=== PATIENT | female | born 1945 | race Two or more races ===

== ENCOUNTER 2017-01-11 14:44 | Inpatient (IN) | payer MEDICARE, OTHER ==
[~2017-01-11] VITALS: Ht 153 cm; Wt 87.5 kg
[~2017-01-11 14:44] MED LIST: ALBUTEROL SULF8.5 GM INH; ASPIRIN81 MG ORAL; ATROVENT HFA12.9 GM IH; CELEBREX200 MG ORAL; CHERATUSSIN AC118 ML PO; ENALAPRIL MALEA20 MG ORAL; ENBREL25 MG SUBQ; FOLIC ACID1 MG ORAL; METFORMIN HCL500 M1 ORAL; METHOTREXATE2.5 MG PO; NEXIUM40 M2 ORAL; NEXIUM40 MG ORAL; NORVASC5 MG ORAL; PRAVACHOL20 MG ORAL; SYNTHROID125 MCG ORAL; TRAMADOL HCL50 MG ORAL
[2017-01-11] MEDS ORDERED: Albuterol ud Inhalation HHN ONE (15:15)
[2017-01-11] MEDS ORDERED: Ipratropium 0.02% Inh Soln 2.5ml UD HHN ONE (15:15)
--- NOTE | 2017-01-11 15:39 | Emergency Room Report ---
History of Present Illness General Chief Complaint: Generalized Weakness Source: Patient Present Illness HPI The patient presents with 3 days of dyspnea and weakness. She's been coughing without any phlegm. She does not have an inhaler at home and denies that she uses a breathing machine. She has felt herself wheezing. She denies any fevers or chills. Her appetite has been poor. There's no vomiting or diarrhea. The patient suffers from rheumatoid arthritis in previously was on a weekly injection to cause her to lose her hair. Her power transformer repairer changed that medication recently. She has chronic joint pain which she rates at 3/10 (but denies pain to RN). No chest pain, NVD, dysuria, Allergies: Coded Allergies: NO KNOWN DRUG ALLERGIES (Unverified Allergy, Unknown, 03/15/14) Patient History Past Medical History: see triage record Past Surgical History: nakul Social History: Denies: smoking Social History Narrative at home Reviewed Nursing Documentation: PMH: Agreed, PSxH: Agreed Nursing Documentation-PMH Past Medical History: No History, Except For Hx Cardiac Problems: Yes - HYPERLIPIDEMIA, Hx Hypertension: Yes Hx Pacemaker: No - Hypothyroidism Hx Asthma: No Hx COPD: No Hx Diabetes: Yes Hx Cancer: No Hx Gastrointestinal Problems: No Hx Dialysis: No History Of Psychiatric Problem: No Hx Neurological Problems: No Hx Cerebrovascular Accident: No Hx Seizures: No Review of Systems All Other Systems: negative except mentioned in HPI Physical Exam Vital Signs Date Time Temp Pulse Resp B/P (MAP) Pulse Ox O2 Delivery O2 Flow Rate FiO2 01/11/17 14:59 97.9 74 16 141/78 90 Room Air 01/11/17 15:26 21 Sp02 EP Interpretation: reviewed, normal General Appearance: no apparent distress, GCS 15, Chronically Ill - frail Head: normocephalic Eyes: bilateral eye normal inspection, bilateral eye PERRL ENT: moist mucus membranes Neck: supple Respiratory: wheezing, expiration - minimal - more on R Cardiovascular #1: regular rate, rhythm Cardiovascular #2: 2+ radial (R) Gastrointestinal: normal inspection, normal bowel sounds, non tender, no mass, non-distended, overweight Musculoskeletal: back normal, gait/station normal, normal range of motion, no calf tenderness, swelling - MCPs with RA deformity Neurologic: alert, oriented x3, grossly normal Psychiatric: mood/affect normal Skin: normal inspection, warm/dry Medical Decision Making Diagnostic Impression: Primary Impression: Dyspnea Qualified Codes: R06.09 - Other forms of dyspnea Additional Impressions: Anemia Qualified Codes: D64.9 - Anemia, unspecified Elevated lactic acid level Bronchospasm Rheumatoid arthritis Qualified Codes: M06.9 - Rheumatoid arthritis, unspecified ER Course The patient presents with dyspnea. Differential includes pneumonia, bronchitis , bronchospasm, acute myocardial infarction, pulmonary embolus amongst others. She's been treated for rheumatoid arthritis. The medicines she is being treated with makes her at risk for possible infection. There is evidence of wheezing which will be treated with breathing treatments. In addition she'll undergo evaluation with blood cultures, EKG, chest x-ray, lactate, CBC, CMP, troponin. Vital signs and history are against pulmonary embolus. EKG is sinus rhythm with a right bundle branch block without acute injury pattern. CXR with interstitial machado, cannot exclude CHF, but no infiltrates. (Suggests no pneumonia.) Labs significant for normal, WBC, anemia, elevated lactic acid. Due to elevated lactic acid and dyspnea with wheezing, levaquin initiated. Improved but still with some hypoxia and dyspnea. Concern over lactic acidosis. Also concern over poor alimentation. Admit tele Dr. Blackburn. Laboratory Tests Test 01/11/17 16:06 01/11/17 16:11 01/11/17 16:40 01/11/17 17:11 White Blood Count 6.9 K/UL (4.8-10.8) Red Blood Count 3.13 M/UL (4.20-5.40) L Hemoglobin 9.3 G/DL (12.0-16.0) L Hematocrit 29.0 % (37.0-47.0) L Mean Corpuscular Volume 93 FL (80-99) Mean Corpuscular Hemoglobin 29.8 PG (27.0-31.0) Mean Corpuscular Hemoglobin Concent 32.2 G/DL (32.0-36.0) Red Cell Distribution Width 13.6 % (11.6-14.8) Platelet Count 120 K/UL (150-450) L Mean Platelet Volume 7.9 FL (6.5-10.1) Neutrophils (%) (Auto) 43.2 % (45.0-75.0) L Lymphocytes (%) (Auto) 44.5 % (20.0-45.0) Monocytes (%) (Auto) 9.1 % (1.0-10.0) Eosinophils (%) (Auto) 2.0 % (0.0-3.0) Basophils (%) (Auto) 1.2 % (0.0-2.0) Sodium Level 134 MMOL/L (136-145) L 136 MMOL/L (136-145) Potassium Level 5.7 MMOL/L (3.5-5.1) H 4.7 MMOL/L (3.5-5.1) Chloride Level 101 MMOL/L (98-107) 103 MMOL/L (98-107) Carbon Dioxide Level 27 MMOL/L (21-32) 28 MMOL/L (21-32) Anion Gap 6 mmol/L (5-15) 6 mmol/L (5-15) Blood Urea Nitrogen 21 mg/dL (7-18) H 22 mg/dL (7-18) H Creatinine 0.8 MG/DL (0.55-1.30) 0.8 MG/DL (0.55-1.30) Estimate Glomerular Filtration Rate mL/min (>60) mL/min (>60) Glucose Level 96 MG/DL (74-106) 93 MG/DL (74-106) Calcium Level 9.3 MG/DL (8.5-10.1) 9.6 MG/DL (8.5-10.1) Total Bilirubin 0.3 MG/DL (0.2-1.0) Aspartate Amino Transferase (AST) 35 U/L (15-37) Alanine Aminotransferase (ALT) 17 U/L (12-78) Alkaline Phosphatase 102 U/L (46-116) Total Creatine Kinase 63 U/L (26-308) Pro-B-Type Natriuretic Peptide 172 pg/mL (0-125) H Total Protein 8.3 G/DL (6.4-8.2) H Albumin 3.0 G/DL (3.4-5.0) L Globulin 5.3 g/dL Albumin/Globulin Ratio 0.6 (1.0-2.7) L Lactic Acid Level 2.80 mmol/L (0.66-2.22) H Prothrombin Time 9.9 SEC (9.30-11.50) Prothrombin Time INR 0.9 (0.9-1.1) PTT 26 SEC (23-33) Test 01/11/17 18:00 Urine Color Yellow Urine Appearance Clear Urine pH 5 (4.5-8.0) Urine Specific [place] 1.015 (1.005-1.035) Urine Protein Negative (NEGATIVE) Urine Glucose (UA) Negative (NEGATIVE) Urine Ketones Negative (NEGATIVE) Urine Occult Blood Negative (NEGATIVE) Urine Nitrite Negative (NEGATIVE) Urine Bilirubin Negative (NEGATIVE) Urine Urobilinogen 1 MG/DL (0.0-1.0) H Urine Leukocyte Esterase 2+ (NEGATIVE) H Urine RBC 0-2 /HPF (0 - 2) Urine WBC 2-4 /HPF (0 - 2) Urine Squamous Epithelial Cells Few /LPF (NONE/OCC) Urine Bacteria Few /HPF (NONE) Lactic Acid Level 2.80 mmol/L (0.66-2.22) H Microbiology Date/Time Source Procedure Growth Status 01/11/17 16:06 Nasal Nares Influenza Types A,B Antigen (ANUJA) - Final Complete EKG Diagnostic Results Rate: normal Rhythm: NSR ST Segments: no acute changes - Right bundle branch block Rhythm Strip Diag. Results EP Interpretation: yes Rhythm: NSR, no PVC's, no ectopy Chest X-Ray Diagnostic Results Chest X-Ray Diagnostic Results : Chest X-Ray Ordered: Yes # of Views/Limited/Complete: 1 View Indication: Shortness of Breath EP Interpretation: Yes Interpretation: no pneumothorax, other - interstitial edema vs scarring - cannot exclude effusions Impression: Other Electronically Signed by: Electronically signed by Amador Pineda MD Last Vital Signs Date Time Temp Pulse Resp B/P (MAP) Pulse Ox O2 Delivery O2 Flow Rate FiO2 01/12/17 01:07 74 20 99 Room Air 21 01/11/17 23:58 97.7 154/73 4.0 Status: improved Disposition: ADMITTED INPATIENT Condition: Serious Amador Pineda M.D. Jan 11, 2017 15:39
[2017-01-11 16:23] LABS: BASOPHILS % (AUTO) 1.2 % (0.0-2.0); HEMOGLOBIN 9.3 G/DL (12.0-16.0); LYMPHOCYTES % (AUTO) 44.5 % (20.0-45.0); MEAN CORPUSCULAR VOLUME 93 FL (80-99); MONOCYTES % (AUTO) 9.1 % (1.0-10.0); NEUTROPHILS % (AUTO) 43.2 % (45.0-75.0); PLATELET COUNT 120 K/UL (150-450); RED BLOOD COUNT 3.13 M/UL (4.20-5.40); RED CELL DISTRIBUTION WIDTH 13.6 % (11.6-14.8); WHITE BLOOD COUNT 6.9 K/UL (4.8-10.8)
[2017-01-11 16:41] LABS: ALANINE AMINOTRANSFERASE 17 U/L (12-78); ALBUMIN/GLOBULIN RATIO 0.6 (1.0-2.7); ALKALINE PHOSPHATASE 102 U/L (46-116); ANION GAP 6 mmol/L (5-15); ASPARTATE AMINO TRANSFERASE 35 U/L (15-37); BILIRUBIN,TOTAL 0.3 MG/DL (0.2-1.0); BLOOD UREA NITROGEN 21 mg/dL (7-18); CALCIUM 9.3 MG/DL (8.5-10.1); CARBON DIOXIDE 27 MMOL/L (21-32); CHLORIDE 101 MMOL/L (98-107); CREATININE 0.8 MG/DL (0.55-1.30); POTASSIUM 5.7 MMOL/L (3.5-5.1); SODIUM 134 MMOL/L (136-145)
[2017-01-11 16:48] LABS: CREATINE KINASE 63 U/L (26-308)
[2017-01-11 17:18] LABS: ANION GAP 6 mmol/L (5-15); BLOOD UREA NITROGEN 22 mg/dL (7-18); CALCIUM 9.6 MG/DL (8.5-10.1); CARBON DIOXIDE 28 MMOL/L (21-32); CHLORIDE 103 MMOL/L (98-107); CREATININE 0.8 MG/DL (0.55-1.30); POTASSIUM 4.7 MMOL/L (3.5-5.1); SODIUM 136 MMOL/L (136-145)
[2017-01-11 17:23] VITALS: BP 122/39
[2017-01-11 17:46] LABS: INR 0.9 (0.9-1.1)
[2017-01-11 18:22] LABS: APPEARANCE,URINE CLEAR; BILIRUBIN, URINE NEGATIVE (NEGATIVE); GLUCOSE, URINE (UA) NEGATIVE (NEGATIVE); KETONES,URINE NEGATIVE (NEGATIVE); LEUKOCYTE ESTERASE ,URINE 2+ (NEGATIVE); NITRITE,URINE NEGATIVE (NEGATIVE); PH,URINE 5 (4.5-8.0); PROTEIN,URINE NEGATIVE (NEGATIVE); UROBILINOGEN,URINE 1 MG/DL (0.0-1.0)
[2017-01-11 18:23] LABS: COLOR,URINE YELLOW
[2017-01-11 19:10] VITALS: BP 118/68
[2017-01-11 20:05] VITALS: BP 118/78
[2017-01-11 21:01] VITALS: BP 120/56
[2017-01-11 22:00] VITALS: BP 126/58
--- NOTE | 2017-01-11 22:36 | Infectious Diseases Prog Note ---
Assessment/Plan Problems: (1) CAP (community acquired pneumonia) Assessment & Plan: with negative influenza test, will start levaquin empiric coverage and treat for 7 days since she is immunocompromised due to RA (2) UTI (urinary tract infection) Assessment & Plan: will start levaquin empiric coverage and send urine culture (3) Rheumatoid arthritis Assessment & Plan: continue Meds , follow up with veterans service representative (4) Dyspnea Assessment & Plan: due to the above, continue inhalers, and oxygen, monitor CXR Subjective Allergies: Coded Allergies: NO KNOWN DRUG ALLERGIES (Unverified Allergy, Unknown, 03/15/14) Objective Vital Signs Last 24 Hour Vital Signs Date Time Temp Pulse Resp B/P (MAP) Pulse Ox O2 Delivery O2 Flow Rate FiO2 01/11/17 22:10 70 14 126/58 96 Nasal Cannula 4.0 01/11/17 22:00 98.7 70 14 126/58 96 Nasal Cannula 4.0 01/11/17 21:01 98.2 68 14 120/56 96 Nasal Cannula 4.0 01/11/17 20:05 98.6 72 14 118/78 97 Nasal Cannula 4.0 01/11/17 19:10 98.4 76 13 118/68 96 Nasal Cannula 4.0 01/11/17 17:23 98.0 69 14 122/39 96 Nasal Cannula 3.0 01/11/17 15:39 68 20 97 Room Air 21 01/11/17 15:28 73 20 97 Room Air 21 01/11/17 15:26 73 18 Room Air 21 01/11/17 14:59 97.9 74 16 141/78 90 Room Air Height (Feet): 5 Height (Inches): 4.00 Weight (Pounds): 190 Microbiology Date/Time Source Procedure Growth Status 01/11/17 16:06 Nasal Nares Influenza Types A,B Antigen (ANUJA) - Final Complete Laboratory Tests Test 01/11/17 16:06 01/11/17 16:11 01/11/17 16:40 01/11/17 17:11 White Blood Count 6.9 K/UL (4.8-10.8) Red Blood Count 3.13 M/UL (4.20-5.40) L Hemoglobin 9.3 G/DL (12.0-16.0) L Hematocrit 29.0 % (37.0-47.0) L Mean Corpuscular Volume 93 FL (80-99) Mean Corpuscular Hemoglobin 29.8 PG (27.0-31.0) Mean Corpuscular Hemoglobin Concent 32.2 G/DL (32.0-36.0) Red Cell Distribution Width 13.6 % (11.6-14.8) Platelet Count 120 K/UL (150-450) L Mean Platelet Volume 7.9 FL (6.5-10.1) Neutrophils (%) (Auto) 43.2 % (45.0-75.0) L Lymphocytes (%) (Auto) 44.5 % (20.0-45.0) Monocytes (%) (Auto) 9.1 % (1.0-10.0) Eosinophils (%) (Auto) 2.0 % (0.0-3.0) Basophils (%) (Auto) 1.2 % (0.0-2.0) Sodium Level 134 MMOL/L (136-145) L 136 MMOL/L (136-145) Potassium Level 5.7 MMOL/L (3.5-5.1) H 4.7 MMOL/L (3.5-5.1) Chloride Level 101 MMOL/L (98-107) 103 MMOL/L (98-107) Carbon Dioxide Level 27 MMOL/L (21-32) 28 MMOL/L (21-32) Anion Gap 6 mmol/L (5-15) 6 mmol/L (5-15) Blood Urea Nitrogen 21 mg/dL (7-18) H 22 mg/dL (7-18) H Creatinine 0.8 MG/DL (0.55-1.30) 0.8 MG/DL (0.55-1.30) Estimat Glomerular Filtration Rate mL/min (>60) mL/min (>60) Glucose Level 96 MG/DL (74-106) 93 MG/DL (74-106) Calcium Level 9.3 MG/DL (8.5-10.1) 9.6 MG/DL (8.5-10.1) Total Bilirubin 0.3 MG/DL (0.2-1.0) Aspartate Amino Transf (AST/SGOT) 35 U/L (15-37) Alanine Aminotransferase (ALT/SGPT) 17 U/L (12-78) Alkaline Phosphatase 102 U/L (46-116) Total Creatine Kinase 63 U/L (26-308) Pro-B-Type Natriuretic Peptide 172 pg/mL (0-125) H Total Protein 8.3 G/DL (6.4-8.2) H Albumin 3.0 G/DL (3.4-5.0) L Globulin 5.3 g/dL Albumin/Globulin Ratio 0.6 (1.0-2.7) L Lactic Acid Level 2.80 mmol/L (0.66-2.22) H Prothrombin Time 9.9 SEC (9.30-11.50) Prothromb Time International Ratio 0.9 (0.9-1.1) Activated Partial Thromboplast Time 26 SEC (23-33) Test 01/11/17 18:00 Urine Color Yellow Urine Appearance Clear Urine pH 5 (4.5-8.0) Urine Specific [place] 1.015 (1.005-1.035) Urine Protein Negative (NEGATIVE) Urine Glucose (UA) Negative (NEGATIVE) Urine Ketones Negative (NEGATIVE) Urine Occult Blood Negative (NEGATIVE) Urine Nitrite Negative (NEGATIVE) Urine Bilirubin Negative (NEGATIVE) Urine Urobilinogen 1 MG/DL (0.0-1.0) H Urine Leukocyte Esterase 2+ (NEGATIVE) H Urine RBC 0-2 /HPF (0 - 2) Urine WBC 2-4 /HPF (0 - 2) Urine Squamous Epithelial Cells Few /LPF (NONE/OCC) Urine Bacteria Few /HPF (NONE) Lactic Acid Level 2.80 mmol/L (0.66-2.22) H Senait Sandoval M.D. Jan 11, 2017 22:36
[2017-01-11] MEDS ORDERED: Acetaminophen 500mg (ES) tab ORAL PRN (23:15)
[2017-01-11 23:58] VITALS: BP 154/73
[2017-01-12] MEDS: Albuterol/Ipratropium 3ml neb HHN PRN ×5 (01:06→21:16)
[2017-01-12] MEDS: guaiFENesin DM 100mg/5ml ORAL PRN ×3 (01:43→15:18)
[2017-01-12 04:21] VITALS: BP 116/62
[2017-01-12] MEDS: NovoLOG Insulin Flexpen SUBQ SCH ×4 (06:30→21:00)
[2017-01-12 07:02] LABS: BASOPHILS % (AUTO) 0.6 % (0.0-2.0); EOSINOPHILS % (AUTO) 2.3 % (0.0-3.0); HEMATOCRIT 36.6 % (37.0-47.0); HEMOGLOBIN 11.7 G/DL (12.0-16.0); LYMPHOCYTES % (AUTO) 24.9 % (20.0-45.0); MEAN CORPUSCULAR VOLUME 93 FL (80-99); MONOCYTES % (AUTO) 11.1 % (1.0-10.0); NEUTROPHILS % (AUTO) 61.2 % (45.0-75.0); PLATELET COUNT 226 K/UL (150-450); RED BLOOD COUNT 3.93 M/UL (4.20-5.40); RED CELL DISTRIBUTION WIDTH 13.7 % (11.6-14.8); WHITE BLOOD COUNT 8.6 K/UL (4.8-10.8)
[2017-01-12 07:28] LABS: ANION GAP 9 mmol/L (5-15); BLOOD UREA NITROGEN 21 mg/dL (7-18); CALCIUM 9.3 MG/DL (8.5-10.1); CARBON DIOXIDE 26 MMOL/L (21-32); CHLORIDE 104 MMOL/L (98-107); CREATININE 0.8 MG/DL (0.55-1.30); POTASSIUM 4.5 MMOL/L (3.5-5.1); SODIUM 139 MMOL/L (136-145)
--- NOTE | 2017-01-12 07:29 | Consultation ---
Consult Note Assessment/Plan [id number] cough copd exacerbation uti ra on IS therapy hypoxemia cough TEMITOPETANI DO Jan 12, 2017 07:29
--- NOTE | 2017-01-12 07:29 | Consultation ---
Consult Note Assessment/Plan [id number] cough copd exacerbation uti ra on IS therapy hypoxemia cough TEMITOPETANI DO Jan 12, 2017 07:29
--- NOTE | 2017-01-12 07:29 | Consultation ---
Consult Note Assessment/Plan [id number] cough copd exacerbation uti ra on IS therapy hypoxemia cough TEMITOPETANI DO Jan 12, 2017 07:29
[2017-01-12 08:48] VITALS: BP 147/67
[2017-01-12] MEDS: metFORMIN 500mg tab ORAL SCH ×2 (08:49→17:40)
[2017-01-12] MEDS ORDERED: Levothyroxine 125mcg tab ORAL SCH (09:00)
--- NOTE | 2017-01-12 11:09 | Diagnostic Imaging Report ---
Indication: Dyspnea Technique: CHEST 1 VIEW Comparison:03/15/2014 Findings: The heart remains enlarged. Diffuse chronic interstitial disease remains. No gross pleural fluid. The bones are unchanged. Impression: Cardiomegaly. Chronic interstitial disease, unchanged from previous exam.
[2017-01-12 11:48] VITALS: BP 114/63
[2017-01-12 15:37] VITALS: BP 105/52
--- NOTE | 2017-01-12 16:12 | Cardiology Progress Note ---
Assessment/Plan Assessment/Plan The patient is seen and examined, full consult note will be dictated. Objective Last 24 Hour Vital Signs Date Time Temp Pulse Resp B/P (MAP) Pulse Ox O2 Delivery O2 Flow Rate FiO2 01/12/17 15:37 97.7 78 20 105/52 95 Nasal Cannula 3.0 01/12/17 15:34 71 18 97 Nasal Cannula 2.0 28 01/12/17 11:48 97.7 84 20 114/63 94 Nasal Cannula 3.0 01/12/17 11:28 76 18 98 Nasal Cannula 2.0 28 01/12/17 11:20 74 16 96 Nasal Cannula 2.0 28 01/12/17 08:50 79 147/67 01/12/17 08:48 97.3 79 20 147/67 93 Nasal Cannula 4.0 01/12/17 08:48 147/67 01/12/17 08:00 76 01/12/17 07:09 72 16 98 Nasal Cannula 2.0 28 01/12/17 07:01 72 18 Nasal Cannula 2.0 28 01/12/17 07:01 72 16 96 Nasal Cannula 2.0 28 01/12/17 07:01 96 Nasal Cannula 2.0 28 01/12/17 07:01 Nasal Cannula 2.0 28 01/12/17 04:21 97.3 72 20 116/62 94 Room Air 01/12/17 04:00 74 01/12/17 01:07 74 20 99 Room Air 21 01/12/17 01:06 70 20 97 Room Air 21 01/12/17 01:00 Nasal Cannula 2.0 28 01/12/17 01:00 70 20 Nasal Cannula 2.0 28 01/12/17 01:00 97 Nasal Cannula 2.0 28 01/11/17 23:58 97.7 69 20 154/73 95 Nasal Cannula 4.0 01/11/17 23:25 66 01/11/17 22:10 70 14 126/58 96 Nasal Cannula 4.0 01/11/17 22:00 98.7 70 14 126/58 96 Nasal Cannula 4.0 01/11/17 21:01 98.2 68 14 120/56 96 Nasal Cannula 4.0 01/11/17 20:05 98.6 72 14 118/78 97 Nasal Cannula 4.0 01/11/17 19:10 98.4 76 13 118/68 96 Nasal Cannula 4.0 01/11/17 17:23 98.0 69 14 122/39 96 Nasal Cannula 3.0 Intake and Output 01/12/17 01/13/17 19:00 07:00 Intake Total 120 ml Output Total 350 ml Balance -230 ml Intake Oral 120 ml Output Urine Total 350 ml Laboratory Tests Test 01/11/17 16:40 01/11/17 17:11 01/11/17 18:00 01/12/17 06:30 Sodium Level 136 MMOL/L (136-145) 139 MMOL/L (136-145) Potassium Level 4.7 MMOL/L (3.5-5.1) 4.5 MMOL/L (3.5-5.1) Chloride Level 103 MMOL/L (98-107) 104 MMOL/L (98-107) Carbon Dioxide Level 28 MMOL/L (21-32) 26 MMOL/L (21-32) Anion Gap 6 mmol/L (5-15) 9 mmol/L (5-15) Blood Urea Nitrogen 22 mg/dL (7-18) H 21 mg/dL (7-18) H Creatinine 0.8 MG/DL (0.55-1.30) 0.8 MG/DL (0.55-1.30) Estimat Glomerular Filtration Rate mL/min (>60) mL/min (>60) Glucose Level 93 MG/DL (74-106) 108 MG/DL (74-106) H Calcium Level 9.6 MG/DL (8.5-10.1) 9.3 MG/DL (8.5-10.1) Prothrombin Time 9.9 SEC (9.30-11.50) Prothromb Time International Ratio 0.9 (0.9-1.1) Activated Partial Thromboplast Time 26 SEC (23-33) Urine Color Yellow Urine Appearance Clear Urine pH 5 (4.5-8.0) Urine Specific [place] 1.015 (1.005-1.035) Urine Protein Negative (NEGATIVE) Urine Glucose (UA) Negative (NEGATIVE) Urine Ketones Negative (NEGATIVE) Urine Occult Blood Negative (NEGATIVE) Urine Nitrite Negative (NEGATIVE) Urine Bilirubin Negative (NEGATIVE) Urine Urobilinogen 1 MG/DL (0.0-1.0) H Urine Leukocyte Esterase 2+ (NEGATIVE) H Urine RBC 0-2 /HPF (0 - 2) Urine WBC 2-4 /HPF (0 - 2) Urine Squamous Epithelial Cells Few /LPF (NONE/OCC) Urine Bacteria Few /HPF (NONE) Lactic Acid Level 2.80 mmol/L (0.66-2.22) H White Blood Count 8.6 K/UL (4.8-10.8) Red Blood Count 3.93 M/UL (4.20-5.40) L Hemoglobin 11.7 G/DL (12.0-16.0) L Hematocrit 36.6 % (37.0-47.0) L Mean Corpuscular Volume 93 FL (80-99) Mean Corpuscular Hemoglobin 29.8 PG (27.0-31.0) Mean Corpuscular Hemoglobin Concent 32.0 G/DL (32.0-36.0) Red Cell Distribution Width 13.7 % (11.6-14.8) Platelet Count 226 K/UL (150-450) # Mean Platelet Volume 7.3 FL (6.5-10.1) Neutrophils (%) (Auto) 61.2 % (45.0-75.0) Lymphocytes (%) (Auto) 24.9 % (20.0-45.0) Monocytes (%) (Auto) 11.1 % (1.0-10.0) H Eosinophils (%) (Auto) 2.3 % (0.0-3.0) Basophils (%) (Auto) 0.6 % (0.0-2.0) Pro-B-Type Natriuretic Peptide 126 pg/mL (0-125) H Microbiology Date/Time Source Procedure Growth Status 01/11/17 16:06 Nasal Nares Influenza Types A,B Antigen (ANUJA) - Final Complete SOLO HIGGINS Jan 12, 2017 16:12
[2017-01-12 17:45] VITALS: BP 109/50
--- NOTE | 2017-01-12 20:00 | Consultation ---
DATE OF CONSULTATION: 01/12/2017 NOTE: INCOMPLETE DICTATION INFECTIOUS DISEASE CONSULTATION CONSULTING PHYSICIAN: Senait Sandoval M.D. REQUESTING PHYSICIAN: Roxanne Blackburn M.D. REASON FOR CONSULTATION: Pneumonia and UTI, recommendation for antibiotics treatment. HISTORY OF PRESENT ILLNESS: The patient is a 71-year-old female with past medical history of hyperlipidemia, hypothyroidism, hypertension, and diabetes, was sent to [facility] emergency room for progressive cough and dyspnea for few days and weakness. The patient had a history of COPD. She used her home nebulizer, but she did not get much benefit. She had also wheezing. No fever or chills. No recent upper respiratory infection. No recent travel or sick contact. She has poor appetite, but no abdominal pain, nausea, vomiting, or diarrhea. The patient had a known history of rheumatoid arthritis and she is on biological medication to treat, which she received on regular basis by her beverage distiller. In the emergency room, the patient had temperature of 97.9, saturating 90% on room air. Chest x-ray showed some interstitial edema suspicious for pneumonia. Urinalysis showed evidence of urinary tract infection. She was consulted by the primary provider for antibiotics treatment and further management. REVIEW OF SYSTEMS: A 14-point of system reviewed were all negative apart from the one I mentioned above in my History and Physical. PAST MEDICAL HISTORY: Significant for diabetes, COPD, hypothyroidism, hypertension, and hyperlipidemia. PAST SURGICAL HISTORY: She has cholecystectomy. ALLERGIES: No known drug allergies. MEDICATIONS: She received levofloxacin in the emergency room and Proventil with Atrovent. For the rest of her medications, please refer to MAR. SOCIAL HISTORY: The patient denied using any drugs, tobacco, or alcohol. FAMILY HISTORY: Noncontributory. LABORATORY AND DIAGNOSTIC DATA: Labs showed white count of 6.9, hemoglobin of 9.3, and platelet count of 120,000. BUN of 22 and creatinine of 0.8. Urinalysis showed +2 leukocyte esterase, WBC 2 to 4, and few bacteria. Microbiology, influenza screening for A and B both are negative. Imaging, chest x-ray showed interstitial pulmonary infiltrates. PHYSICAL EXAMINATION: VITAL SIGNS: Temperature is 97.7 degrees, pulse 69, respirations 20, blood pressure 154/73, and pulse oximetry 95% on 4 liters nasal cannula. Senait Sandoval M.D. DR: NAY JOB#: [id number] CC:
[2017-01-12 20:40] VITALS: BP 102/58
--- NOTE | 2017-01-12 21:23 | Infectious Diseases Prog Note ---
Assessment/Plan Problems: (1) CAP (community acquired pneumonia) Assessment & Plan: with negative influenza test, continue levaquin empiric coverage and treat for 7 days since she is immunocompromised due to RA (2) UTI (urinary tract infection) Assessment & Plan: on levaquin empiric coverage pending urine culture (3) Rheumatoid arthritis Assessment & Plan: continue Meds , follow up with medical record specialist (4) Dyspnea Assessment & Plan: due to the above, continue inhalers, and oxygen, monitor CXR Subjective ROS Limited/Unobtainable: Yes Allergies: Coded Allergies: NO KNOWN DRUG ALLERGIES (Unverified Allergy, Unknown, 03/15/14) Subjective she was up in bed comfortable, no fever or chills, no cough or sob, no diarrhea Objective Vital Signs Last 24 Hour Vital Signs Date Time Temp Pulse Resp B/P (MAP) Pulse Ox O2 Delivery O2 Flow Rate FiO2 01/12/17 21:17 70 20 99 Nasal Cannula 2.0 28 01/12/17 21:16 66 20 98 Nasal Cannula 2.0 28 01/12/17 20:40 97.9 63 19 102/58 94 Room Air 01/12/17 19:44 Nasal Cannula 2.0 28 01/12/17 19:43 74 20 Nasal Cannula 2.0 28 01/12/17 19:43 98 Nasal Cannula 2.0 28 01/12/17 17:45 74 109/50 01/12/17 16:00 76 01/12/17 15:37 97.7 78 20 105/52 95 Nasal Cannula 3.0 01/12/17 15:34 71 18 97 Nasal Cannula 2.0 01/12/17 12:00 75 01/12/17 11:48 97.7 84 20 114/63 94 Nasal Cannula 3.0 01/12/17 11:28 76 18 98 Nasal Cannula 2.0 28 01/12/17 11:20 74 16 96 Nasal Cannula 2.0 28 01/12/17 08:50 79 147/67 01/12/17 08:48 97.3 79 20 147/67 93 Nasal Cannula 4.0 01/12/17 08:48 147/67 01/12/17 08:00 76 01/12/17 07:09 72 16 98 Nasal Cannula 2.0 28 01/12/17 07:01 72 18 Nasal Cannula 2.0 28 01/12/17 07:01 72 16 96 Nasal Cannula 2.0 28 01/12/17 07:01 96 Nasal Cannula 2.0 28 01/12/17 07:01 Nasal Cannula 2.0 28 01/12/17 04:21 97.3 72 20 116/62 94 Room Air 01/12/17 04:00 74 01/12/17 01:07 74 20 99 Room Air 21 01/12/17 01:06 70 20 97 Room Air 21 01/12/17 01:00 Nasal Cannula 2.0 28 01/12/17 01:00 70 20 Nasal Cannula 2.0 28 01/12/17 01:00 97 Nasal Cannula 2.0 28 01/11/17 23:58 97.7 69 20 154/73 95 Nasal Cannula 4.0 01/11/17 23:25 66 01/11/17 22:10 70 14 126/58 96 Nasal Cannula 4.0 01/11/17 22:00 98.7 70 14 126/58 96 Nasal Cannula 4.0 Height (Feet): 5 Height (Inches): 0.25 Weight (Pounds): 193 General Appearance: WD/WN, no acute distress HEENT: normocephalic, atraumatic, anicteric, mucous membranes moist, PERRL Respiratory/Chest: chest wall non-tender, lungs clear, normal breath sounds, no respiratory distress, no accessory muscle use Cardiovascular: normal peripheral pulses, normal rate, regular rhythm, no gallop/murmur, no JVD Abdomen: normal bowel sounds, soft, non tender, no organomegaly, non distended , no mass, no scars Genitourinary: normal external genitalia Extremities: no cyanosis, no clubbing Skin: no rash, no lesions, no ulcers Neurologic/Psychiatric: alert, responsive Microbiology Date/Time Source Procedure Growth Status 01/11/17 16:06 Nasal Nares Influenza Types A,B Antigen (ANUJA) - Final Complete Laboratory Tests Test 01/12/17 06:30 White Blood Count 8.6 K/UL (4.8-10.8) Red Blood Count 3.93 M/UL (4.20-5.40) L Hemoglobin 11.7 G/DL (12.0-16.0) L Hematocrit 36.6 % (37.0-47.0) L Mean Corpuscular Volume 93 FL (80-99) Mean Corpuscular Hemoglobin 29.8 PG (27.0-31.0) Mean Corpuscular Hemoglobin Concent 32.0 G/DL (32.0-36.0) Red Cell Distribution Width 13.7 % (11.6-14.8) Platelet Count 226 K/UL (150-450) # Mean Platelet Volume 7.3 FL (6.5-10.1) Neutrophils (%) (Auto) 61.2 % (45.0-75.0) Lymphocytes (%) (Auto) 24.9 % (20.0-45.0) Monocytes (%) (Auto) 11.1 % (1.0-10.0) H Eosinophils (%) (Auto) 2.3 % (0.0-3.0) Basophils (%) (Auto) 0.6 % (0.0-2.0) Sodium Level 139 MMOL/L (136-145) Potassium Level 4.5 MMOL/L (3.5-5.1) Chloride Level 104 MMOL/L (98-107) Carbon Dioxide Level 26 MMOL/L (21-32) Anion Gap 9 mmol/L (5-15) Blood Urea Nitrogen 21 mg/dL (7-18) H Creatinine 0.8 MG/DL (0.55-1.30) Estimat Glomerular Filtration Rate mL/min (>60) Glucose Level 108 MG/DL (74-106) H Calcium Level 9.3 MG/DL (8.5-10.1) Pro-B-Type Natriuretic Peptide 126 pg/mL (0-125) H Current Medications Medications (Trade) Dose Ordered Sig/Harsh Route PRN Reason Start Time Stop Time Status Last Admin Dose Admin Acetaminophen (Tylenol) 500 mg Q4H PRN ORAL Mild Pain/Temp > 100.5 01/11/17 23:15 02/10/17 23:14 Albuterol/ Ipratropium (Albuterol/ Ipratropium) 3 ml Q4H PRN HHN Shortness of Breath 01/11/17 23:15 01/16/17 23:14 01/12/17 21:16 Amlodipine Besylate (Norvasc) 5 mg BID ORAL 01/11/17 23:15 02/10/17 23:14 01/12/17 08:50 Dextrose (Dextrose 50%) STAT PRN IV Hypoglycemia 01/11/17 23:15 02/10/17 23:14 Enalapril Maleate (Vasotec) 20 mg DAILY ORAL 01/12/17 09:00 02/11/17 08:59 01/12/17 08:48 Guaifenesin/ Dextromethorphan (Robitussin DM) 5 ml Q6H PRN ORAL For Cough 01/12/17 01:15 02/11/17 01:14 01/12/17 15:18 Insulin Aspart (NovoLOG) BEFORE MEALS AND HS SUBQ 01/12/17 06:30 02/11/17 06:29 01/12/17 17:33 Levofloxacin 100 ml @ 100 mls/hr Q24H IVPB 01/12/17 16:00 01/19/17 15:59 01/12/17 15:31 Levothyroxine Sodium (Synthroid) 125 mcg ACBREAKFAST ORAL 01/13/17 06:30 02/12/17 06:29 Metformin HCl (Glucophage) 500 mg TWICE A DAY ORAL 01/12/17 09:00 02/11/17 08:59 01/12/17 17:40 Pravastatin Sodium (Pravachol) 40 mg DAILY ORAL 01/12/17 09:00 02/11/17 08:59 01/12/17 08:49 Senait Sandoval M.D. Jan 12, 2017 21:23
--- NOTE | 2017-01-12 21:45 | Consultation ---
DATE OF CONSULTATION: 01/12/2017 CARDIOLOGY CONSULTATION REFERRING PHYSICIAN: Roxanne Blackburn M.D. REASON FOR CONSULTATION: Management of dyspnea from Cardiology standpoint. HISTORY OF PRESENT ILLNESS: The patient is a very pleasant, morbidly obese, 71-year-old female, who presents to the hospital with dyspnea, weakness, and nonproductive cough for about three days. The patient had some associated wheezing but no fever or chills. She claims that following receiving flu shot, she started to have cough with shortness of breath. She denies any prior history of coronary artery disease or congestive heart failure. Her risk factor for coronary artery disease includes tobacco use for almost 40 years about 3 to 4 cigarettes per day, history of hypertension, and history of diabetes mellitus. On arrival to the hospital, a 12-lead electrocardiogram showed sinus rhythm, heart rate of 70 with right bundle-branch block with no ST and T-wave abnormalities. She was admitted to telemetry for further evaluation and management. I was asked by Dr. Blackburn to see this patient in Cardiology consultation. PAST MEDICAL HISTORY: Hypertension, diabetes mellitus, hyperlipidemia, and hypothyroidism. PAST SURGICAL HISTORY: Cholecystectomy. SOCIAL HISTORY: A 3 to 4 cigarettes per day for about 40 years. Denies any alcohol or illicit drug use. FAMILY HISTORY: No premature coronary artery disease in first-degree relatives. REVIEW OF SYSTEMS: HEENT: Denies any headache, diplopia, or blurred vision. CONSTITUTIONAL: Denies any fever, chills, or night sweats. CARDIOVASCULAR: Denies any chest pain and shortness of breath as mentioned above. Denies any PND, orthopnea, leg swelling, palpitations, or syncope. PULMONARY: Cough as mentioned nonproductive, dry, and shortness of breath as mentioned above. No hemoptysis. She also claims that she had wheezing. ABDOMEN: No diarrhea, constipation, abdominal pain, or GI bleed. GENITOURINARY: Denies any hematuria, dysuria, or incontinence. NEUROLOGIC: Denies any motor dysfunction, sensory deficit, or altered speech. LIST OF MEDICATIONS: Includes amlodipine 5 mg p.o. twice daily, Celebrex 200 mg daily, enalapril 20 mg daily, Nexium 40 mg daily, Synthroid 125 mcg daily, metformin 500 mg twice daily, and Pravachol 80 mg p.o. at bedtime. PHYSICAL EXAMINATION: VITAL SIGNS: Blood pressure at the time of arrival to the hospital was 141/78, pulse of 74, respirations 16, O2 saturation 98% on room air, and temperature 97.9 degrees Fahrenheit. GENERAL: The patient is a very pleasant, 71-year-old female, in no apparent respiratory distress. Morbidly obese. HEENT: Atraumatic and normocephalic. Anicteric. Pupils are equal, round, and reactive to light and accommodation. Extraocular muscles intact. NECK: Cannot assess JVP due to obesity. No carotid bruit. Carotid upstrokes 2+ bilaterally. CARDIOVASCULAR: Normal S1 and S2. Regular rate and rhythm. A 2/6 mid systolic murmur at left sternal border. PMI is at fourth intercostal space at the midclavicular line. LUNGS: Diminished breath sounds with associated rhonchi bilaterally and some crackles at the bases. ABDOMEN: Distended due to obesity. No hepatosplenomegaly. Positive bowel sounds. EXTREMITIES: No evidence of edema, clubbing, or cyanosis. There is rheumatoid deformities of the small joints of both hands and feet. LABORATORY AND DIAGNOSTIC FINDINGS: WBC 6.9, hemoglobin 9.3, hematocrit 29.0, and platelet counts 120,000. There is predominant lymphocytes. Chemistry shows sodium 134, potassium is 5.7, chloride 101, bicarbonate 27, BUN 21, creatinine 0.8, glucose 96, and calcium is 9.3. ProBNP was 172. INR was 0.9. Chest x-ray showed chronic interstitial lung disease, which was unchanged from previous exam and cardiomegaly also mentioned. ASSESSMENT AND PLAN: The patient is a very pleasant 71-year-old female, seen in Cardiology consultation at request of Dr. Blackburn. 1. Dyspnea most likely due to acute bronchitis superimposed on chronic interstitial lung disease likely due to rheumatoid arthritis. I do not see any clinical features of heart failure at this time. However, I would like to obtain 2D echocardiography for assessment of left ventricular systolic and diastolic function. I would also like to measure the pulmonary artery to obtain the value for pulmonary artery pressure in view of the interstitial lung disease. Further diagnostic and therapeutic decision will be based on the results of the above. A proBNP of 200 could be a normal variant in this patient at this age. 2. History of rheumatoid arthritis. 3. History of hypertension. Blood pressure in this admission is well controlled. We will continue the patient on enalapril as well as amlodipine. 4. History of hyperlipidemia currently on high dose of pravastatin. We will continue the current treatment. We would like to obtain fasting lipid panel in the morning. I would like to thank, Dr. Blackburn, for the courtesy of this consultation. Wilman Russell M.D. DR: KRISTI JOB#: [id number] CC:
[2017-01-13] VITALS (7 sets, daily range): BP systolic 97–131; BP diastolic 55–98
[2017-01-13] MEDS ORDERED: CLONAZEPAM2 MG PO (05:49)
[2017-01-13] MEDS ORDERED: Levothyroxine 125mcg tab ORAL SCH (06:30)
[2017-01-13] MEDS: NovoLOG Insulin Flexpen SUBQ SCH ×4 (06:30→20:06)
[2017-01-13 08:09] LABS: BASOPHILS % (AUTO) 0.7 % (0.0-2.0); EOSINOPHILS % (AUTO) 1.8 % (0.0-3.0); HEMATOCRIT 36.1 % (37.0-47.0); HEMOGLOBIN 11.7 G/DL (12.0-16.0); LYMPHOCYTES % (AUTO) 17.1 % (20.0-45.0); MEAN CORPUSCULAR VOLUME 94 FL (80-99); MONOCYTES % (AUTO) 8.2 % (1.0-10.0); NEUTROPHILS % (AUTO) 72.2 % (45.0-75.0); PLATELET COUNT 208 K/UL (150-450); RED BLOOD COUNT 3.84 M/UL (4.20-5.40); RED CELL DISTRIBUTION WIDTH 13.8 % (11.6-14.8); WHITE BLOOD COUNT 8.4 K/UL (4.8-10.8)
[2017-01-13] MEDS: Albuterol/Ipratropium 3ml neb HHN PRN ×2 (08:19→15:30)
[2017-01-13 08:43] LABS: ALANINE AMINOTRANSFERASE 16 U/L (12-78); ALBUMIN 2.9 G/DL (3.4-5.0); ALBUMIN/GLOBULIN RATIO 0.6 (1.0-2.7); ALKALINE PHOSPHATASE 102 U/L (46-116); ANION GAP 8 mmol/L (5-15); ASPARTATE AMINO TRANSFERASE 20 U/L (15-37); BILIRUBIN,TOTAL 0.3 MG/DL (0.2-1.0); BLOOD UREA NITROGEN 22 mg/dL (7-18); CALCIUM 9.2 MG/DL (8.5-10.1); CARBON DIOXIDE 27 MMOL/L (21-32); CHLORIDE 104 MMOL/L (98-107); CHOLESTEROL 113 MG/DL (< 200); CREATININE 0.9 MG/DL (0.55-1.30); HDL CHOLESTEROL 41 MG/DL (40-60); POTASSIUM 4.1 MMOL/L (3.5-5.1); SODIUM 139 MMOL/L (136-145); TRIGLYCERIDES 73 MG/DL (0-200)
--- NOTE | 2017-01-13 08:46 | Consultation ---
DATE OF CONSULTATION: 01/12/2017 PULMONARY CONSULTATION REASON FOR CONSULTATION: Shortness of breath. HISTORY OF PRESENT ILLNESS: The patient was by her family. She has had shortness of breath for approximately four days with a cough that has been worse with difficulty production phlegm. Denies any hemoptysis. Unknown if any fevers or chills. The patient does have a history of rheumatoid arthritis, is immunosuppressed with medications for treatment for her RA, but is not aware of the names of the medications. She denies any chest pain, nausea, vomiting, or diarrhea. She is able to ambulate without any difficulty. She is currently on supplemental oxygen and the nebulizer treatments that have been ordered have been helpful. PAST MEDICAL HISTORY: Rheumatoid arthritis, hyperlipidemia, hypothyroidism, obesity, and COPD. PAST SURGICAL HISTORY: Cholecystectomy. SOCIAL HISTORY: Currently negative for tobacco or drugs. FAMILY HISTORY: Noncontributory. REVIEW OF SYSTEMS: Previously negative for chest pain, shortness of breath, nausea, diarrhea, fever, or chills. PHYSICAL EXAMINATION: GENERAL: At the time of exam, she is alert, she is oriented, she is currently in no acute respiratory distress. VITAL SIGNS: She is afebrile, pulse 72, respirations 16, she is on 2 liters via nasal cannula, saturations are 98%. HEENT: She is normocephalic and atraumatic. Oropharynx is moist. Nasal mucosa is moist. NECK: Supple without lymphadenopathy. LUNGS: Bilateral rhonchi with no wheezes at this time. HEART: Regular rate and rhythm without a murmur. ABDOMEN: Soft and nontender. Positive bowel sounds. EXTREMITIES: No edema. NEUROLOGIC: No focal neurologic deficits. Cranial nerves II through XII are intact. Her affect is appropriate. SKIN: No skin rashes, wounds, or lesions are present. LABORATORY AND DIAGNOSTIC DATA: Her laboratory values have a white count of 8.6, hemoglobin 11.7, and platelets are 226. Her sodium is 139, potassium 4.5, chloride 104, bicarbonate 26, BUN 21, creatinine 0.9, and glucose is 108. Her urinalysis is positive for leukocyte esterase. Chest x-ray is not available for review, but per report has interstitial markings. ASSESSMENT AND PLAN: 1. Urinary tract infection. 2. Bronchitis. 3. Possible viral upper respiratory infection as well. 4. Rheumatoid arthritis, on immunosuppressive therapy. 5. Hypoxemia. 6. Cough. 7. Hypothyroidism. 8. Hypertension. 9. Chronic obstructive pulmonary disease. PLAN: Plan for the patient, unable to visualize the chest x-ray at this time and waiting for it to be uploaded into the system. The patient's underlying respiratory issues could be related to viral etiology and/or possible bronchitis. She is currently on antibiotics, which I will continue, nebulizer treatments. She does have a history of COPD and smoking. She has not had any exacerbation recently, although if wheezing does resume or continue, consideration for steroids at 20 mg daily for five days would be appropriate. We will continue nebulizer treatments. In regard to the patient's rheumatoid arthritis, her immunosuppressive medications could play a factor in regard to possible underlying pulmonary etiology or pulmonary pathology including increased infectious sources as well as pneumonitis. I would review the chest x-ray when available and possible CT scan of her chest if necessary. We will titrate O2, DVT prophylaxis, and we will continue to follow the patient for the remainder of her hospital stay. Yamilet Dhillon D.O. DR: MIGUEL JOB#: [id number] CC:
[2017-01-13] MEDS: metFORMIN 500mg tab ORAL SCH ×2 (08:55→17:35)
[2017-01-13] MEDS: guaiFENesin DM 100mg/5ml ORAL PRN (08:55)
--- NOTE | 2017-01-13 12:38 | Pulmonology Progress Note ---
Assessment/Plan Assessment/Plan cough copd exacerbation uti RA on immunosuppressive therapy hypoxemia CT chest high resolution likely has rheumatoid lung Subjective Respiratory: Denies: productive cough, shortness of breath Allergies: Coded Allergies: NO KNOWN DRUG ALLERGIES (Unverified Allergy, Unknown, 03/15/14) Objective Last 24 Hour Vital Signs Date Time Temp Pulse Resp B/P (MAP) Pulse Ox O2 Delivery O2 Flow Rate FiO2 01/13/17 11:34 97.7 76 18 127/64 95 Room Air 01/13/17 08:56 119/98 01/13/17 08:56 82 119/98 01/13/17 08:21 82 20 99 Room Air 01/13/17 08:20 Room Air 01/13/17 08:20 93 Room Air 01/13/17 08:19 80 20 Room Air 01/13/17 08:18 97.3 77 19 119/98 Room Air 01/13/17 08:15 80 18 93 Room Air 01/13/17 04:15 79 01/13/17 04:00 98.0 79 18 106/63 93 Room Air 01/13/17 00:51 98.5 73 17 126/55 94 Room Air 01/13/17 00:00 71 01/12/17 21:17 70 20 99 Nasal Cannula 2.0 28 01/12/17 21:16 66 20 98 Nasal Cannula 2.0 28 01/12/17 20:40 97.9 63 19 102/58 94 Room Air 01/12/17 20:34 68 01/12/17 19:44 Nasal Cannula 2.0 28 01/12/17 19:43 74 20 Nasal Cannula 2.0 28 01/12/17 19:43 98 Nasal Cannula 2.0 28 01/12/17 17:45 74 109/50 01/12/17 16:00 76 01/12/17 15:37 97.7 78 20 105/52 95 Nasal Cannula 3.0 01/12/17 15:34 71 18 97 Nasal Cannula 2.0 28 General Appearance: no acute distress HEENT: anicteric Respiratory/Chest: lungs clear Cardiovascular: normal rate Microbiology Date/Time Source Procedure Growth Status 01/11/17 16:21 Blood Blood Culture - Preliminary NO GROWTH AFTER 24 HOURS Resulted 01/11/17 16:11 Blood Blood Culture - Preliminary NO GROWTH AFTER 24 HOURS Resulted 01/11/17 16:06 Nasal Nares Influenza Types A,B Antigen (ANUJA) - Final Complete Laboratory Tests 01/13/17 06:45: White Blood Count 8.4, Red Blood Count 3.84L, Hemoglobin 11.7L, Hematocrit 36.1L , Mean Corpuscular Volume 94, Mean Corpuscular Hemoglobin 30.4, Mean Corpuscular Hemoglobin Concent 32.3, Red Cell Distribution Width 13.8, Platelet Count 208, Mean Platelet Volume 6.9, Neutrophils (%) (Auto) 72.2, Lymphocytes (% ) (Auto) 17.1L, Monocytes (%) (Auto) 8.2, Eosinophils (%) (Auto) 1.8, Basophils (%) (Auto) 0.7, Sodium Level 139, Potassium Level 4.1, Chloride Level 104, Carbon Dioxide Level 27, Anion Gap 8, Blood Urea Nitrogen 22H, Creatinine 0.9, Estimat Glomerular Filtration Rate , Glucose Level 106, Calcium Level 9.2, Total Bilirubin 0.3, Aspartate Amino Transf (AST/SGOT) 20, Alanine Aminotransferase (ALT/SGPT) 16, Alkaline Phosphatase 102, Total Protein 7.7, Albumin 2.9L, Globulin 4.8, Albumin/Globulin Ratio 0.6L, Triglycerides Level 73 , Cholesterol Level 113, LDL Cholesterol 62, HDL Cholesterol 41, Cholesterol/ HDL Ratio 2.8L Current Medications Medications (Trade) Dose Ordered Sig/Harsh Route PRN Reason Start Time Stop Time Status Last Admin Dose Admin Acetaminophen (Tylenol) 500 mg Q4H PRN ORAL Mild Pain/Temp > 100.5 01/11/17 23:15 02/10/17 23:14 01/13/17 00:30 Albuterol/ Ipratropium (Albuterol/ Ipratropium) 3 ml Q4H PRN HHN Shortness of Breath 01/11/17 23:15 01/16/17 23:14 01/13/17 08:19 Amlodipine Besylate (Norvasc) 5 mg BID ORAL 01/11/17 23:15 02/10/17 23:14 01/13/17 08:56 Clonazepam (KlonoPIN) 2 mg QHS ORAL 01/12/17 21:45 01/19/17 21:44 01/12/17 21:30 Dextrose (Dextrose 50%) STAT PRN IV Hypoglycemia 01/11/17 23:15 02/10/17 23:14 Enalapril Maleate (Vasotec) 20 mg DAILY ORAL 01/12/17 09:00 02/11/17 08:59 01/13/17 08:56 Guaifenesin/ Dextromethorphan (Robitussin DM) 5 ml Q6H PRN ORAL For Cough 01/12/17 01:15 02/11/17 01:14 01/13/17 08:55 Insulin Aspart (NovoLOG) BEFORE MEALS AND HS SUBQ 01/12/17 06:30 02/11/17 06:29 01/12/17 17:33 Levofloxacin 100 ml @ 100 mls/hr Q24H IVPB 01/12/17 16:00 01/19/17 15:59 01/12/17 15:31 Levothyroxine Sodium (Synthroid) 125 mcg ACBREAKFAST ORAL 01/13/17 06:30 02/12/17 06:29 01/13/17 06:22 Metformin HCl (Glucophage) 500 mg TWICE A DAY ORAL 01/12/17 09:00 02/11/17 08:59 01/13/17 08:55 Pravastatin Sodium (Pravachol) 40 mg DAILY ORAL 01/12/17 09:00 02/11/17 08:59 01/13/17 08:55 ERNIE CAMARGO Jan 13, 2017 12:38
--- NOTE | 2017-01-13 12:40 | Diagnostic Imaging Report ---
Indication: Chest pain Technique: Continuous helical transaxial imaging of the chest was obtained from the thoracic inlet to the upper abdomen. No intravenous contrast was administered. Coronal 2-D reformats were also obtained. Total Dose length Product (DLP): [address] Dose Index Volume (CTDIvol): 2.15, 28.9 mGy Comparison: none Findings: There is evidence of peripheral scattered fibrosis involving portions of both upper lower lobes with septal thickening and fibrosis mild honeycombing. Few paraseptal blebs are noted in the upper lobes. There is no consolidation. No abnormal fluid collections are identified within the chest. The heart is enlarged. Aorta shows mural calcification. There are calcifications involving the coronary arteries as well. Axilla appear clear. The visualized part of the upper abdomen is unremarkable. Multilevel osteoporotic compression fractures noted involving several vertebral bodies within the thoracic and lumbar spine. Several these levels have been treated with kyphoplasty and cement seen at the levels of T7, T8, T11 and L1.. Impression: Interstitial pulmonary fibrosis with peripheral lung distribution with septal fibrosis and honeycombing. Multiple osteoporotic compression fractures. Status post multilevel kyphoplasty. Atherosclerotic disease The CT scanner at [facility] is accredited by the [employer] and the scans are performed using dose optimization techniques as appropriate to a performed exam including Automatic Exposure control.
--- NOTE | 2017-01-13 14:07 | Cardiology Progress Note ---
Assessment/Plan Assessment/Plan 1. Dyspnea likely pulmonary in origin, 2D echo reveals normal LV systolic function with LVEF at 55%. 2. RA/RV dilation, ? SUJATHA, ? interstitial lung disease 3. RA 4. Morbid obesity. 5. Dyslipidemia with low HDL, continue statins. 6. DM, ASA and statins. Subjective Subjective Sinus rhythm at 89. Denies chest pain or SOB. Objective Last 24 Hour Vital Signs Date Time Temp Pulse Resp B/P (MAP) Pulse Ox O2 Delivery O2 Flow Rate FiO2 01/13/17 12:00 80 01/13/17 11:34 97.7 76 18 127/64 95 Room Air 01/13/17 08:56 119/98 01/13/17 08:56 82 119/98 01/13/17 08:21 82 20 99 Room Air 01/13/17 08:20 Room Air 01/13/17 08:20 93 Room Air 01/13/17 08:19 80 20 Room Air 01/13/17 08:18 97.3 77 19 119/98 Room Air 01/13/17 08:15 80 18 93 Room Air 01/13/17 08:00 87 01/13/17 04:15 79 01/13/17 04:00 98.0 79 18 106/63 93 Room Air 01/13/17 00:51 98.5 73 17 126/55 94 Room Air 01/13/17 00:00 71 01/12/17 21:17 70 20 99 Nasal Cannula 2.0 28 01/12/17 21:16 66 20 98 Nasal Cannula 2.0 28 01/12/17 20:40 97.9 63 19 102/58 94 Room Air 01/12/17 20:34 68 01/12/17 19:44 Nasal Cannula 2.0 28 01/12/17 19:43 74 20 Nasal Cannula 2.0 28 01/12/17 19:43 98 Nasal Cannula 2.0 28 01/12/17 17:45 74 109/50 01/12/17 16:00 76 01/12/17 15:37 97.7 78 20 105/52 95 Nasal Cannula 3.0 01/12/17 15:34 71 18 97 Nasal Cannula 2.0 28 Intake and Output 01/13/17 01/14/17 19:00 07:00 Intake Total 240 ml Balance 240 ml Intake Oral 240 ml 2D Echo: LVEF 55%, Mild RA/RV dilation, Grade I LVDD, RVSP 22 mmHg Laboratory Tests Test 01/13/17 06:45 White Blood Count 8.4 K/UL (4.8-10.8) Red Blood Count 3.84 M/UL (4.20-5.40) L Hemoglobin 11.7 G/DL (12.0-16.0) L Hematocrit 36.1 % (37.0-47.0) L Mean Corpuscular Volume 94 FL (80-99) Mean Corpuscular Hemoglobin 30.4 PG (27.0-31.0) Mean Corpuscular Hemoglobin Concent 32.3 G/DL (32.0-36.0) Red Cell Distribution Width 13.8 % (11.6-14.8) Platelet Count 208 K/UL (150-450) Mean Platelet Volume 6.9 FL (6.5-10.1) Neutrophils (%) (Auto) 72.2 % (45.0-75.0) Lymphocytes (%) (Auto) 17.1 % (20.0-45.0) L Monocytes (%) (Auto) 8.2 % (1.0-10.0) Eosinophils (%) (Auto) 1.8 % (0.0-3.0) Basophils (%) (Auto) 0.7 % (0.0-2.0) Sodium Level 139 MMOL/L (136-145) Potassium Level 4.1 MMOL/L (3.5-5.1) Chloride Level 104 MMOL/L (98-107) Carbon Dioxide Level 27 MMOL/L (21-32) Anion Gap 8 mmol/L (5-15) Blood Urea Nitrogen 22 mg/dL (7-18) H Creatinine 0.9 MG/DL (0.55-1.30) Estimat Glomerular Filtration Rate mL/min (>60) Glucose Level 106 MG/DL (74-106) Calcium Level 9.2 MG/DL (8.5-10.1) Total Bilirubin 0.3 MG/DL (0.2-1.0) Aspartate Amino Transf (AST/SGOT) 20 U/L (15-37) Alanine Aminotransferase (ALT/SGPT) 16 U/L (12-78) Alkaline Phosphatase 102 U/L (46-116) Total Protein 7.7 G/DL (6.4-8.2) Albumin 2.9 G/DL (3.4-5.0) L Globulin 4.8 g/dL Albumin/Globulin Ratio 0.6 (1.0-2.7) L Triglycerides Level 73 MG/DL (0-200) Cholesterol Level 113 MG/DL (< 200) LDL Cholesterol 62 mg/dL (<100) HDL Cholesterol 41 MG/DL (40-60) Cholesterol/HDL Ratio 2.8 (3.3-4.4) L Microbiology Date/Time Source Procedure Growth Status 01/11/17 16:21 Blood Blood Culture - Preliminary NO GROWTH AFTER 24 HOURS Resulted 01/11/17 16:11 Blood Blood Culture - Preliminary NO GROWTH AFTER 24 HOURS Resulted 01/11/17 16:06 Nasal Nares Influenza Types A,B Antigen (ANUJA) - Final Complete Objective HEENT: Atraumatic and normocephalic. Anicteric. Pupils are equal, round, and reactive to light and accommodation. Extraocular muscles intact. NECK: Cannot assess JVP due to obesity. No carotid bruit. Carotid upstrokes 2+ bilaterally. CARDIOVASCULAR: Normal S1 and S2. Regular rate and rhythm. A 2/6 mid systolic murmur at left sternal border. PMI is at fourth intercostal space at the midclavicular line. LUNGS: Diminished breath sounds with associated rhonchi bilaterally and some crackles at the bases. ABDOMEN: Distended due to obesity. No hepatosplenomegaly. Positive bowel sounds. EXTREMITIES: No evidence of edema, clubbing, or cyanosis. There is rheumatoid deformities of the small joints of both hands and feet. SOLO HIGGINS Jan 13, 2017 14:07
[2017-01-13] MEDS ORDERED: Aspirin EC 81mg tab ORAL SCH (15:00)
--- NOTE | 2017-01-13 16:11 | Infectious Diseases Prog Note ---
Assessment/Plan Problems: (1) CAP (community acquired pneumonia) Assessment & Plan: improving, with negative influenza test, continue levaquin empiric coverage and treat for 7 days since she is immunocompromised due to RA (2) UTI (urinary tract infection) Assessment & Plan: on levaquin empiric coverage pending urine culture (3) Rheumatoid arthritis Assessment & Plan: continue Meds , follow up with [employer] (4) Dyspnea Assessment & Plan: due to the above, continue inhalers, and oxygen, monitor CXR Subjective Constitutional: Reports: no symptoms HEENT: Reports: no symptoms Respiratory: Reports: dry cough Breasts: Reports: no symptoms Cardiovascular: Reports: no symptoms Gastrointestinal/Abdominal: Reports: no symptoms Genitourinary: Reports: no symptoms Neurologic: Reports: no symptoms Psychiatric: Reports: no symptoms Skin: Reports: no symptoms Endocrine: Reports: no symptoms Hematologic: Reports: no symptoms Musculoskeletal: Reports: no symptoms Allergies: Coded Allergies: NO KNOWN DRUG ALLERGIES (Unverified Allergy, Unknown, 03/15/14) Subjective she was up in bed comfortable, no fever or chills, no cough or sob, no diarrhea Objective Vital Signs Last 24 Hour Vital Signs Date Time Temp Pulse Resp B/P (MAP) Pulse Ox O2 Delivery O2 Flow Rate FiO2 01/13/17 15:42 97.3 81 18 119/79 95 Room Air 01/13/17 15:39 80 20 98 Room Air 01/13/17 15:29 82 18 96 Room Air 01/13/17 12:00 80 01/13/17 11:34 97.7 76 18 127/64 95 Room Air 01/13/17 08:56 119/98 01/13/17 08:56 82 119/98 01/13/17 08:21 82 20 99 Room Air 01/13/17 08:20 Room Air 01/13/17 08:20 93 Room Air 01/13/17 08:19 80 20 Room Air 01/13/17 08:18 97.3 77 19 119/98 Room Air 01/13/17 08:15 80 18 93 Room Air 01/13/17 08:00 87 01/13/17 04:15 79 01/13/17 04:00 98.0 79 18 106/63 93 Room Air 01/13/17 00:51 98.5 73 17 126/55 94 Room Air 01/13/17 00:00 71 01/12/17 21:17 70 20 99 Nasal Cannula 2.0 28 01/12/17 21:16 66 20 98 Nasal Cannula 2.0 28 01/12/17 20:40 97.9 63 19 102/58 94 Room Air 01/12/17 20:34 68 01/12/17 19:44 Nasal Cannula 2.0 28 01/12/17 19:43 74 20 Nasal Cannula 2.0 28 01/12/17 19:43 98 Nasal Cannula 2.0 28 01/12/17 17:45 74 109/50 Height (Feet): 5 Height (Inches): 0.25 Weight (Pounds): 193 General Appearance: WD/WN, no acute distress HEENT: normocephalic, atraumatic, anicteric, mucous membranes moist Respiratory/Chest: chest wall non-tender, no respiratory distress, no accessory muscle use, decreased breath sounds, crackles/rales Cardiovascular: normal peripheral pulses, normal rate, regular rhythm, no gallop/murmur, no JVD Abdomen: normal bowel sounds, soft, non tender, no organomegaly, non distended , no mass, no scars Extremities: no cyanosis, no clubbing Skin: no rash, no lesions, no ulcers Neurologic/Psychiatric: alert, oriented x 3, responsive Lymphatic: no neck adenopathy, no groin adenopathy Microbiology Date/Time Source Procedure Growth Status 01/11/17 16:21 Blood Blood Culture - Preliminary NO GROWTH AFTER 24 HOURS Resulted 01/11/17 16:11 Blood Blood Culture - Preliminary NO GROWTH AFTER 24 HOURS Resulted 01/11/17 16:06 Nasal Nares Influenza Types A,B Antigen (ANUJA) - Final Complete Laboratory Tests Test 01/13/17 06:45 White Blood Count 8.4 K/UL (4.8-10.8) Red Blood Count 3.84 M/UL (4.20-5.40) L Hemoglobin 11.7 G/DL (12.0-16.0) L Hematocrit 36.1 % (37.0-47.0) L Mean Corpuscular Volume 94 FL (80-99) Mean Corpuscular Hemoglobin 30.4 PG (27.0-31.0) Mean Corpuscular Hemoglobin Concent 32.3 G/DL (32.0-36.0) Red Cell Distribution Width 13.8 % (11.6-14.8) Platelet Count 208 K/UL (150-450) Mean Platelet Volume 6.9 FL (6.5-10.1) Neutrophils (%) (Auto) 72.2 % (45.0-75.0) Lymphocytes (%) (Auto) 17.1 % (20.0-45.0) L Monocytes (%) (Auto) 8.2 % (1.0-10.0) Eosinophils (%) (Auto) 1.8 % (0.0-3.0) Basophils (%) (Auto) 0.7 % (0.0-2.0) Sodium Level 139 MMOL/L (136-145) Potassium Level 4.1 MMOL/L (3.5-5.1) Chloride Level 104 MMOL/L (98-107) Carbon Dioxide Level 27 MMOL/L (21-32) Anion Gap 8 mmol/L (5-15) Blood Urea Nitrogen 22 mg/dL (7-18) H Creatinine 0.9 MG/DL (0.55-1.30) Estimat Glomerular Filtration Rate mL/min (>60) Glucose Level 106 MG/DL (74-106) Calcium Level 9.2 MG/DL (8.5-10.1) Total Bilirubin 0.3 MG/DL (0.2-1.0) Aspartate Amino Transf (AST/SGOT) 20 U/L (15-37) Alanine Aminotransferase (ALT/SGPT) 16 U/L (12-78) Alkaline Phosphatase 102 U/L (46-116) Total Protein 7.7 G/DL (6.4-8.2) Albumin 2.9 G/DL (3.4-5.0) L Globulin 4.8 g/dL Albumin/Globulin Ratio 0.6 (1.0-2.7) L Triglycerides Level 73 MG/DL (0-200) Cholesterol Level 113 MG/DL (< 200) LDL Cholesterol 62 mg/dL (<100) HDL Cholesterol 41 MG/DL (40-60) Cholesterol/HDL Ratio 2.8 (3.3-4.4) L Current Medications Medications (Trade) Dose Ordered Sig/Harsh Route PRN Reason Start Time Stop Time Status Last Admin Dose Admin Acetaminophen (Tylenol) 500 mg Q4H PRN ORAL Mild Pain/Temp > 100.5 01/11/17 23:15 02/10/17 23:14 01/13/17 00:30 Albuterol/ Ipratropium (Albuterol/ Ipratropium) 3 ml Q4H PRN HHN Shortness of Breath 01/11/17 23:15 01/16/17 23:14 01/13/17 15:30 Amlodipine Besylate (Norvasc) 5 mg BID ORAL 01/11/17 23:15 02/10/17 23:14 01/13/17 08:56 Aspirin (Ecotrin) 81 mg DAILY ORAL 01/13/17 15:00 02/12/17 14:59 Clonazepam (KlonoPIN) 2 mg QHS ORAL 01/12/17 21:45 01/19/17 21:44 01/12/17 21:30 Dextrose (Dextrose 50%) STAT PRN IV Hypoglycemia 01/11/17 23:15 02/10/17 23:14 Enalapril Maleate (Vasotec) 20 mg DAILY ORAL 01/12/17 09:00 02/11/17 08:59 01/13/17 08:56 Guaifenesin/ Dextromethorphan (Robitussin DM) 5 ml Q6H PRN ORAL For Cough 01/12/17 01:15 02/11/17 01:14 01/13/17 08:55 Insulin Aspart (NovoLOG) BEFORE MEALS AND HS SUBQ 01/12/17 06:30 02/11/17 06:29 01/12/17 17:33 Levofloxacin 100 ml @ 100 mls/hr Q24H IVPB 01/12/17 16:00 01/19/17 15:59 01/12/17 15:31 Levothyroxine Sodium (Synthroid) 125 mcg ACBREAKFAST ORAL 01/13/17 06:30 02/12/17 06:29 01/13/17 06:22 Metformin HCl (Glucophage) 500 mg TWICE A DAY ORAL 01/12/17 09:00 02/11/17 08:59 01/13/17 08:55 Pravastatin Sodium (Pravachol) 40 mg DAILY ORAL 01/12/17 09:00 02/11/17 08:59 01/13/17 08:55 Senait Sandoval M.D. Jan 13, 2017 16:11
--- NOTE | 2017-01-13 19:29 | Cardiology Report ---
APPROVED REPORT EXAM: Two-dimensional and M-mode echocardiogram with Doppler and color Doppler. INDICATION Shortness of breath Other Information Technically limited study due to body habitus. Technically difficult and limited study due to poor patient body habitus. Study quality precludes accurate assessment of regional wall motion. M-mode measurements of left ventricle not obtainable due to cardiac position (angle) Normal left ventricular chamber size, systolic function and wall motion. Left ventricular ejection fraction estimated to be 55 %. No evidence left ventricular hypertrophy. Anterior Echo-free space, may be due to pericardial fat or effusion. All other cardiac chamber sizes are within normal limits. Mild right ventricular enlargement. Mild right atrial enlargement. Left atrial chamber size is within normal limits. Mild focal aortic valve sclerosis with adequate cusp excursion. Mildly thickened mitral valve leaflets with normal excursion. Mild mitral annulus and aortic root calcification. Pulmonic valve not visualized. Normal tricuspid valve structure. IVC dilated at 2.2 cm with physiologic collapse, estimated RAP is 10 mmHg. A color flow and spectral Doppler study was performed and revealed: No aortic regurgitation. No mitral regurgitation. Mitral diastolic velocities suggest reduced left ventricular relaxation c/w mild LV diastolic dysfunction (Grade I ). Mild tricuspid regurgitation. Tricuspid systolic velocities suggests peak right ventricular systolic pressure of 22 mmHg.
--- NOTE | 2017-01-13 20:21 | Cardiology Report ---
APPROVED REPORT EKG Measurement Heart [id number] 150P20 [id number] Normal sinus rhythm Right bundle branch block Abnormal ECG
--- NOTE | 2017-01-13 20:21 | Cardiology Report ---
APPROVED REPORT EKG Measurement Heart [id number] 150P20 [id number] Normal sinus rhythm Right bundle branch block Abnormal ECG
--- NOTE | 2017-01-13 20:21 | Cardiology Report ---
APPROVED REPORT EKG Measurement Heart [id number] 150P20 [id number] Normal sinus rhythm Right bundle branch block Abnormal ECG
[2017-01-13] MEDS ORDERED: Acetaminophen 500mg (ES) tab ORAL PRN (23:15)
[2017-01-13] MEDS ORDERED: Albuterol/Ipratropium 3ml neb HHN PRN (23:15)
--- NOTE | 2017-01-14 00:44 | Consultation ---
History of Present Illness General Chief Complaint: Generalized Weakness Present Illness HPI 71-year-old female, who presents to the hospital with dyspnea, weakness, and nonproductive cough for about three days. The patient had some associated wheezing but no fever or chills. the pt was anxious during the eval daughter was in the room and was translating. the pt is confused most of the time the pt is already on klonopin Allergies: Coded Allergies: NO KNOWN DRUG ALLERGIES (Unverified Allergy, Unknown, 03/15/14) Medication History Scheduled Amlodipine Besylate (Norvasc), 5 MG ORAL BID, (Reported) Celecoxib* (Celebrex*), 200 MG ORAL DAILY, (Reported) Clonazepam (Clonazepam), 2 MG PO QHS, (Reported) Enalapril Maleate* (Enalapril Maleate*), 20 MG ORAL DAILY, (Reported) Esomeprazole Magnesium (Nexium), 40 MG ORAL DAILY, (Reported) Levothyroxine Sodium* (Synthroid*), 125 MCG ORAL DAILY, (Reported) Metformin Hcl* (Metformin Hcl*), 500 MG ORAL TWICE A DAY, (Reported) Pravastatin Sod* (Pravachol*), 80 MG ORAL DAILY, (Reported) Discontinued Medications Aspirin* (Aspirin*), 81 MG ORAL DAILY, (Reported) Discontinued Reason: Pt stopped taking med Etanercept (Enbrel), 25 MG SUBQ THREE TIMES A WEEK, (Reported) Discontinued Reason: Pt stopped taking med Folic Acid* (Folic Acid*), 1 MG ORAL DAILY, (Reported) Discontinued Reason: Pt stopped taking med Methotrexate Sodium* (Methotrexate*), 2.5 MG PO ONCE A WEEK, (Reported) Discontinued Reason: Pt stopped taking med Patient History History Provided By: Patient, Family Member, Medical Record, PMD Healthcare decision maker Resuscitation status Full Code Advanced Directive on File Review of Systems Psychiatric: Reports: prior hx, anxiety, depressed feelings, emotional problems Physical Exam General Appearance: no apparent distress, alert Neurologic: alert, oriented x 3, responsive Last 24 Hour Vital Signs Date Time Temp Pulse Resp B/P (MAP) Pulse Ox O2 Delivery O2 Flow Rate FiO2 01/13/17 23:51 99.1 96 19 131/84 93 Room Air 01/13/17 22:30 86 20 99 Nasal Cannula 2.0 28 01/13/17 22:29 83 20 98 Nasal Cannula 2.0 28 01/13/17 20:28 97.5 90 20 97/70 97 Room Air 01/13/17 20:28 97.3 81 18 119/79 95 Room Air 2.0 28 01/13/17 19:30 82 20 Room Air 21 01/13/17 19:30 Room Air 21 01/13/17 19:30 95 Room Air 21 01/13/17 16:00 72 01/13/17 15:42 97.3 81 18 119/79 95 Room Air 01/13/17 15:39 80 20 98 Room Air 01/13/17 15:29 82 18 96 Room Air 01/13/17 12:00 80 01/13/17 11:34 97.7 76 18 127/64 95 Room Air 01/13/17 08:56 119/98 01/13/17 08:56 82 119/98 01/13/17 08:21 82 20 99 Room Air 01/13/17 08:20 Room Air 01/13/17 08:20 93 Room Air 01/13/17 08:19 80 20 Room Air 01/13/17 08:18 97.3 77 19 119/98 Room Air 01/13/17 08:15 80 18 93 Room Air 01/13/17 08:00 87 01/13/17 04:15 79 01/13/17 04:00 98.0 79 18 106/63 93 Room Air 01/13/17 00:51 98.5 73 17 126/55 94 Room Air Laboratory Tests Test 01/13/17 06:45 White Blood Count 8.4 K/UL (4.8-10.8) Red Blood Count 3.84 M/UL (4.20-5.40) L Hemoglobin 11.7 G/DL (12.0-16.0) L Hematocrit 36.1 % (37.0-47.0) L Mean Corpuscular Volume 94 FL (80-99) Mean Corpuscular Hemoglobin 30.4 PG (27.0-31.0) Mean Corpuscular Hemoglobin Concent 32.3 G/DL (32.0-36.0) Red Cell Distribution Width 13.8 % (11.6-14.8) Platelet Count 208 K/UL (150-450) Mean Platelet Volume 6.9 FL (6.5-10.1) Neutrophils (%) (Auto) 72.2 % (45.0-75.0) Lymphocytes (%) (Auto) 17.1 % (20.0-45.0) L Monocytes (%) (Auto) 8.2 % (1.0-10.0) Eosinophils (%) (Auto) 1.8 % (0.0-3.0) Basophils (%) (Auto) 0.7 % (0.0-2.0) Sodium Level 139 MMOL/L (136-145) Potassium Level 4.1 MMOL/L (3.5-5.1) Chloride Level 104 MMOL/L (98-107) Carbon Dioxide Level 27 MMOL/L (21-32) Anion Gap 8 mmol/L (5-15) Blood Urea Nitrogen 22 mg/dL (7-18) H Creatinine 0.9 MG/DL (0.55-1.30) Estimat Glomerular Filtration Rate mL/min (>60) Glucose Level 106 MG/DL (74-106) Calcium Level 9.2 MG/DL (8.5-10.1) Total Bilirubin 0.3 MG/DL (0.2-1.0) Aspartate Amino Transf (AST/SGOT) 20 U/L (15-37) Alanine Aminotransferase (ALT/SGPT) 16 U/L (12-78) Alkaline Phosphatase 102 U/L (46-116) Total Protein 7.7 G/DL (6.4-8.2) Albumin 2.9 G/DL (3.4-5.0) L Globulin 4.8 g/dL Albumin/Globulin Ratio 0.6 (1.0-2.7) L Triglycerides Level 73 MG/DL (0-200) Cholesterol Level 113 MG/DL (< 200) LDL Cholesterol 62 mg/dL (<100) HDL Cholesterol 41 MG/DL (40-60) Cholesterol/HDL Ratio 2.8 (3.3-4.4) L Height (Feet): 5 Height (Inches): 0.25 Weight (Pounds): 193 Medications Current Medications Medications (Trade) Dose Ordered Sig/Harsh Route PRN Reason Start Time Stop Time Status Last Admin Dose Admin Acetaminophen (Tylenol) 500 mg Q4H PRN ORAL Mild Pain/Temp > 100.5 01/13/17 23:15 02/10/17 23:14 Albuterol/ Ipratropium (Albuterol/ Ipratropium) 3 ml Q4H PRN HHN Shortness of Breath 01/13/17 23:15 01/16/17 23:14 01/13/17 22:29 Amlodipine Besylate (Norvasc) 5 mg BID ORAL 01/14/17 09:00 02/10/17 23:14 Aspirin (Ecotrin) 81 mg DAILY ORAL 01/14/17 09:00 02/12/17 14:59 Clonazepam (KlonoPIN) 2 mg QHS ORAL 01/14/17 21:00 01/19/17 21:44 Dextrose (Dextrose 50%) STAT PRN IV Hypoglycemia 01/13/17 23:15 02/10/17 23:14 Enalapril Maleate (Vasotec) 20 mg DAILY ORAL 01/14/17 09:00 02/11/17 08:59 Guaifenesin/ Dextromethorphan (Robitussin DM) 5 ml Q6H PRN ORAL For Cough 01/14/17 01:15 02/11/17 01:14 Insulin Aspart (NovoLOG) BEFORE MEALS AND HS SUBQ 01/14/17 06:30 02/11/17 06:29 Levofloxacin 100 ml @ 100 mls/hr Q24H IVPB 01/14/17 16:00 01/19/17 15:59 Levothyroxine Sodium (Synthroid) 125 mcg ACBREAKFAST ORAL 01/14/17 06:30 02/12/17 06:29 Metformin HCl (Glucophage) 500 mg BIAC ORAL 01/14/17 06:30 02/13/17 06:29 Pravastatin Sodium (Pravachol) 40 mg DAILY ORAL 01/14/17 09:00 02/11/17 08:59 Assessment/Plan Status: stable, progressing Radha Gonzalez M.D. Jan 14, 2017 00:44
--- NOTE | 2017-01-14 00:46 | General Progress Note ---
Assessment/Plan Status: stable Assessment/Plan lexapro 10mg for anxiety Subjective Date patient seen: Jan 13, 2017 Neurologic/Psychiatric: Reports: anxiety, depressed, emotional problems Allergies: Coded Allergies: NO KNOWN DRUG ALLERGIES (Unverified Allergy, Unknown, 03/15/14) Objective Last 24 Hour Vital Signs Date Time Temp Pulse Resp B/P (MAP) Pulse Ox O2 Delivery O2 Flow Rate FiO2 01/13/17 23:51 99.1 96 19 131/84 93 Room Air 01/13/17 22:30 86 20 99 Nasal Cannula 2.0 28 01/13/17 22:29 83 20 98 Nasal Cannula 2.0 28 01/13/17 20:28 97.5 90 20 97/70 97 Room Air 01/13/17 20:28 97.3 81 18 119/79 95 Room Air 2.0 28 01/13/17 19:30 82 20 Room Air 21 01/13/17 19:30 Room Air 21 01/13/17 19:30 95 Room Air 21 01/13/17 16:00 72 01/13/17 15:42 97.3 81 18 119/79 95 Room Air 01/13/17 15:39 80 20 98 Room Air 01/13/17 15:29 82 18 96 Room Air 01/13/17 12:00 80 01/13/17 11:34 97.7 76 18 127/64 95 Room Air 01/13/17 08:56 119/98 01/13/17 08:56 82 119/98 01/13/17 08:21 82 20 99 Room Air 01/13/17 08:20 Room Air 01/13/17 08:20 93 Room Air 01/13/17 08:19 80 20 Room Air 01/13/17 08:18 97.3 77 19 119/98 Room Air 01/13/17 08:15 80 18 93 Room Air 01/13/17 08:00 87 01/13/17 04:15 79 01/13/17 04:00 98.0 79 18 106/63 93 Room Air 01/13/17 00:51 98.5 73 17 126/55 94 Room Air Laboratory Tests 01/13/17 06:45: White Blood Count 8.4, Red Blood Count 3.84L, Hemoglobin 11.7L, Hematocrit 36.1L , Mean Corpuscular Volume 94, Mean Corpuscular Hemoglobin 30.4, Mean Corpuscular Hemoglobin Concent 32.3, Red Cell Distribution Width 13.8, Platelet Count 208, Mean Platelet Volume 6.9, Neutrophils (%) (Auto) 72.2, Lymphocytes (% ) (Auto) 17.1L, Monocytes (%) (Auto) 8.2, Eosinophils (%) (Auto) 1.8, Basophils (%) (Auto) 0.7, Sodium Level 139, Potassium Level 4.1, Chloride Level 104, Carbon Dioxide Level 27, Anion Gap 8, Blood Urea Nitrogen 22H, Creatinine 0.9, Estimat Glomerular Filtration Rate , Glucose Level 106, Calcium Level 9.2, Total Bilirubin 0.3, Aspartate Amino Transf (AST/SGOT) 20, Alanine Aminotransferase (ALT/SGPT) 16, Alkaline Phosphatase 102, Total Protein 7.7, Albumin 2.9L, Globulin 4.8, Albumin/Globulin Ratio 0.6L, Triglycerides Level 73 , Cholesterol Level 113, LDL Cholesterol 62, HDL Cholesterol 41, Cholesterol/ HDL Ratio 2.8L Height (Feet): 5 Height (Inches): 0.25 Weight (Pounds): 193 General Appearance: no apparent distress, alert, overweight Neurologic: alert, oriented x 3, responsive, depressed affect Radha Gonzalez M.D. Jan 14, 2017 00:46
[2017-01-14] MEDS ORDERED: guaiFENesin DM 100mg/5ml ORAL PRN (01:15)
[2017-01-14 04:15] VITALS: BP 118/68
[2017-01-14] MEDS ORDERED: Levothyroxine 125mcg tab ORAL SCH (06:30)
[2017-01-14] MEDS ORDERED: metFORMIN 500mg tab ORAL SCH (06:30)
[2017-01-14] MEDS: NovoLOG Insulin Flexpen SUBQ SCH ×2 (06:43→12:14)
--- NOTE | 2017-01-14 08:31 | History and Physical Report ---
DATE OF ADMISSION: 01/11/2017 HISTORY OF PRESENT ILLNESS: The patient comes in with dyspnea, bronchospasm, CHF, and elevated lactate. The patient also complains of nonproductive cough for a week. No chest pain, shortness of breath at this time. He states he has rheumatoid arthritis and does have orthopnea as well and leg edema. Denies fever or chills. Denies heartburn. Denies abdominal pain. PAST MEDICAL HISTORY: Significant for history of rheumatoid arthritis, anemia, hypothyroidism, GERD, hypertension, anxiety, degenerative joint disease, and hyperlipidemia. PAST SURGICAL HISTORY: Bilateral knee replacement, back surgery, cholecystectomy, and thyroidectomy. MEDICATIONS: Klonopin, Celebrex, enalapril, Nexium, Levoxyl, metformin, . ALLERGIES: No known allergies. SOCIAL HISTORY: The patient smokes. Denies history of drug or alcohol use. Lives at home with family. FAMILY HISTORY: . REVIEW OF SYSTEMS: HEENT: Denies headaches. RESPIRATORY: Reports productive cough for one week and shortness of breath. CARDIOVASCULAR: No chest pain. She does have orthopnea and leg swelling. GASTROINTESTINAL: Soft, nontender, and nondistended. Denies heartburn. EXTREMITIES: Does have radiculopathic pain, which is chronic. CENTRAL NERVOUS SYSTEM: Denies change in vision or speech pattern. PHYSICAL EXAMINATION: VITAL SIGNS: Temperature 97.7, pulse 76, and blood pressure 137/64. HEENT: PERRLA. NECK: Supple. No lymphadenopathy. CHEST: Bibasilar rales. CARDIOVASCULAR: Regular rate and rhythm. GASTROINTESTINAL: Soft and nontender. No organomegaly. EXTREMITIES: A 1+ edema. NEUROLOGIC: Reflexes are equal on both sides with generalized weakness. IMAGING: Chest x-ray positive for pulmonary congestion and vascularization. LABORATORY DATA: Laboratory lazaro, WBC of 6.9, hemoglobin 9.3, and platelets of 120. Sodium 137, potassium 4.7, BUN of 22, creatinine 0.8, glucose of 93. ASSESSMENT: 1. Congestive heart failure. 2. Bronchospasm. 3. Elevated lactate. 4. Cough. 5. Chronic pain syndrome. PLAN: I have asked Dr. Ramirez, , Dr. Russell, Dr. Johnson, Dr. Sandoval, and Dr. Gonzalez to see the patient to rule out pneumonia as well as for the treatment of possible above-mentioned diagnoses and treatment. Roxanne Blackburn M.D. DR: RYLAN JOB#: [id number] CC:
[2017-01-14 08:35] VITALS: BP 131/75
--- NOTE | 2017-01-14 08:52 | Consultation ---
History of Present Illness General Chief Complaint: Present Illness Allergies: Coded Allergies: NO KNOWN DRUG ALLERGIES (Unverified Allergy, Unknown, 03/15/14) Medication History Scheduled Amlodipine Besylate (Norvasc), 5 MG ORAL BID, (Reported) Celecoxib* (Celebrex*), 200 MG ORAL DAILY, (Reported) Clonazepam (Clonazepam), 2 MG PO QHS, (Reported) Enalapril Maleate* (Enalapril Maleate*), 20 MG ORAL DAILY, (Reported) Esomeprazole Magnesium (Nexium), 40 MG ORAL DAILY, (Reported) Levothyroxine Sodium* (Synthroid*), 125 MCG ORAL DAILY, (Reported) Metformin Hcl* (Metformin Hcl*), 500 MG ORAL TWICE A DAY, (Reported) Pravastatin Sod* (Pravachol*), 80 MG ORAL DAILY, (Reported) Discontinued Medications Aspirin* (Aspirin*), 81 MG ORAL DAILY, (Reported) Discontinued Reason: Pt stopped taking med Etanercept (Enbrel), 25 MG SUBQ THREE TIMES A WEEK, (Reported) Discontinued Reason: Pt stopped taking med Folic Acid* (Folic Acid*), 1 MG ORAL DAILY, (Reported) Discontinued Reason: Pt stopped taking med Methotrexate Sodium* (Methotrexate*), 2.5 MG PO ONCE A WEEK, (Reported) Discontinued Reason: Pt stopped taking med Patient History Healthcare decision maker Resuscitation status Full Code Advanced Directive on File Physical Exam Last 24 Hour Vital Signs Date Time Temp Pulse Resp B/P (MAP) Pulse Ox O2 Delivery O2 Flow Rate FiO2 01/14/17 08:46 131/75 01/14/17 08:45 78 131/75 01/14/17 08:35 98.4 78 19 131/75 96 Room Air 01/14/17 07:08 Room Air 01/14/17 07:08 87 18 Room Air 01/14/17 07:08 94 Room Air 01/14/17 04:15 98.8 99 18 118/68 94 Room Air 01/13/17 23:51 99.1 96 19 131/84 93 Room Air 01/13/17 22:30 86 20 99 Nasal Cannula 2.0 01/13/17 22:29 83 20 98 Nasal Cannula 2.0 01/13/17 20:28 97.5 90 20 97/70 97 Room Air 01/13/17 20:28 97.3 81 18 119/79 95 Room Air 2.0 28 01/13/17 19:30 82 20 Room Air 21 01/13/17 19:30 Room Air 21 01/13/17 19:30 95 Room Air 21 01/13/17 16:00 72 01/13/17 15:42 97.3 81 18 119/79 95 Room Air 01/13/17 15:39 80 20 98 Room Air 01/13/17 15:29 82 18 96 Room Air 01/13/17 12:00 80 01/13/17 11:34 97.7 76 18 127/64 95 Room Air 01/13/17 08:56 119/98 01/13/17 08:56 82 119/98 Intake and Output 01/14/17 01/15/17 19:00 07:00 Intake Total 280 ml Balance 280 ml Intake Oral 280 ml Height (Feet): 5 Height (Inches): 0.25 Weight (Pounds): 193 Medications Current Medications Medications (Trade) Dose Ordered Sig/Harsh Route PRN Reason Start Time Stop Time Status Last Admin Dose Admin Acetaminophen (Tylenol) 500 mg Q4H PRN ORAL Mild Pain/Temp > 100.5 01/13/17 23:15 02/10/17 23:14 01/14/17 03:18 Albuterol/ Ipratropium (Albuterol/ Ipratropium) 3 ml Q4H PRN HHN Shortness of Breath 01/13/17 23:15 01/16/17 23:14 01/13/17 22:29 Amlodipine Besylate (Norvasc) 5 mg BID ORAL 01/14/17 09:00 02/10/17 23:14 01/14/17 08:45 Aspirin (Ecotrin) 81 mg DAILY ORAL 01/14/17 09:00 02/12/17 14:59 01/14/17 08:45 Clonazepam (KlonoPIN) 2 mg QHS ORAL 01/14/17 21:00 01/19/17 21:44 Dextrose (Dextrose 50%) STAT PRN IV Hypoglycemia 01/13/17 23:15 02/10/17 23:14 Enalapril Maleate (Vasotec) 20 mg DAILY ORAL 01/14/17 09:00 02/11/17 08:59 01/14/17 08:46 Escitalopram Oxalate (Lexapro) 10 mg DAILY ORAL 01/14/17 09:00 02/13/17 08:59 01/14/17 08:45 Guaifenesin/ Dextromethorphan (Robitussin DM) 5 ml Q6H PRN ORAL For Cough 01/14/17 01:15 02/11/17 01:14 Insulin Aspart (NovoLOG) BEFORE MEALS AND HS SUBQ 01/14/17 06:30 02/11/17 06:29 01/14/17 06:43 Levofloxacin 100 ml @ 100 mls/hr Q24H IVPB 01/14/17 16:00 01/19/17 15:59 Levothyroxine Sodium (Synthroid) 125 mcg ACBREAKFAST ORAL 01/14/17 06:30 02/12/17 06:29 01/14/17 06:39 Lidocaine (Lidoderm 5% PATCH) 1 patch DAILY TDERMAL 01/14/17 09:00 02/13/17 08:59 UNV Metformin HCl (Glucophage) 500 mg BIAC ORAL 01/14/17 06:30 02/13/17 06:29 01/14/17 06:39 Pravastatin Sodium (Pravachol) 40 mg DAILY ORAL 01/14/17 09:00 02/11/17 08:59 01/14/17 08:45 Assessment/Plan Assessment/Plan (1) Left ankle pain (2) Left ankle OA seen dictated TAMAR RENNER Jan 14, 2017 08:52
[2017-01-14] MEDS ORDERED: Aspirin EC 81mg tab ORAL SCH (09:00)
--- NOTE | 2017-01-14 11:33 | Diagnostic Imaging Report ---
Indication: left ankle pain Comparison: None Findings: 3 views of the left ankle obtained. No acute fracture, malalignment, periostitis, or osteochondral defects are identified. Bones are diffusely osteopenic. Soft tissue swelling is noted especially in the lateral side. Impression: No acute findings
--- NOTE | 2017-01-14 11:58 | Diagnostic Imaging Report ---
APPROVED REPORT CPT Code: 51640 Present Symptoms Shortness of breath RIGHT LEG: Venous imaging reveals a patent deep venous system. There is no evidence of thrombus within the femoral, popliteal or tibial segments. The greater saphenous vein is also within normal limits. Doppler indicates normal spontaneous flow within these segments. LEFT LEG: Venous imaging reveals a patent deep venous system. There is no evidence of thrombus within the femoral, popliteal or tibial segments. The greater saphenous vein is also within normal limits. Doppler indicates normal spontaneous flow within these segments. The proximal superficial femoral vein was not visualized.
--- NOTE | 2017-01-14 11:58 | Diagnostic Imaging Report ---
APPROVED REPORT CPT Code: 86273 Present Symptoms Shortness of breath RIGHT LEG: Venous imaging reveals a patent deep venous system. There is no evidence of thrombus within the femoral, popliteal or tibial segments. The greater saphenous vein is also within normal limits. Doppler indicates normal spontaneous flow within these segments. LEFT LEG: Venous imaging reveals a patent deep venous system. There is no evidence of thrombus within the femoral, popliteal or tibial segments. The greater saphenous vein is also within normal limits. Doppler indicates normal spontaneous flow within these segments. The proximal superficial femoral vein was not visualized.
--- NOTE | 2017-01-14 11:58 | Diagnostic Imaging Report ---
APPROVED REPORT CPT Code: 95344 Present Symptoms Shortness of breath RIGHT LEG: Venous imaging reveals a patent deep venous system. There is no evidence of thrombus within the femoral, popliteal or tibial segments. The greater saphenous vein is also within normal limits. Doppler indicates normal spontaneous flow within these segments. LEFT LEG: Venous imaging reveals a patent deep venous system. There is no evidence of thrombus within the femoral, popliteal or tibial segments. The greater saphenous vein is also within normal limits. Doppler indicates normal spontaneous flow within these segments. The proximal superficial femoral vein was not visualized.
[2017-01-14 12:01] VITALS: BP 110/74
--- NOTE | 2017-01-14 13:35 | Infectious Diseases Prog Note ---
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 (4) Dyspnea Assessment & Plan: resolved , due to the above, continue inhalers, and oxygen, monitor CXR Subjective Constitutional: Reports: no symptoms HEENT: Reports: no symptoms Respiratory: Reports: no symptoms Breasts: Reports: no symptoms Cardiovascular: Reports: no symptoms Gastrointestinal/Abdominal: Reports: no symptoms Genitourinary: Reports: no symptoms Neurologic: Reports: no symptoms Psychiatric: Reports: no symptoms Skin: Reports: no symptoms Endocrine: Reports: no symptoms Hematologic: Reports: no symptoms Musculoskeletal: Reports: no symptoms Allergies: Coded Allergies: NO KNOWN DRUG ALLERGIES (Unverified Allergy, Unknown, 03/15/14) Subjective she was up in bed comfortable, no fever or chills, no cough or sob, no diarrhea Objective Vital Signs Last 24 Hour Vital Signs Date Time Temp Pulse Resp B/P (MAP) Pulse Ox O2 Delivery O2 Flow Rate FiO2 01/14/17 12:01 98.5 79 19 110/74 92 Room Air 01/14/17 08:46 131/75 01/14/17 08:45 78 131/75 01/14/17 08:35 98.4 78 19 131/75 96 Room Air 01/14/17 07:08 Room Air 01/14/17 07:08 87 18 Room Air 01/14/17 07:08 94 Room Air 01/14/17 04:15 98.8 99 18 118/68 94 Room Air 01/13/17 23:51 99.1 96 19 131/84 93 Room Air 01/13/17 22:30 86 20 99 Nasal Cannula 2.0 01/13/17 22:29 83 20 98 Nasal Cannula 2.0 01/13/17 20:28 97.5 90 20 97/70 97 Room Air 01/13/17 20:28 97.3 81 18 119/79 95 Room Air 2.0 01/13/17 19:30 82 20 Room Air 01/13/17 19:30 Room Air 01/13/17 19:30 95 Room Air 21 01/13/17 16:00 72 01/13/17 15:42 97.3 81 18 119/79 95 Room Air 01/13/17 15:39 80 20 98 Room Air 01/13/17 15:29 82 18 96 Room Air Height (Feet): 5 Height (Inches): 0.25 Weight (Pounds): 193 General Appearance: WD/WN, no acute distress HEENT: normocephalic, atraumatic, anicteric, mucous membranes moist, PERRL Respiratory/Chest: chest wall non-tender, lungs clear, normal breath sounds, no respiratory distress, no accessory muscle use Cardiovascular: normal peripheral pulses, normal rate, regular rhythm, no gallop/murmur, no JVD Abdomen: normal bowel sounds, soft, non tender, no organomegaly, non distended , no mass, no scars Extremities: no cyanosis, no clubbing Skin: no rash, no lesions, no ulcers Neurologic/Psychiatric: alert, oriented x 3, responsive Microbiology Date/Time Source Procedure Growth Status 01/11/17 16:21 Blood Blood Culture - Preliminary NO GROWTH AFTER 48 HOURS Resulted 01/11/17 16:11 Blood Blood Culture - Preliminary NO GROWTH AFTER 48 HOURS Resulted 01/11/17 16:06 Nasal Nares Influenza Types A,B Antigen (ANUJA) - Final Complete Current Medications Medications (Trade) Dose Ordered Sig/Harsh Route PRN Reason Start Time Stop Time Status Last Admin Dose Admin Acetaminophen (Tylenol) 500 mg Q4H PRN ORAL Mild Pain/Temp > 100.5 01/13/17 23:15 02/10/17 23:14 01/14/17 03:18 Albuterol/ Ipratropium (Albuterol/ Ipratropium) 3 ml Q4H PRN HHN Shortness of Breath 01/13/17 23:15 01/16/17 23:14 01/13/17 22:29 Amlodipine Besylate (Norvasc) 5 mg BID ORAL 01/14/17 09:00 02/10/17 23:14 01/14/17 08:45 Aspirin (Ecotrin) 81 mg DAILY ORAL 01/14/17 09:00 02/12/17 14:59 01/14/17 08:45 Clonazepam (KlonoPIN) 2 mg QHS ORAL 01/14/17 21:00 01/19/17 21:44 Dextrose (Dextrose 50%) STAT PRN IV Hypoglycemia 01/13/17 23:15 02/10/17 23:14 Enalapril Maleate (Vasotec) 20 mg DAILY ORAL 01/14/17 09:00 02/11/17 08:59 01/14/17 08:46 Escitalopram Oxalate (Lexapro) 10 mg DAILY ORAL 01/14/17 09:00 02/13/17 08:59 01/14/17 08:45 Guaifenesin/ Dextromethorphan (Robitussin DM) 5 ml Q6H PRN ORAL For Cough 01/14/17 01:15 02/11/17 01:14 Insulin Aspart (NovoLOG) BEFORE MEALS AND HS SUBQ 01/14/17 06:30 02/11/17 06:29 01/14/17 12:14 Levofloxacin 100 ml @ 100 mls/hr Q24H IVPB 01/14/17 16:00 01/19/17 15:59 Levothyroxine Sodium (Synthroid) 125 mcg ACBREAKFAST ORAL 01/14/17 06:30 02/12/17 06:29 01/14/17 06:39 Lidocaine (Lidoderm 5% PATCH) 1 patch DAILY TDERMAL 01/14/17 09:00 02/13/17 08:59 01/14/17 09:22 Metformin HCl (Glucophage) 500 mg BIAC ORAL 01/14/17 06:30 02/13/17 06:29 01/14/17 06:39 Pravastatin Sodium (Pravachol) 40 mg DAILY ORAL 01/14/17 09:00 02/11/17 08:59 01/14/17 08:45 Senati Sandoval M.D. Jan 14, 2017 13:34
--- NOTE | 2017-01-14 14:09 | Pulmonology Progress Note ---
Assessment/Plan Assessment/Plan Rheumatoid lung disease copd exacerbation uti RA on immunosuppressive therapy hypoxemia CT chest high resolution shows interstitial disease c/w rheumatoid lung defer to rheumatology re treatment Subjective Respiratory: Reports: shortness of breath Allergies: Coded Allergies: NO KNOWN DRUG ALLERGIES (Unverified Allergy, Unknown, 03/15/14) Objective Last 24 Hour Vital Signs Date Time Temp Pulse Resp B/P (MAP) Pulse Ox O2 Delivery O2 Flow Rate FiO2 01/14/17 12:01 98.5 79 19 110/74 92 Room Air 01/14/17 08:46 131/75 01/14/17 08:45 78 131/75 01/14/17 08:35 98.4 78 19 131/75 96 Room Air 01/14/17 07:08 Room Air 01/14/17 07:08 87 18 Room Air 21 01/14/17 07:08 94 Room Air 21 01/14/17 04:15 98.8 99 18 118/68 94 Room Air 01/13/17 23:51 99.1 96 19 131/84 93 Room Air 01/13/17 22:30 86 20 99 Nasal Cannula 2.0 28 01/13/17 22:29 83 20 98 Nasal Cannula 2.0 28 01/13/17 20:28 97.5 90 20 97/70 97 Room Air 01/13/17 20:28 97.3 81 18 119/79 95 Room Air 2.0 28 01/13/17 19:30 82 20 Room Air 21 01/13/17 19:30 Room Air 21 01/13/17 19:30 95 Room Air 21 01/13/17 16:00 72 01/13/17 15:42 97.3 81 18 119/79 95 Room Air 01/13/17 15:39 80 20 98 Room Air 01/13/17 15:29 82 18 96 Room Air Intake and Output 01/14/17 01/15/17 19:00 07:00 Intake Total 280 ml Balance 280 ml Intake Oral 280 ml General Appearance: no acute distress Respiratory/Chest: crackles/rales - few Microbiology Date/Time Source Procedure Growth Status 01/11/17 16:21 Blood Blood Culture - Preliminary NO GROWTH AFTER 48 HOURS Resulted 01/11/17 16:11 Blood Blood Culture - Preliminary NO GROWTH AFTER 48 HOURS Resulted 01/11/17 16:06 Nasal Nares Influenza Types A,B Antigen (ANUJA) - Final Complete Current Medications Medications (Trade) Dose Ordered Sig/Harsh Route PRN Reason Start Time Stop Time Status Last Admin Dose Admin Acetaminophen (Tylenol) 500 mg Q4H PRN ORAL Mild Pain/Temp > 100.5 01/13/17 23:15 02/10/17 23:14 01/14/17 03:18 Albuterol/ Ipratropium (Albuterol/ Ipratropium) 3 ml Q4H PRN HHN Shortness of Breath 01/13/17 23:15 01/16/17 23:14 01/13/17 22:29 Amlodipine Besylate (Norvasc) 5 mg BID ORAL 01/14/17 09:00 02/10/17 23:14 01/14/17 08:45 Aspirin (Ecotrin) 81 mg DAILY ORAL 01/14/17 09:00 02/12/17 14:59 01/14/17 08:45 Clonazepam (KlonoPIN) 2 mg QHS ORAL 01/14/17 21:00 01/19/17 21:44 Dextrose (Dextrose 50%) STAT PRN IV Hypoglycemia 01/13/17 23:15 02/10/17 23:14 Enalapril Maleate (Vasotec) 20 mg DAILY ORAL 01/14/17 09:00 02/11/17 08:59 01/14/17 08:46 Escitalopram Oxalate (Lexapro) 10 mg DAILY ORAL 01/14/17 09:00 02/13/17 08:59 01/14/17 08:45 Guaifenesin/ Dextromethorphan (Robitussin DM) 5 ml Q6H PRN ORAL For Cough 01/14/17 01:15 02/11/17 01:14 Insulin Aspart (NovoLOG) BEFORE MEALS AND HS SUBQ 01/14/17 06:30 02/11/17 06:29 01/14/17 12:14 Levofloxacin 100 ml @ 100 mls/hr Q24H IVPB 01/14/17 16:00 01/19/17 15:59 Levothyroxine Sodium (Synthroid) 125 mcg ACBREAKFAST ORAL 01/14/17 06:30 02/12/17 06:29 01/14/17 06:39 Lidocaine (Lidoderm 5% PATCH) 1 patch DAILY TDERMAL 01/14/17 09:00 02/13/17 08:59 01/14/17 09:22 Metformin HCl (Glucophage) 500 mg BIAC ORAL 01/14/17 06:30 02/13/17 06:29 01/14/17 06:39 Pravastatin Sodium (Pravachol) 40 mg DAILY ORAL 01/14/17 09:00 02/11/17 08:59 01/14/17 08:45 ERNIE CAMARGO Jan 14, 2017 14:09
--- NOTE | 2017-01-14 14:52 | General Progress Note ---
Assessment/Plan Status: stable, progressing Assessment/Plan lexapro 10mg for anxiety Subjective Neurologic/Psychiatric: Reports: anxiety, depressed, emotional problems Allergies: Coded Allergies: NO KNOWN DRUG ALLERGIES (Unverified Allergy, Unknown, 03/15/14) Subjective the pts is doing well. the pt is less anxious. Objective Last 24 Hour Vital Signs Date Time Temp Pulse Resp B/P (MAP) Pulse Ox O2 Delivery O2 Flow Rate FiO2 01/14/17 12:01 98.5 79 19 110/74 92 Room Air 01/14/17 08:46 131/75 01/14/17 08:45 78 131/75 01/14/17 08:35 98.4 78 19 131/75 96 Room Air 01/14/17 07:08 Room Air 01/14/17 07:08 87 18 Room Air 01/14/17 07:08 94 Room Air 01/14/17 04:15 98.8 99 18 118/68 94 Room Air 01/13/17 23:51 99.1 96 19 131/84 93 Room Air 01/13/17 22:30 86 20 99 Nasal Cannula 2.0 01/13/17 22:29 83 20 98 Nasal Cannula 2.0 28 01/13/17 20:28 97.5 90 20 97/70 97 Room Air 01/13/17 20:28 97.3 81 18 119/79 95 Room Air 2.0 01/13/17 19:30 82 20 Room Air 01/13/17 19:30 Room Air 21 01/13/17 19:30 95 Room Air 01/13/17 16:00 72 01/13/17 15:42 97.3 81 18 119/79 95 Room Air 01/13/17 15:39 80 20 98 Room Air 01/13/17 15:29 82 18 96 Room Air Intake and Output 01/14/17 01/15/17 19:00 07:00 Intake Total 500 ml Balance 500 ml Intake Oral 500 ml # Voids 2 Height (Feet): 5 Height (Inches): 0.25 Weight (Pounds): 193 General Appearance: no apparent distress, alert Neurologic: alert, oriented x 3, responsive, depressed affect Radha Gonzalez M.D. Jan 14, 2017 14:52
[2017-01-14] MEDS ORDERED: Levofloxacin 500mg tab ORAL SCH (16:00)
--- NOTE | 2017-01-15 00:08 | Cardiology Progress Note ---
Assessment/Plan Assessment/Plan LATE ENTRY CARDIOLOGY PROGRESS NOTE DATE OF ENCOUNTER 01/14/17 TIME OF ENCOUNTER: 9:30 AM 1. Dyspnea likely pulmonary in origin, normal LV systolic function with LVEF at 55%. 2. RA/RV dilation, ? SUJATHA, ? interstitial lung disease, weight reduction, dietary habit change, ? RHC. 3. RA 4. Morbid obesity. 5. Dyslipidemia with low HDL, continue statins. 6. DM, continue ASA and statins. Subjective Subjective Transferred to med-surg unit. Denies chest pain or SOB. Objective Last 24 Hour Vital Signs Date Time Temp Pulse Resp B/P (MAP) Pulse Ox O2 Delivery O2 Flow Rate FiO2 01/14/17 12:01 98.5 79 19 110/74 92 Room Air 01/14/17 08:46 131/75 01/14/17 08:45 78 131/75 01/14/17 08:35 98.4 78 19 131/75 96 Room Air 01/14/17 07:08 Room Air 21 01/14/17 07:08 87 18 Room Air 21 01/14/17 07:08 94 Room Air 21 01/14/17 04:15 98.8 99 18 118/68 94 Room Air 2D Echo: LVEF 55%, Mild RA/RV dilation, Grade I LVDD, RVSP 22 mmHg Objective HEENT: Atraumatic and normocephalic. Anicteric. Pupils are equal, round, and reactive to light and accommodation. Extraocular muscles intact. NECK: Cannot assess JVP due to obesity. No carotid bruit. Carotid upstrokes 2 + bilaterally. CARDIOVASCULAR: Normal S1 and S2. Regular rate and rhythm. A 2/6 mid systolic murmur at LSB, PMI is at fourth intercostal space at the midclavicular line. LUNGS: Diminished breath sounds with associated rhonchi bilaterally and some crackles at the bases. ABDOMEN: Distended due to obesity. No hepatosplenomegaly. Positive bowel sounds. EXTREMITIES: No evidence of edema, clubbing, or cyanosis. There is rheumatoid deformities of the small joints of both hands and feet. SOLO HIGGINS Jan 15, 2017 00:08
--- NOTE | 2017-01-15 07:32 | Consultation ---
DATE OF CONSULTATION: 01/14/2017 PAIN MANAGEMENT CONSULTATION CONSULTING PHYSICIAN: Favian Ramirez M.D. REFERRING PHYSICIAN: Roxanne Blackburn M.D. PHYSICIAN FABRICATOR SPECIAL ITEMS: Logan Robins CHIEF COMPLAINT: Left ankle pain. HISTORY OF PRESENT ILLNESS: This is a 71-year-old female, who is being seen on the Med/Surg floor of [facility], [place] for initial comprehensive pain management consultation. The patient has been having left ankle pain for the past few days, describing to me as aching, throbbing pain, which is worse with movement. Reports a history of rheumatoid arthritis and osteoarthritis, admitted to the hospital under the care of Dr. Blackburn due to gastrointestinal and has a history of COPD. At this time, the patient is not on any pain medication. We were consulted so that the patient would have adequate pain control while here in the hospital. PAST MEDICAL HISTORY: Rheumatoid arthritis, , hypothyroidism, COPD, hyperlipidemia, hypertension. PAST SURGICAL HISTORY: Cholecystectomy. MEDICATIONS: Norvasc, Celebrex, clonazepam, enalapril, Nexium, Synthroid, metformin, lovastatin, aspirin, Enbrel, folic acid, and methotrexate. ALLERGIES: No known drug allergies. SOCIAL HISTORY: Denies smoking, tobacco, drinking alcohol, or drug abuse. REVIEW OF SYSTEMS: Denies rash, fever, chills, sweating, dizziness, drowsiness, or change in her weight. No shortness of breath, chest pain, palpitations, or cough. No nausea, vomiting, diarrhea, or blood in the stool or urine. No bowel or bladder incontinence. No dysuria. She is complaining of left ankle pain. PHYSICAL EXAMINATION: GENERAL: Alert, awake, and oriented. VITAL SIGNS: Blood pressure 131/75, heart rate 78, oxygen saturation 96%, respiratory rate 19, and temperature 98.4 degrees Fahrenheit. HEENT: PERRLA. NECK: Range of motion is full in all directions. No tenderness to paracervical muscles. No adenopathy. LUNGS: Decreased breath sounds bilaterally. HEART: Regular. ABDOMEN: Obese. BACK: Range of motion is decreased in flexion and extension. EXTREMITIES: Upper extremity range of motion is full in all directions. Motor is intact. No cyanosis. No clubbing. No edema. Sensory is intact. Reflexes are unobtainable. No adenopathy. Lower extremity range of motion is decreased due to the patient's clinical condition. Motor is reduced due to generalized weakness. No cyanosis. No clubbing. Swelling noted in the left ankle with tenderness to palpation. Sensory is intact. Reflexes are unobtainable. No adenopathy. ASSESSMENT AND PLAN: This is a 71-year-old female with left ankle pain with left ankle osteoarthritis. The patient will be started on Lidoderm patch to be applied to the left ankle at the site of the pain 12 hours on and 12 hours off. X-ray of the left ankle will be ordered to rule out any further pathology. The patient was discussed with Dr. Ramirez and Dr. Ramirez concurred. We will follow the patient. Thank you very much for the courtesy of this consultation. Favian Ramirez M.D. KAMARI Robins DR: Vickey JOB#: [id number] CC:
--- NOTE | 2017-01-16 10:21 | Discharge Summary ---
Discharge Summary Hospital Course Date of Admission Jan 11, 2017 at 20:36 Date of Discharge Jan 14, 2017 at 14:30 Admitting Diagnosis dyspnea HPI Cristiane Manzo is a 71 year old female who was admitted on Jan 11, 2017 at 20:36 for Dyspnea Hospital Course [id number] Discharge Discharge Disposition Patient was discharged to Home with Home Health(06) Discharge Diagnoses: Fidelia Patel NP Jan 16, 2017 10:21
--- NOTE | 2017-01-16 10:21 | Discharge Summary ---
Discharge Summary Hospital Course Date of Admission Jan 11, 2017 at 20:36 Date of Discharge Jan 14, 2017 at 14:30 Admitting Diagnosis dyspnea HPI Cristiane Manzo is a 71 year old female who was admitted on Jan 11, 2017 at 20:36 for Dyspnea Hospital Course [id number] Discharge Discharge Disposition Patient was discharged to Home with Home Health(06) Discharge Diagnoses: Fidelia Patel NP Jan 16, 2017 10:21
--- NOTE | 2017-01-16 10:21 | Discharge Summary ---
Discharge Summary Hospital Course Date of Admission Jan 11, 2017 at 20:36 Date of Discharge Jan 14, 2017 at 14:30 Admitting Diagnosis dyspnea HPI Cristiane Manzo is a 71 year old female who was admitted on Jan 11, 2017 at 20:36 for Dyspnea Hospital Course [id number] Discharge Discharge Disposition Patient was discharged to Home with Home Health(06) Discharge Diagnoses: Fidelia Patel NP Jan 16, 2017 10:21
--- NOTE | 2017-01-17 08:00 | Discharge Summary 2 SIG ---
DATE OF ADMISSION: 01/11/2017 DATE OF DISCHARGE: 01/14/2017 CONSULTANTS: 1. Favian Ramirez M.D. 2. Wilman Russell M.D. 3. Radha Gonzalez M.D. 4. Jann Johnson M.D. 5. Senait Sandoval M.D. BRIEF HOSPITAL COURSE: The patient is a 71-year-old female, presented to ED with 3 days of dyspnea and weakness and has been having cough. She has history of rheumatoid arthritis and is on immunosuppressant medications with weekly injections. 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 On evaluation at ED, she was wheezing and was given nebulizer treatments. EKG done showed normal sinus rhythm with right bundle-branch block without any acute injury pattern. Chest x-ray showed interstitial markings but no infiltrates. Blood work showed anemia, hemoglobin of 9.3, hematocrit 29. Lactic acid was elevated to 2.8. Due to dyspnea and wheezing with elevated lactic acid, antibiotic treatment was initiated and was given Levaquin. The patient is on immunocompromised state due to rheumatoid arthritis. Influenza test was done and was negative. She was continued on antihypertensives amlodipine and enalapril, and blood sugar was monitored and was given insulin sliding scale and metformin 500 mg b.i.d. She had a venous duplex of the lower extremity that was negative for DVT. Chest CT showed interstitial pulmonary fibrosis with septal fibrosis and honeycombing. She has history of anxiety and was given Lexapro 10 mg. She complained of pain on the ankles. X-ray done showed no acute findings. Bones are diffusely osteopenic. She was given lidocaine patch to the left ankle. She had an elevated BNP, however, with no clinical features of heart failure. Echocardiogram done showed EF of 55% and right ventricular systolic pressure of 22. This was likely pulmonary in origin as there was normal LV systolic function. She has right atrial and right ventricular dilatation and has dyslipidemia with low HDL. She was given aspirin and pravastatin 40 mg daily. She was saturating well on room air and blood cultures did not isolate any growth. She was eventually discharged home with home health. FINAL DIAGNOSES: 1. Acute chronic obstructive pulmonary disease exacerbation. 2. Rheumatoid lung disease. 3. Community-acquired pneumonia. 4. Urinary tract infection. 5. Rheumatoid arthritis. 6. Morbid obesity. 7. Dyslipidemia. 8. Diabetes mellitus. 9. Right atrial and right ventricular dilatation. 10. Left ankle pain with osteoarthritis. 11. Anxiety disorder. DISPOSITION: The patient was discharged home with home health. DISCHARGE MEDICATIONS: Continue home medications. 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 Roxanne Blackburn M.D. I have been assigned to dictate discharge summary on this account and I was not involved in the patient's management. Fidelia Patel N.P. DR: LUCILA JOB#: [id number] CC:
== END 2017-01-14 14:30 | disposition home or self-care (01) | DRG 194 ==
LOC: EMR 15:30 → EDBEDREQ 20:00 → ENRESERV 20:16 → MERGE 20:36 → 2E 20:36 → 3E 01-13 20:55
DX: J18.9 Pneumonia, unspecified organism (principal); N39.0 Urinary tract infection, site not specified; I50.9 Heart failure, unspecified; J84.10 Pulmonary fibrosis, unspecified; R06.00 Dyspnea, unspecified; J44.1 Chronic obstructive pulmonary disease with (acute) exacerbation; E11.9 Type 2 diabetes mellitus without complications; D64.9 Anemia, unspecified; Z96.653 Presence of artificial knee joint, bilateral; E03.9 Hypothyroidism, unspecified; E78.5 Hyperlipidemia, unspecified; G89.4 Chronic pain syndrome; E66.01 Morbid (severe) obesity due to excess calories; M05.10 Rheumatoid lung disease with rheumatoid arthritis of unspecified site; M19.072 Primary osteoarthritis, left ankle and foot; F41.9 Anxiety disorder, unspecified; Z79.84 Long term (current) use of oral hypoglycemic drugs; F17.200 Nicotine dependence, unspecified, uncomplicated
CPT/HCPCS: 36415; 71010; 71250; 80048; 80053; 80061; 81003; 82550; 82962; 83605; 83880; 85025; 85610; 85730; 86710; 87040; 93005; 93306; 93970; 94640; 94664; 94760; 99285; J1815; J7620

== ENCOUNTER 2017-06-14 16:05 | Inpatient (IN) | payer MEDICARE, OTHER ==
[~2017-06-14] VITALS: Ht 162.6 cm; Wt 90.7 kg
[~2017-06-14 16:05] MED LIST changes: +CLONAZEPAM2 MG PO
[2017-06-14 16:34] VITALS: BP 100/77
[2017-06-14] MEDS ORDERED: Albuterol/Ipratropium 3ml neb HHN ONE (17:30)
[2017-06-14] MEDS ORDERED: Solu-MEDROL 125mg Inj IVP ONE (17:30)
[2017-06-14 17:50] LABS: BASOPHILS % (AUTO) 0.7 % (0.0-2.0); EOSINOPHILS % (AUTO) 1.2 % (0.0-3.0); HEMATOCRIT 34.5 % (37.0-47.0); HEMOGLOBIN 11.3 G/DL (12.0-16.0); LYMPHOCYTES % (AUTO) 25.7 % (20.0-45.0); MEAN CORPUSCULAR VOLUME 88 FL (80-99); MONOCYTES % (AUTO) 11.1 % (1.0-10.0); NEUTROPHILS % (AUTO) 61.4 % (45.0-75.0); PLATELET COUNT 214 K/UL (150-450); RED BLOOD COUNT 3.94 M/UL (4.20-5.40); RED CELL DISTRIBUTION WIDTH 15.2 % (11.6-14.8); WHITE BLOOD COUNT 8.3 K/UL (4.8-10.8)
[2017-06-14 17:59] LABS: ANION GAP 7 mmol/L (5-15); BLOOD UREA NITROGEN 17 mg/dL (7-18); CALCIUM 9.2 MG/DL (8.5-10.1); CARBON DIOXIDE 27 MMOL/L (21-32); CHLORIDE 105 MMOL/L (98-107); CREATININE 0.7 MG/DL (0.55-1.30); POTASSIUM 4.8 MMOL/L (3.5-5.1); SODIUM 139 MMOL/L (136-145)
[2017-06-14 18:14] LABS: ALANINE AMINOTRANSFERASE 13 U/L (12-78); ALBUMIN 3.1 G/DL (3.4-5.0); ALBUMIN/GLOBULIN RATIO 0.6 (1.0-2.7); ALKALINE PHOSPHATASE 106 U/L (46-116); ASPARTATE AMINO TRANSFERASE 20 U/L (15-37); BILIRUBIN,TOTAL 0.1 MG/DL (0.2-1.0); CKMB < 0.5 NG/ML (0.0-3.6); CREATINE KINASE 47 U/L (26-308)
[2017-06-14] MEDS ORDERED: ENALAPRIL MALEA10 MG ORAL (19:13)
[2017-06-14 19:30] VITALS: BP 158/96
[2017-06-14 19:34] LABS: APPEARANCE,URINE CLEAR; BILIRUBIN, URINE NEGATIVE (NEGATIVE); COLOR,URINE PALE YELLOW; GLUCOSE, URINE (UA) NEGATIVE (NEGATIVE); KETONES,URINE NEGATIVE (NEGATIVE); LEUKOCYTE ESTERASE ,URINE NEGATIVE (NEGATIVE); NITRITE,URINE NEGATIVE (NEGATIVE); PH,URINE 5 (4.5-8.0); PROTEIN,URINE NEGATIVE (NEGATIVE); UROBILINOGEN,URINE NORMAL MG/DL (0.0-1.0)
[2017-06-14] MEDS ORDERED: PRAVASTATIN SOD80 M1 ORAL (19:34)
--- NOTE | 2017-06-14 21:09 | Emergency Room Report ---
History of Present Illness General Chief Complaint: Shortness of breath Source: Patient Present Illness HPI Patient's 71-year-old female who presented after increased shortness of breath.The patient gradual onset of symptoms. She had increased productive cough. Patient had been slightly treated with antibiotics for pneumonia. She had been noted to have been prescribed inhaler but was unsure how to use them. The patient reports having some leg swelling Allergies: Coded Allergies: NO KNOWN ALLERGIES (Unverified Allergy, Unknown, 03/07/15) NO KNOWN DRUG ALLERGIES (Unverified Allergy, Unknown, 03/19/17) Patient History Past Medical History: see triage record Reviewed Nursing Documentation: PMH: Agreed; PSxH: Agreed Nursing Documentation-PMH Hx Hypertension: Yes Hx Diabetes: Yes Hx Neurological Problems: No - Rheumatoid arthritis Review of Systems All Other Systems: negative except mentioned in HPI Physical Exam Vital Signs Date Time Temp Pulse Resp B/P (MAP) Pulse Ox O2 Delivery O2 Flow Rate FiO2 06/14/17 16:11 97.8 77 18 125/72 91 Room Air 97.9 06/14/17 17:41 21 Sp02 EP Interpretation: reviewed, normal General Appearance: normal inspection, alert, Chronically Ill Head: atraumatic ENT: normal ENT inspection, hearing grossly normal, normal voice Neck: normal inspection, full range of motion, supple, no bony tend Respiratory: normal inspection, no retraction, speaking full sentences, wheezing Cardiovascular #1: regular rate, rhythm, edema - bilateral lower extremtiy Gastrointestinal: normal inspection, normal bowel sounds, non tender, soft, no guarding, no hernia Genitourinary: no CVA tenderness Musculoskeletal: normal inspection, back normal, normal range of motion Neurologic: normal inspection, alert, responsive, speech normal Psychiatric: normal inspection, judgement/insight normal, mood/affect normal Skin: normal inspection, normal color, no rash Medical Decision Making Diagnostic Impression: Primary Impression: Rheumatoid arthritis Additional Impression: Asthma exacerbation ER Course Patient presented for shortness of breath. Differential included but was not limited to anemia, pneumonia, pneumothorax, myocardial infarction, pericardial effusion, congestive heart failure, acidosis. Because of complexity of patient' s case laboratory testing and imaging studies were ordered. A studies showed adequate hemoglobin. Patient was noted to have a normal white blood count. Chest x-ray one view interpreted by me showed cardiomegaly with vascular congestion. Patient was given IV steroids as well as IV Lasix. She was noted to have some improvement in her symptoms. She is noted to have continued wheezing. Dr. Robin Neff was contacted for inpatient management. Labs Test 06/14/17 16:50 06/14/17 17:20 06/14/17 17:21 06/14/17 19:18 White Blood Count 8.3 K/UL (4.8-10.8) Red Blood Count 3.94 M/UL (4.20-5.40) Hemoglobin 11.3 G/DL (12.0-16.0) Hematocrit 34.5 % (37.0-47.0) Mean Corpuscular Volume 88 FL (80-99) Mean Corpuscular Hemoglobin 28.8 PG (27.0-31.0) Mean Corpuscular Hemoglobin Concent 32.8 G/DL (32.0-36.0) Red Cell Distribution Width 15.2 % (11.6-14.8) Platelet Count 214 K/UL (150-450) Mean Platelet Volume 7.1 FL (6.5-10.1) Neutrophils (%) (Auto) 61.4 % (45.0-75.0) Lymphocytes (%) (Auto) 25.7 % (20.0-45.0) Monocytes (%) (Auto) 11.1 % (1.0-10.0) Eosinophils (%) (Auto) 1.2 % (0.0-3.0) Basophils (%) (Auto) 0.7 % (0.0-2.0) Sodium Level 139 MMOL/L (136-145) Potassium Level 4.8 MMOL/L (3.5-5.1) Chloride Level 105 MMOL/L (98-107) Carbon Dioxide Level 27 MMOL/L (21-32) Anion Gap 7 mmol/L (5-15) Blood Urea Nitrogen 17 mg/dL (7-18) Creatinine 0.7 MG/DL (0.55-1.30) Estimat Glomerular Filtration Rate mL/min (>60) Glucose Level 148 MG/DL (74-106) Calcium Level 9.2 MG/DL (8.5-10.1) Total Bilirubin 0.1 MG/DL (0.2-1.0) Aspartate Amino Transf (AST/SGOT) 20 U/L (15-37) Alanine Aminotransferase (ALT/SGPT) 13 U/L (12-78) Alkaline Phosphatase 106 U/L (46-116) Total Creatine Kinase 47 U/L (26-308) Creatine Kinase MB < 0.5 NG/ML (0.0-3.6) Creatine Kinase MB Relative Index 1.0 Troponin I 0.000 ng/mL (0.000-0.056) Pro-B-Type Natriuretic Peptide 136 pg/mL (0-125) Total Protein 8.2 G/DL (6.4-8.2) Albumin 3.1 G/DL (3.4-5.0) Globulin 5.1 g/dL Albumin/Globulin Ratio 0.6 (1.0-2.7) Lactic Acid Level 1.90 mmol/L (0.66-2.22) Arterial Blood pH 7.350 (7.350-7.450) Arterial Blood Partial Pressure CO2 46.8 mmHg (35.0-45.0) Arterial Blood Partial Pressure O2 70.9 mmHg (75.0-100.0) Arterial Blood HCO3 25.3 mmol/L (22.0-26.0) Arterial Blood Oxygen Saturation 93.5 % (92.0-98.0) Arterial Blood Base Excess -0.6 Polo Test Positive Urine Color Pale yellow Urine Appearance Clear Urine pH 5 (4.5-8.0) Urine Specific [place] 1.005 (1.005-1.035) Urine Protein Negative (NEGATIVE) Urine Glucose (UA) Negative (NEGATIVE) Urine Ketones Negative (NEGATIVE) Urine Occult Blood Negative (NEGATIVE) Urine Nitrite Negative (NEGATIVE) Urine Bilirubin Negative (NEGATIVE) Urine Urobilinogen Normal MG/DL (0.0-1.0) Urine Leukocyte Esterase Negative (NEGATIVE) EKG Diagnostic Results Rate: normal Rhythm: NSR ST Segments: no acute changes Rhythm Strip Diag. Results EP Interpretation: yes Rhythm: NSR, no PVC's, no ectopy Last Vital Signs Date Time Temp Pulse Resp B/P (MAP) Pulse Ox O2 Delivery O2 Flow Rate FiO2 06/14/17 18:17 78 20 99 Room Air 21 06/14/17 16:34 98.2 100/77 98.2 Status: improved Disposition: ADMITTED INPATIENT Condition: Stable Referrals: NOT CHOSEN IPA/,REFERRING (PCP) Conor Gray Jun 14, 2017 21:09
[2017-06-14] MEDS ORDERED: Nitroglycerin Subl 0.4mg tab SL PRN (21:15)
[2017-06-14] MEDS ORDERED: Morphine Sulfate 4mg/ml Inj IVP PRN (21:15)
[2017-06-14 22:10] VITALS: BP 160/90
[2017-06-14 22:45] VITALS: BP 136/84
[2017-06-14] MEDS: LORazepam Inj 2mg/ml 1ml IV PRN (23:06)
[2017-06-15] MEDS: Solu-MEDROL 125mg Inj IV SCH ×5 (00:20→23:43)
[2017-06-15] MEDS: Albuterol/Ipratropium 3ml neb HHN PRN ×2 (03:26→07:53)
[2017-06-15 04:00] VITALS: BP 124/80
[2017-06-15] MEDS: NovoLOG Insulin Flexpen SUBQ SCH ×4 (06:18→21:14)
[2017-06-15 08:00] VITALS: BP 148/72
[2017-06-15 09:23] LABS: HEMATOCRIT 34.4 % (37.0-47.0); HEMOGLOBIN 10.9 G/DL (12.0-16.0); MEAN CORPUSCULAR VOLUME 89 FL (80-99); PLATELET COUNT 218 K/UL (150-450); RED BLOOD COUNT 3.85 M/UL (4.20-5.40); RED CELL DISTRIBUTION WIDTH 15.7 % (11.6-14.8); WHITE BLOOD COUNT 9.7 K/UL (4.8-10.8)
[2017-06-15 09:52] LABS: ALANINE AMINOTRANSFERASE 15 U/L (12-78); ALBUMIN/GLOBULIN RATIO 0.6 (1.0-2.7); ALKALINE PHOSPHATASE 109 U/L (46-116); ANION GAP 10 mmol/L (5-15); ASPARTATE AMINO TRANSFERASE 17 U/L (15-37); BILIRUBIN,TOTAL 0.1 MG/DL (0.2-1.0); BLOOD UREA NITROGEN 24 mg/dL (7-18); CALCIUM 8.8 MG/DL (8.5-10.1); CARBON DIOXIDE 26 MMOL/L (21-32); CHLORIDE 100 MMOL/L (98-107); SODIUM 136 MMOL/L (136-145)
[2017-06-15] MEDS ORDERED: Pneumococcal Vaccine 25mcg/0.5ml IM ONE (10:00)
[2017-06-15] MEDS: Theophylline ER 100mg ORAL SCH ×2 (10:00→21:14)
[2017-06-15] MEDS: Heparin 5000 units/ml inj SUBQ SCH ×2 (10:02→21:13)
[2017-06-15] MEDS: Promethazine/Codeine 5ml UD ORAL PRN (10:02)
[2017-06-15] MEDS: Levothyroxine 125mcg tab ORAL SCH (10:04)
--- NOTE | 2017-06-15 11:15 | History and Physical Report ---
DATE OF ADMISSION: 06/14/2017 TIME SEEN: At 8 a.m. CONSULTANTS: Fabian Paulino M.D. CHIEF COMPLAINT: Shortness of breath, asthma exacerbation. BRIEF HISTORY: This is a 71-year-old female who lives at home and presents with 1-2-day increased shortness of breath and coughing, came to [place], diagnosed of asthma exacerbation, shortness of breath, and wheezing, and admitted to telemetry for further care. Currently, slight short of breath in bed, coughing, no complaint otherwise. REVIEW OF SYSTEMS: No chest pain. Slight short of breath. No nausea, vomiting, or diarrhea. PAST MEDICAL HISTORY: Includes asthma, rheumatoid arthritis, diabetes, hypertension, arthritis. PAST SURGICAL HISTORY: Knee surgery. ALLERGIES: Denies. MEDICATIONS: Include Norvasc, Lasix, Synthroid, Pravachol, heparin, William-Dur, methylprednisolone, albuterol, Tylenol, morphine, Zofran, temazepam, nitroglycerin, Phenergan With Codeine, furosemide, albuterol. SOCIAL HISTORY: Positive smoking. No alcohol. No intravenous drug abuse. FAMILY HISTORY: Noncontributory. PHYSICAL EXAMINATION: GENERAL: Calm in bed, slight short of breath, no complaint. VITAL SIGNS: Show temperature 97, pulse 85, respiration 18, blood pressure 124/80. CARDIOVASCULAR: No murmur. LUNGS: Poor exchange. Slight wheeze. ABDOMEN: Bowel sounds positive. Nontender. Nondistended. EXTREMITIES: No cyanosis, clubbing, or edema. NEUROLOGIC: The patient moves all extremities, slightly weak. LABORATORY DATA: Labs at this time show hemoglobin 11.3, otherwise CBC is normal. BMP shows glucose 148, otherwise BMP is normal. BNP is 136. Albumin 3.1. Urinalysis is negative. ASSESSMENT: Asthma exacerbation, shortness of breath, cough, wheeze, anemia, rheumatoid arthritis, diabetes, hypertension. PLAN: OT, PT, dietary followup. O2 and pulmonary treatment as needed. Taper all steroids. Pulmonary followup. Resume home medications. Blood pressure and blood sugar control. Robin Neff D.O. DR: Yuliet JOB#: [id number] CC:
--- NOTE | 2017-06-15 11:44 | Diagnostic Imaging Report ---
Indication: Dyspnea Comparison: 10/03/2015 A single view chest radiograph was obtained. Findings: Mild interstitial edema vascular prominence with cardiomegaly demonstrated. Bones are osteopenic. IMPRESSION: Mild CHF/interstitial edema
--- NOTE | 2017-06-15 11:53 | Consultation ---
History of Present Illness General Date patient seen: Jun 15, 2017 Chief Complaint: Upper Respiratory Illness Present Illness HPI 71-year-old female with hx of DM, HTN, morbid obesity presented to ER with CC of shortness of breath with gradual onset of symptoms and productive cough. Patient had been treated with antibiotics for pneumonia. She had been noted to have been prescribed inhaler but was unsure how to use them. Pt is admitted to telemetry for possible acute bronchitis and CHF. Allergies: Coded Allergies: NO KNOWN ALLERGIES (Unverified Allergy, Unknown, 03/07/15) NO KNOWN DRUG ALLERGIES (Unverified Allergy, Unknown, 03/19/17) Medication History Scheduled Amlodipine Besylate (Norvasc), 5 MG ORAL DAILY, (Reported) Celecoxib* (Celebrex*), 400 MG ORAL DAILY, (Reported) Enalapril Maleate* (Enalapril Maleate*), 10 MG ORAL DAILY, (Reported) Esomeprazole Magnesium (Nexium), 40 MG ORAL DAILY, (Reported) Levothyroxine Sodium* (Synthroid*), 125 MCG ORAL DAILY, (Reported) Metformin Hcl* (Metformin Hcl*), 500 MG ORAL TWICE A DAY, (Reported) Pravastatin Sod (Pravastatin Sod), 80 MG ORAL DAILY, (Reported) Discontinued Medications Albuterol Sulfate* (Albuterol Sulfate Mdi*), 2 PUFF INH Q6H Discontinued Reason: Pt stopped taking med Amlodipine Besylate (Norvasc), 5 MG ORAL BID, (Reported) Discontinued Reason: Medication dose changed Celecoxib* (Celebrex*), 200 MG ORAL DAILY, (Reported) Discontinued Reason: Medication dose changed Clonazepam (Clonazepam), 2 MG PO QHS, (Reported) Discontinued Reason: Pt stopped taking med Enalapril Maleate* (Enalapril Maleate*), 20 MG ORAL DAILY, (Reported) Discontinued Reason: Medication dose changed Enalapril Maleate* (Enalapril Maleate*), 20 MG ORAL DAILY, (Reported) Discontinued Reason: Medication dose changed Esomeprazole Magnesium (Nexium), 40 MG ORAL DAILY, (Reported) Discontinued Reason: Pt stopped taking med Etanercept (Enbrel), 25 MG SUBQ 3XW, (Reported) Discontinued Reason: Pt stopped taking med Guaifenesin/Codeine Phosphate (Cheratussin Ac Syrup), 5 ML PO BID Discontinued Reason: Pt stopped taking med Ipratropium [place] (Atrovent Hfa), 12.9 GM IH BID Discontinued Reason: Pt stopped taking med Methotrexate Sodium* (Methotrexate*), 20 MG PO QWEEK, (Reported) Discontinued Reason: Pt stopped taking med Tramadol Hcl* (Ultram*), 50 MG ORAL Q6H PRN for For Pain Discontinued Reason: Pt stopped taking med Patient History Healthcare decision maker Resuscitation status Full Code Advanced Directive on File Past Medical/Surgical History Past Medical/Surgical History: (1) Diabetes mellitus (2) Hypothyroidism (3) Hypertension (4) Rheumatoid arthritis Review of Systems Respiratory: Reports: cough, shortness of breath All Other Systems: negative except mentioned in HPI Physical Exam General Appearance: WD/WN Lines, tubes and drains: peripheral HEENT: normocephalic Neck: non-tender, normal alignment Respiratory/Chest: chest wall non-tender, rhonchi - left, rhonchi - right Breasts: no masses Cardiovascular/Chest: normal peripheral pulses, normal rate Abdomen: normal bowel sounds Last 24 Hour Vital Signs Date Time Temp Pulse Resp B/P (MAP) Pulse Ox O2 Delivery O2 Flow Rate FiO2 06/15/17 09:59 148/72 06/15/17 09:58 85 148/72 06/15/17 08:01 85 18 98 Nasal Cannula 2.0 28 06/15/17 08:00 97.2 87 22 148/72 93 Room Air 97.2 06/15/17 07:54 75 18 Room Air 06/15/17 07:54 75 18 95 Room Air 21 06/15/17 04:00 97.1 79 20 124/80 97 Room Air 97.1 06/15/17 04:00 93 06/15/17 03:34 90 20 97 Room Air 21 06/15/17 03:26 21 06/15/17 03:25 90 20 97 Room Air 21 06/15/17 00:00 90 06/14/17 22:45 97.3 87 20 136/84 97 Room Air 97.3 06/14/17 22:43 97.8 82 20 160/90 98 Room Air 97.8 06/14/17 22:10 97.8 82 20 160/90 98 Nasal Cannula 2.0 97.8 06/14/17 19:30 78 18 Nasal Cannula 2.0 06/14/17 19:30 78 18 158/96 98 Nasal Cannula 2.0 06/14/17 19:00 71 18 Room Air 06/14/17 18:17 78 20 99 Room Air 21 06/14/17 17:41 87 16 96 Room Air 21 06/14/17 16:35 72 16 Room Air 06/14/17 16:34 98.2 72 16 100/77 97 Room Air 98.2 06/14/17 16:11 97.8 77 18 125/72 91 Room Air 97.9 Intake and Output 06/14/17 06/15/17 19:00 07:00 Intake Total 1200 ml Balance 1200 ml Intake Oral 1200 ml # Voids 3 Laboratory Tests Test 06/14/17 16:50 06/14/17 17:20 06/14/17 17:21 06/14/17 19:18 White Blood Count 8.3 K/UL (4.8-10.8) Red Blood Count 3.94 M/UL (4.20-5.40) L Hemoglobin 11.3 G/DL (12.0-16.0) L Hematocrit 34.5 % (37.0-47.0) L Mean Corpuscular Volume 88 FL (80-99) Mean Corpuscular Hemoglobin 28.8 PG (27.0-31.0) Mean Corpuscular Hemoglobin Concent 32.8 G/DL (32.0-36.0) Red Cell Distribution Width 15.2 % (11.6-14.8) H Platelet Count 214 K/UL (150-450) Mean Platelet Volume 7.1 FL (6.5-10.1) Neutrophils (%) (Auto) 61.4 % (45.0-75.0) Lymphocytes (%) (Auto) 25.7 % (20.0-45.0) Monocytes (%) (Auto) 11.1 % (1.0-10.0) H Eosinophils (%) (Auto) 1.2 % (0.0-3.0) Basophils (%) (Auto) 0.7 % (0.0-2.0) Sodium Level 139 MMOL/L (136-145) Potassium Level 4.8 MMOL/L (3.5-5.1) Chloride Level 105 MMOL/L (98-107) Carbon Dioxide Level 27 MMOL/L (21-32) Anion Gap 7 mmol/L (5-15) Blood Urea Nitrogen 17 mg/dL (7-18) Creatinine 0.7 MG/DL (0.55-1.30) Estimat Glomerular Filtration Rate mL/min (>60) Glucose Level 148 MG/DL (74-106) H Calcium Level 9.2 MG/DL (8.5-10.1) Total Bilirubin 0.1 MG/DL (0.2-1.0) L Aspartate Amino Transf (AST/SGOT) 20 U/L (15-37) Alanine Aminotransferase (ALT/SGPT) 13 U/L (12-78) Alkaline Phosphatase 106 U/L (46-116) Total Creatine Kinase 47 U/L (26-308) Creatine Kinase MB < 0.5 NG/ML (0.0-3.6) Creatine Kinase MB Relative Index 1.0 Troponin I 0.000 ng/mL (0.000-0.056) Pro-B-Type Natriuretic Peptide 136 pg/mL (0-125) H Total Protein 8.2 G/DL (6.4-8.2) Albumin 3.1 G/DL (3.4-5.0) L Globulin 5.1 g/dL Albumin/Globulin Ratio 0.6 (1.0-2.7) L Lactic Acid Level 1.90 mmol/L (0.66-2.22) Arterial Blood pH 7.350 (7.350-7.450) Arterial Blood Partial Pressure CO2 46.8 mmHg (35.0-45.0) H Arterial Blood Partial Pressure O2 70.9 mmHg (75.0-100.0) L Arterial Blood HCO3 25.3 mmol/L (22.0-26.0) Arterial Blood Oxygen Saturation 93.5 % (92.0-98.0) Arterial Blood Base Excess -0.6 [place]o Test Positive Urine Color Pale yellow Urine Appearance Clear Urine pH 5 (4.5-8.0) Urine Specific [place] 1.005 (1.005-1.035) Urine Protein Negative (NEGATIVE) Urine Glucose (UA) Negative (NEGATIVE) Urine Ketones Negative (NEGATIVE) Urine Occult Blood Negative (NEGATIVE) Urine Nitrite Negative (NEGATIVE) Urine Bilirubin Negative (NEGATIVE) Urine Urobilinogen Normal MG/DL (0.0-1.0) Urine Leukocyte Esterase Negative (NEGATIVE) Test 06/15/17 08:30 White Blood Count 9.7 K/UL (4.8-10.8) Red Blood Count 3.85 M/UL (4.20-5.40) L Hemoglobin 10.9 G/DL (12.0-16.0) L Hematocrit 34.4 % (37.0-47.0) L Mean Corpuscular Volume 89 FL (80-99) Mean Corpuscular Hemoglobin 28.2 PG (27.0-31.0) Mean Corpuscular Hemoglobin Concent 31.6 G/DL (32.0-36.0) L Red Cell Distribution Width 15.7 % (11.6-14.8) H Platelet Count 218 K/UL (150-450) Mean Platelet Volume 6.8 FL (6.5-10.1) Neutrophils (%) (Auto) % (45.0-75.0) Lymphocytes (%) (Auto) % (20.0-45.0) Monocytes (%) (Auto) % (1.0-10.0) Eosinophils (%) (Auto) % (0.0-3.0) Basophils (%) (Auto) % (0.0-2.0) Differential Total Cells Counted 100 Neutrophils % (Manual) 84 % (45-75) H Lymphocytes % (Manual) 14 % (20-45) L Monocytes % (Manual) 2 % (1-10) Eosinophils % (Manual) 0 % (0-3) Basophils % (Manual) 0 % (0-2) Band Neutrophils 0 % (0-8) Platelet Estimate Adequate Platelet Morphology Normal Hypochromasia 1+ Anisocytosis 1+ Sodium Level 136 MMOL/L (136-145) Potassium Level 4.0 MMOL/L (3.5-5.1) Chloride Level 100 MMOL/L (98-107) Carbon Dioxide Level 26 MMOL/L (21-32) Anion Gap 10 mmol/L (5-15) Blood Urea Nitrogen 24 mg/dL (7-18) H Creatinine 1.0 MG/DL (0.55-1.30) Estimat Glomerular Filtration Rate mL/min (>60) Glucose Level 422 MG/DL (74-106) #H Calcium Level 8.8 MG/DL (8.5-10.1) Total Bilirubin 0.1 MG/DL (0.2-1.0) L Aspartate Amino Transf (AST/SGOT) 17 U/L (15-37) Alanine Aminotransferase (ALT/SGPT) 15 U/L (12-78) Alkaline Phosphatase 109 U/L (46-116) Total Protein 8.2 G/DL (6.4-8.2) Albumin 3.0 G/DL (3.4-5.0) L Globulin 5.2 g/dL Albumin/Globulin Ratio 0.6 (1.0-2.7) L Height (Feet): 5 Height (Inches): 4.00 Weight (Pounds): 200 Medications Current Medications Medications (Trade) Dose Ordered Sig/Harsh Route PRN Reason Start Time Stop Time Status Last Admin Dose Admin Acetaminophen (Tylenol) 650 mg Q4H PRN ORAL fever 06/14/17 21:15 07/14/17 21:14 Albuterol/ Ipratropium (Albuterol/ Ipratropium) 3 ml EVERY 4 HOURS PRN HHN dyspnea 06/14/17 21:15 06/19/17 21:14 06/15/17 07:53 Amlodipine Besylate (Norvasc) 5 mg DAILY ORAL 06/15/17 09:00 07/15/17 08:59 06/15/17 09:58 Clonidine HCl (Catapres Tab) 0.1 mg EVERY 4 HOURS PRN ORAL sbp more than 160 06/14/17 21:15 07/14/17 21:14 Dextrose (Dextrose 50%) 25 ml STAT PRN IV BS 60-69mg/dl 06/14/17 21:15 07/14/17 21:14 Dextrose (Dextrose 50%) 50 ml STAT PRN IV BS less than 60mg/dl 06/14/17 21:15 07/14/17 21:14 Enalapril Maleate (Vasotec) 10 mg DAILY ORAL 06/15/17 09:00 07/15/17 08:59 06/15/17 09:59 Heparin Sodium (Porcine) (Heparin 5000 units/ml) 5,000 units EVERY 12 HOURS SUBQ 06/15/17 09:00 07/15/17 08:59 06/15/17 10:02 Insulin Aspart (NovoLOG) BEFORE MEALS AND HS SUBQ 06/15/17 06:30 07/15/17 06:29 06/15/17 06:18 Levothyroxine Sodium (Synthroid) 125 mcg DAILY ORAL 06/15/17 09:00 07/15/17 08:59 06/15/17 10:04 Lorazepam (Ativan 2mg/ml 1ml) 0.5 mg Q4H PRN IV For Anxiety 06/14/17 21:15 06/21/17 21:14 06/14/17 23:06 Methylprednisolone Sodium Succinate (Solu-MEDROL) 60 mg EVERY 6 HOURS IV 06/15/17 00:00 07/15/17 00:00 06/15/17 06:17 Morphine Sulfate (Morphine Sulfate) 2 mg EVERY 4 HOURS PRN IVP severe pain 7-10 06/14/17 21:15 06/21/17 21:14 Nitroglycerin (Ntg) 0.4 mg Q5M X 3 DOSES PRN SL Prn Chest Pain 06/14/17 21:15 07/14/17 21:14 Ondansetron HCl (Zofran) 4 mg Q6H PRN IVP Nausea & Vomiting 06/14/17 21:15 07/14/17 21:14 Pravastatin Sodium (Pravachol) 80 mg DAILY ORAL 06/15/17 09:00 07/15/17 08:59 06/15/17 10:00 Promethazine HCl/ Codeine (Phenergan with Codeine) 5 ml EVERY 6 HOURS PRN ORAL cough 06/14/17 21:15 07/14/17 21:14 06/15/17 10:02 Temazepam (Restoril) 15 mg HSPRN PRN ORAL Insomnia 06/14/17 21:15 06/21/17 21:14 06/15/17 00:27 Theophylline (William-Dur) 100 mg EVERY 12 HOURS ORAL 06/15/17 09:00 07/15/17 08:59 06/15/17 10:00 Assessment/Plan Problem List: (1) Asthma exacerbation ICD Codes: J45.901 - Unspecified asthma with (acute) exacerbation SNOMED: 918985604 (2) Rheumatoid arthritis ICD Codes: M06.9 - Rheumatoid arthritis, unspecified SNOMED: 96451649 (3) Diabetes mellitus ICD Codes: E11.9 - Type 2 diabetes mellitus without complications SNOMED: 80027659 (4) Hypothyroidism ICD Codes: E03.9 - Hypothyroidism, unspecified SNOMED: 33023551 (5) Hypertension ICD Codes: I10 - Essential (primary) hypertension SNOMED: 52840985 Assessment/Plan respiratory treatment iv abx and steroids check sputum antitussive echo, venous doppler of legs sliding scale diabetic diet dvt prophylaxis Fabian Paulino MD Jun 15, 2017 11:53
[2017-06-15 12:00] VITALS: BP 154/75
--- NOTE | 2017-06-15 15:22 | Consultation ---
Consult Note Consult Note ID DIC # [id number] CRP Influenza Sc Anil Delgado MD Jun 15, 2017 15:22
[2017-06-15 16:00] VITALS: BP 141/80
[2017-06-15] MEDS: LORazepam Inj 2mg/ml 1ml IV PRN (16:27)
--- NOTE | 2017-06-15 17:17 | Cardiology Report ---
APPROVED REPORT EXAM: Two-dimensional and M-mode echocardiogram with Doppler and color Doppler. INDICATION LV FUNCTION M-Mode DIMENSIONS IVSd1.1 (0.7-1.1cm)Left Atrium (MM)2.8 (1.6-4.0cm) LVDd4.5 (3.5-5.6cm)Aortic Root4.0 (2.0-3.7cm) PWd1.8 (0.7-1.1cm)Aortic Cusp Exc.1.8 (1.5-2.0cm) IVSs1.9 cm LVDs3.0 (2.5-4.0cm) PWs1.8 cm Technically difficult study due to poor acoustical windows. Normal left ventricular chamber size, systolic function and wall motion to extent visualized. Left ventricular ejection fraction estimated to be 60-65 %. No evidence of left ventricular hypertrophy. No evidence of pericardial effusion Right atrial size at upper limits of normal. Right ventricular chamber sizes is within normal limits. Focal aortic valve sclerosis with adequate cusp excursion. Moderately Thickened mitral valve leaflets with normal excursion. Moderately Mitral annulus and aortic root calcification. Pulmonic valve not well visualized. Normal tricuspid valve structure. A color flow and spectral Doppler study was performed and revealed: No aortic regurgitation. Trace mitral regurgitation. Mitral diastolic velocities suggest reduced left ventricular relaxation c/w mild LV diastolic dysfunction (Grade I ) Trace tricuspid regurgitation. Tricuspid systolic velocities suggests peak right ventricular systolic pressure of 17 mmHg, No Pulmonic regurgitation present.
[2017-06-15 20:00] VITALS: BP 134/69
--- NOTE | 2017-06-15 20:15 | Consultation ---
DATE OF CONSULTATION: 06/15/2017 INFECTIOUS DISEASES CONSULTATION CONSULTING PHYSICIAN: Anil Delgado M.D. REFERRING PHYSICIAN: Robin Neff D.O. REASON FOR CONSULTATION: Evaluation of the patient for pneumonia and antibiotic management. HISTORY OF PRESENT ILLNESS: The patient is a 71-year-old female with multiple medical problems, who was admitted to this medical center for cough that initially responded to course of Zithromax, but then cough started to get worsened. The patient was admitted here for further workups. Infectious Diseases consultation has been requested for further evaluation of the patient and antibiotic management. The patient mentioned to have cold few days prior. Also, in the family symptoms were going around. PAST MEDICAL HISTORY: 1. Rheumatic arthritis. 2. History of hypothyroidism. 3. Hyperlipidemia. 4. Hypertension. 5. History of cholecystectomy. 6. Diabetes. 7. Hypothyroidism. 8. Anxiety. 9. Anemia. MEDICATIONS: She is on IV Solu-Medrol. No antibiotics. ALLERGIES: No known drug allergies. SOCIAL HISTORY: No history of alcohol or drug abuse. The patient is a smoker. FAMILY HISTORY: Not contributing. PHYSICAL EXAMINATION: VITAL SIGNS: Temperature 97.5 degrees, blood pressure 154/75, pulse 86, and respiratory rate 18. HEENT: No pale conjunctivae. No icterus. NECK: No lymphadenopathy. CHEST: Clear. HEART: S1 and S2. ABDOMEN: Soft, nontender. EXTREMITIES: No cyanosis at this time. NEUROLOGIC: Awake and alert. LABORATORY DATA: White blood cells 9.7, hemoglobin 10.9, and platelets 218,000. BUN 24 and creatinine 1. Chest x-ray, mild interstitial edema, CHF. BNP 136. Blood culture pending. Sputum culture pending. ASSESSMENT: The patient is a 71-year-old female with: 1. Probable community-associated pneumonia. 2. Shortness of breath probably due to congestive heart failure. 3. Afebrile. 4. Normal white blood cells. PLAN: 1. We will start the patient on Levaquin. 2. We will continue the patient on Solu-Medrol. 3. Monitor cultures (blood, sputum). 4. We will check CRP. 5. Monitor chest x-ray. 6. We will follow Pulmonary recommendations. 7. Based on the patient's course and laboratories, we will do further recommendation. Thank you, Dr. Robin Neff and Dr. Paulino, for allowing me to participate in the care of this patient. I will follow the patient with you during this hospitalization. Anil Delgado M.D. DR: Markus JOB#: [id number] CC:
[2017-06-16] VITALS: BP 124/77
[2017-06-16] MEDS: Solu-MEDROL 125mg Inj IV SCH ×2 (06:12→12:22)
[2017-06-16] MEDS: NovoLOG Insulin Flexpen SUBQ SCH ×4 (06:13→20:32)
[2017-06-16 08:00] VITALS: BP 139/80
[2017-06-16] MEDS: Theophylline ER 100mg ORAL SCH ×2 (08:47→20:29)
[2017-06-16] MEDS: Levothyroxine 125mcg tab ORAL SCH (08:47)
[2017-06-16] MEDS: Heparin 5000 units/ml inj SUBQ SCH ×2 (09:00→20:31)
[2017-06-16 09:01] LABS: HEMATOCRIT 34.5 % (37.0-47.0); HEMOGLOBIN 10.7 G/DL (12.0-16.0); MEAN CORPUSCULAR VOLUME 89 FL (80-99); PLATELET COUNT 231 K/UL (150-450); RED BLOOD COUNT 3.88 M/UL (4.20-5.40); RED CELL DISTRIBUTION WIDTH 15.3 % (11.6-14.8); WHITE BLOOD COUNT 11.9 K/UL (4.8-10.8)
[2017-06-16 09:07] LABS: ANION GAP 5 mmol/L (5-15); BLOOD UREA NITROGEN 27 mg/dL (7-18); CALCIUM 8.2 MG/DL (8.5-10.1); CARBON DIOXIDE 29 MMOL/L (21-32); CHLORIDE 104 MMOL/L (98-107); CREATININE 0.8 MG/DL (0.55-1.30); POTASSIUM 3.9 MMOL/L (3.5-5.1); SODIUM 138 MMOL/L (136-145)
[2017-06-16 12:00] VITALS: BP 129/69
--- NOTE | 2017-06-16 12:44 | Pulmonology Progress Note ---
Assessment/Plan Problems: (1) Asthma exacerbation (2) Rheumatoid arthritis (3) Diabetes mellitus (4) Hypothyroidism (5) Hypertension Assessment/Plan improving respiratory treatment check sputum check echo taper steroids to QD dvt porphylaxis telemetry reviewed Subjective Interval Events: less short of breath, less couhg Constitutional: Reports: no symptoms Allergies: Coded Allergies: NO KNOWN ALLERGIES (Unverified Allergy, Unknown, 03/07/15) NO KNOWN DRUG ALLERGIES (Unverified Allergy, Unknown, 03/19/17) Objective Last 24 Hour Vital Signs Date Time Temp Pulse Resp B/P (MAP) Pulse Ox O2 Delivery O2 Flow Rate FiO2 06/16/17 10:32 91 18 Room Air 06/16/17 08:58 139/80 06/16/17 08:58 92 139/80 06/16/17 08:00 95 06/16/17 08:00 97.7 92 18 139/80 94 Room Air 97.7 06/16/17 03:49 79 06/16/17 00:07 89 06/16/17 00:00 98.0 69 20 124/77 91 Room Air 98.0 06/15/17 20:32 70 18 Room Air 06/15/17 20:00 87 06/15/17 20:00 98.6 94 22 134/69 91 Room Air 98.6 06/15/17 16:27 92 06/15/17 16:00 97.3 103 22 141/80 95 Room Air 97.3 Intake and Output 06/15/17 06/16/17 19:00 07:00 Intake Total 360 ml 120 ml Balance 360 ml 120 ml Intake Oral 360 ml 120 ml # Voids 3 2 # Bowel Movements 1 1 General Appearance: WD/WN HEENT: normocephalic, atraumatic Respiratory/Chest: chest wall non-tender, lungs clear Breasts: no masses Cardiovascular: normal peripheral pulses, normal rate Abdomen: normal bowel sounds, soft, non tender Extremities: no cyanosis Skin: no lesions 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 Microbiology Date/Time Source Procedure Growth Status 06/14/17 17:35 Blood Blood Culture - Preliminary Resulted 06/14/17 17:20 Blood Blood Culture - Preliminary Resulted 06/15/17 15:30 Nasopharynx Influenza Types A,B Antigen (ANUJA) - Final Complete Laboratory Tests 06/16/17 07:50: White Blood Count 11.9H, Red Blood Count 3.88L, Hemoglobin 10.7L, Hematocrit 34.5L, Mean Corpuscular Volume 89, Mean Corpuscular Hemoglobin 27.6, Mean Corpuscular Hemoglobin Concent 31.0L, Red Cell Distribution Width 15.3H, Platelet Count 231, Mean Platelet Volume 7.2, Neutrophils (%) (Auto) , Lymphocytes (%) (Auto) , Monocytes (%) (Auto) , Eosinophils (%) (Auto) , Basophils (%) (Auto) , Differential Total Cells Counted 100, Neutrophils % ( Manual) 92H, Lymphocytes % (Manual) 5L, Monocytes % (Manual) 3, Eosinophils % ( Manual) 0, Basophils % (Manual) 0, Band Neutrophils 0, Platelet Estimate Adequate, Platelet Morphology Normal, Anisocytosis 1+, Microcytosis 1+, Sodium Level 138, Potassium Level 3.9, Chloride Level 104, Carbon Dioxide Level 29, Anion Gap 5, Blood Urea Nitrogen 27H, Creatinine 0.8, Estimat Glomerular Filtration Rate , Glucose Level 274#H, Calcium Level 8.2L Current Medications Medications (Trade) Dose Ordered Sig/Harsh Route PRN Reason Start Time Stop Time Status Last Admin Dose Admin Acetaminophen (Tylenol) 650 mg Q4H PRN ORAL fever 06/14/17 21:15 07/14/17 21:14 Albuterol/ Ipratropium (Albuterol/ Ipratropium) 3 ml EVERY 4 HOURS PRN HHN dyspnea 06/14/17 21:15 06/19/17 21:14 06/15/17 07:53 Amlodipine Besylate (Norvasc) 5 mg DAILY ORAL 06/15/17 09:00 07/15/17 08:59 06/16/17 08:58 Clonidine HCl (Catapres Tab) 0.1 mg EVERY 4 HOURS PRN ORAL sbp more than 160 06/14/17 21:15 07/14/17 21:14 Dextrose (Dextrose 50%) 25 ml STAT PRN IV BS 60-69mg/dl 06/14/17 21:15 07/14/17 21:14 Dextrose (Dextrose 50%) 50 ml STAT PRN IV BS less than 60mg/dl 06/14/17 21:15 07/14/17 21:14 Enalapril Maleate (Vasotec) 10 mg DAILY ORAL 06/15/17 09:00 07/15/17 08:59 06/16/17 08:58 Heparin Sodium (Porcine) (Heparin 5000 units/ml) 5,000 units EVERY 12 HOURS SUBQ 06/15/17 09:00 07/15/17 08:59 06/16/17 09:00 Insulin Aspart (NovoLOG) BEFORE MEALS AND HS SUBQ 06/15/17 06:30 07/15/17 06:29 06/16/17 12:23 Levofloxacin 150 ml @ 100 mls/hr Q24H IVPB 06/15/17 14:30 06/22/17 14:29 06/15/17 17:06 Levothyroxine Sodium (Synthroid) 125 mcg DAILY ORAL 06/15/17 09:00 07/15/17 08:59 06/16/17 08:47 Lorazepam (Ativan 2mg/ml 1ml) 0.5 mg Q4H PRN IV For Anxiety 06/14/17 21:15 06/21/17 21:14 06/15/17 16:27 Methylprednisolone Sodium Succinate (Solu-MEDROL) 60 mg EVERY 6 HOURS IV 06/15/17 00:00 07/15/17 00:00 06/16/17 12:22 Morphine Sulfate (Morphine Sulfate) 2 mg EVERY 4 HOURS PRN IVP severe pain 7-10 06/14/17 21:15 06/21/17 21:14 Nitroglycerin (Ntg) 0.4 mg Q5M X 3 DOSES PRN SL Prn Chest Pain 06/14/17 21:15 07/14/17 21:14 Ondansetron HCl (Zofran) 4 mg Q6H PRN IVP Nausea & Vomiting 06/14/17 21:15 07/14/17 21:14 Pravastatin Sodium (Pravachol) 80 mg DAILY ORAL 06/15/17 09:00 07/15/17 08:59 06/16/17 08:47 Promethazine HCl/ Codeine (Phenergan with Codeine) 5 ml EVERY 6 HOURS PRN ORAL cough 06/14/17 21:15 07/14/17 21:14 06/15/17 10:02 Temazepam (Restoril) 15 mg HSPRN PRN ORAL Insomnia 06/14/17 21:15 06/21/17 21:14 06/15/17 00:27 Theophylline (William-Dur) 100 mg EVERY 12 HOURS ORAL 06/15/17 09:00 07/15/17 08:59 06/16/17 08:47 Fabian Paulino MD Jun 16, 2017 12:43
--- NOTE | 2017-06-16 14:07 | General Progress Note ---
Assessment/Plan Problem List: (1) SOB (shortness of breath) ICD Codes: R06.02 - Shortness of breath SNOMED: 115791753 (2) Anemia ICD Codes: D64.9 - Anemia, unspecified SNOMED: 784208930 (3) Asthma exacerbation ICD Codes: J45.901 - Unspecified asthma with (acute) exacerbation SNOMED: 165361465 (4) Diabetes mellitus ICD Codes: E11.9 - Type 2 diabetes mellitus without complications SNOMED: 69235762 (5) Rheumatoid arthritis ICD Codes: M06.9 - Rheumatoid arthritis, unspecified SNOMED: 04089462 (6) Hypertension ICD Codes: I10 - Essential (primary) hypertension SNOMED: 75679117 Status: unchanged Assessment/Plan o2 pulm tx ot pt diet cbc bmp am Subjective Constitutional: Reports: weakness Respiratory: Reports: shortness of breath Allergies: Coded Allergies: NO KNOWN ALLERGIES (Unverified Allergy, Unknown, 03/07/15) NO KNOWN DRUG ALLERGIES (Unverified Allergy, Unknown, 03/19/17) All Systems: reviewed and negative except above Subjective calm in bed Objective Last 24 Hour Vital Signs Date Time Temp Pulse Resp B/P (MAP) Pulse Ox O2 Delivery O2 Flow Rate FiO2 06/16/17 10:32 91 18 Room Air 06/16/17 08:58 139/80 06/16/17 08:58 92 139/80 06/16/17 08:00 95 06/16/17 08:00 97.7 92 18 139/80 94 Room Air 97.7 06/16/17 03:49 79 06/16/17 00:07 89 06/16/17 00:00 98.0 69 20 124/77 91 Room Air 98.0 06/15/17 20:32 70 18 Room Air 06/15/17 20:00 87 06/15/17 20:00 98.6 94 22 134/69 91 Room Air 98.6 06/15/17 16:27 92 06/15/17 16:00 97.3 103 22 141/80 95 Room Air 97.3 Intake and Output 06/15/17 06/16/17 19:00 07:00 Intake Total 360 ml 120 ml Balance 360 ml 120 ml Intake Oral 360 ml 120 ml # Voids 3 2 # Bowel Movements 1 1 Laboratory Tests 06/16/17 07:50: White Blood Count 11.9H, Red Blood Count 3.88L, Hemoglobin 10.7L, Hematocrit 34.5L, Mean Corpuscular Volume 89, Mean Corpuscular Hemoglobin 27.6, Mean Corpuscular Hemoglobin Concent 31.0L, Red Cell Distribution Width 15.3H, Platelet Count 231, Mean Platelet Volume 7.2, Neutrophils (%) (Auto) , Lymphocytes (%) (Auto) , Monocytes (%) (Auto) , Eosinophils (%) (Auto) , Basophils (%) (Auto) , Differential Total Cells Counted 100, Neutrophils % ( Manual) 92H, Lymphocytes % (Manual) 5L, Monocytes % (Manual) 3, Eosinophils % ( Manual) 0, Basophils % (Manual) 0, Band Neutrophils 0, Platelet Estimate Adequate, Platelet Morphology Normal, Anisocytosis 1+, Microcytosis 1+, Sodium Level 138, Potassium Level 3.9, Chloride Level 104, Carbon Dioxide Level 29, Anion Gap 5, Blood Urea Nitrogen 27H, Creatinine 0.8, Estimat Glomerular Filtration Rate , Glucose Level 274#H, Calcium Level 8.2L Height (Feet): 5 Height (Inches): 4.00 Weight (Pounds): 200 General Appearance: alert EENT: normal ENT inspection Neck: normal alignment Cardiovascular: normal peripheral pulses, normal rate, regular rhythm Respiratory/Chest: chest wall non-tender, lungs clear, decreased breath sounds Abdomen: normal bowel sounds, non tender, soft Extremities: normal inspection Edema: no edema noted Arm (L), no edema noted Arm (R), no edema noted Leg (L), no edema noted Leg (R), no edema noted Pedal (L), no edema noted Pedal (R), no edema noted Generalized Neurologic: responsive, motor weakness Skin: normal pigmentation, warm/dry MARIE SOLANO Jun 16, 2017 14:07
[2017-06-16 16:00] VITALS: BP 130/70
[2017-06-16] MEDS ORDERED: Vancomycin 1.5 GM/D5W 250ML IVPB ONE (16:00)
--- NOTE | 2017-06-16 16:34 | Infectious Diseases Prog Note ---
Assessment/Plan Assessment/Plan ASSESSMENT: The patient is a 71-year-old female with: Leukocytosis , mild ( on steroids ) +ve blood cx : GPC , ? contaminant 2DE : Left ventricular ejection fraction estimated to be 60-65 % Probable community-associated pneumonia. Chest x-ray, mild interstitial edema, Shortness of breath probably due to congestive heart failure. Afebrile CRP : 1.7 Rheumatic arthritis. History of hypothyroidism. Hyperlipidemia. Hypertension. History of cholecystectomy. Diabetes. Hypothyroidism. Anxiety. Anemia. PLAN: cont pt on on Levaquin d # 2 , add IV Vanco D # 1 Monitor cultures (blood, sputum). , Rpt BlCx CRP. Monitor chest x-ray. Monitor ( CBC , BMP ) may need BRIGETTE Subjective Allergies: Coded Allergies: NO KNOWN ALLERGIES (Unverified Allergy, Unknown, 03/07/15) NO KNOWN DRUG ALLERGIES (Unverified Allergy, Unknown, 03/19/17) Subjective +ve blood cx : GPC Objective Vital Signs Last 24 Hour Vital Signs Date Time Temp Pulse Resp B/P (MAP) Pulse Ox O2 Delivery O2 Flow Rate FiO2 06/16/17 12:00 98.8 84 18 129/69 95 Room Air 98.8 06/16/17 12:00 88 06/16/17 10:32 91 18 Room Air 06/16/17 08:58 139/80 06/16/17 08:58 92 139/80 06/16/17 08:00 95 06/16/17 08:00 97.7 92 18 139/80 94 Room Air 97.7 06/16/17 03:49 79 06/16/17 00:07 89 06/16/17 00:00 98.0 69 20 124/77 91 Room Air 98.0 06/15/17 20:32 70 18 Room Air 06/15/17 20:00 87 06/15/17 20:00 98.6 94 22 134/69 91 Room Air 98.6 Height (Feet): 5 Height (Inches): 4.00 Weight (Pounds): 200 HEENT: anicteric Respiratory/Chest: no respiratory distress Cardiovascular: regularly irregular Abdomen: non distended Microbiology Date/Time Source Procedure Growth Status 06/14/17 17:35 Blood Blood Culture - Preliminary Resulted 06/14/17 17:20 Blood Blood Culture - Preliminary Resulted 4/8/18 15:30 Nasopharynx Influenza Types A,B Antigen (ANUJA) - Final Complete Laboratory Tests Test 06/16/17 07:50 White Blood Count 11.9 K/UL (4.8-10.8) H Red Blood Count 3.88 M/UL (4.20-5.40) L Hemoglobin 10.7 G/DL (12.0-16.0) L Hematocrit 34.5 % (37.0-47.0) L Mean Corpuscular Volume 89 FL (80-99) Mean Corpuscular Hemoglobin 27.6 PG (27.0-31.0) Mean Corpuscular Hemoglobin Concent 31.0 G/DL (32.0-36.0) L Red Cell Distribution Width 15.3 % (11.6-14.8) H Platelet Count 231 K/UL (150-450) Mean Platelet Volume 7.2 FL (6.5-10.1) Neutrophils (%) (Auto) % (45.0-75.0) Lymphocytes (%) (Auto) % (20.0-45.0) Monocytes (%) (Auto) % (1.0-10.0) Eosinophils (%) (Auto) % (0.0-3.0) Basophils (%) (Auto) % (0.0-2.0) Differential Total Cells Counted 100 Neutrophils % (Manual) 92 % (45-75) H Lymphocytes % (Manual) 5 % (20-45) L Monocytes % (Manual) 3 % (1-10) Eosinophils % (Manual) 0 % (0-3) Basophils % (Manual) 0 % (0-2) Band Neutrophils 0 % (0-8) Platelet Estimate Adequate Platelet Morphology Normal Anisocytosis 1+ Microcytosis 1+ Sodium Level 138 MMOL/L (136-145) Potassium Level 3.9 MMOL/L (3.5-5.1) Chloride Level 104 MMOL/L (98-107) Carbon Dioxide Level 29 MMOL/L (21-32) Anion Gap 5 mmol/L (5-15) Blood Urea Nitrogen 27 mg/dL (7-18) H Creatinine 0.8 MG/DL (0.55-1.30) Estimat Glomerular Filtration Rate mL/min (>60) Glucose Level 274 MG/DL (74-106) #H Calcium Level 8.2 MG/DL (8.5-10.1) L Current Medications Medications (Trade) Dose Ordered Sig/Harsh Route PRN Reason Start Time Stop Time Status Last Admin Dose Admin Acetaminophen (Tylenol) 650 mg Q4H PRN ORAL fever 06/14/17 21:15 07/14/17 21:14 Albuterol/ Ipratropium (Albuterol/ Ipratropium) 3 ml EVERY 4 HOURS PRN HHN dyspnea 06/14/17 21:15 06/19/17 21:14 06/15/17 07:53 Amlodipine Besylate (Norvasc) 5 mg DAILY ORAL 06/15/17 09:00 07/15/17 08:59 06/16/17 08:58 Clonidine HCl (Catapres Tab) 0.1 mg EVERY 4 HOURS PRN ORAL sbp more than 160 06/14/17 21:15 07/14/17 21:14 Dextrose (Dextrose 50%) 25 ml STAT PRN IV BS 60-69mg/dl 06/14/17 21:15 07/14/17 21:14 Dextrose (Dextrose 50%) 50 ml STAT PRN IV BS less than 60mg/dl 06/14/17 21:15 07/14/17 21:14 Enalapril Maleate (Vasotec) 10 mg DAILY ORAL 06/15/17 09:00 07/15/17 08:59 06/16/17 08:58 Heparin Sodium (Porcine) (Heparin 5000 units/ml) 5,000 units EVERY 12 HOURS SUBQ 06/15/17 09:00 07/15/17 08:59 06/16/17 09:00 Insulin Aspart (NovoLOG) BEFORE MEALS AND HS SUBQ 06/15/17 06:30 07/15/17 06:29 06/16/17 12:23 Levofloxacin 150 ml @ 100 mls/hr Q24H IVPB 06/15/17 14:30 06/22/17 14:29 06/16/17 15:01 Levothyroxine Sodium (Synthroid) 125 mcg DAILY ORAL 06/15/17 09:00 07/15/17 08:59 06/16/17 08:47 Lorazepam (Ativan 2mg/ml 1ml) 0.5 mg Q4H PRN IV For Anxiety 06/14/17 21:15 06/21/17 21:14 06/15/17 16:27 Methylprednisolone Sodium Succinate (Solu-MEDROL) 60 mg DAILY IV 06/17/17 09:00 07/17/17 08:59 Morphine Sulfate (Morphine Sulfate) 2 mg EVERY 4 HOURS PRN IVP severe pain 7-10 06/14/17 21:15 06/21/17 21:14 Nitroglycerin (Ntg) 0.4 mg Q5M X 3 DOSES PRN SL Prn Chest Pain 06/14/17 21:15 07/14/17 21:14 Ondansetron HCl (Zofran) 4 mg Q6H PRN IVP Nausea & Vomiting 06/14/17 21:15 07/14/17 21:14 Pravastatin Sodium (Pravachol) 80 mg DAILY ORAL 06/15/17 09:00 07/15/17 08:59 06/16/17 08:47 Promethazine HCl/ Codeine (Phenergan with Codeine) 5 ml EVERY 6 HOURS PRN ORAL cough 06/14/17 21:15 07/14/17 21:14 06/15/17 10:02 Temazepam (Restoril) 15 mg HSPRN PRN ORAL Insomnia 06/14/17 21:15 06/21/17 21:14 06/15/17 00:27 Theophylline (William-Dur) 100 mg EVERY 12 HOURS ORAL 06/15/17 09:00 07/15/17 08:59 06/16/17 08:47 Vancomycin HCl (Vanco rx to dose) 1 ea DAILY PRN MISC Per rx protocol 06/16/17 15:00 07/16/17 14:59 Vancomycin HCl/ Dextrose 250 ml @ 125 mls/hr ONCE ONCE IVPB 06/16/17 16:00 06/16/17 17:59 Vancomycin HCl/ Dextrose 250 ml @ 166.667 mls/hr Q24H IVPB 06/17/17 16:00 06/22/17 15:59 Anil Delgado MD Jun 16, 2017 16:34
[2017-06-16 20:00] VITALS: BP 150/100
[2017-06-17] VITALS: BP 120/64
[2017-06-17] MEDS: Promethazine/Codeine 5ml UD ORAL PRN ×2 (00:23→12:00)
[2017-06-17 04:00] VITALS: BP 130/64
[2017-06-17] MEDS: NovoLOG Insulin Flexpen SUBQ SCH ×3 (06:23→20:44)
[2017-06-17 08:00] VITALS: BP 119/66
[2017-06-17 08:32] LABS: BASOPHILS % (AUTO) 0.4 % (0.0-2.0); HEMATOCRIT 36.8 % (37.0-47.0); HEMOGLOBIN 12.2 G/DL (12.0-16.0); LYMPHOCYTES % (AUTO) 12.1 % (20.0-45.0); MEAN CORPUSCULAR VOLUME 87 FL (80-99); MONOCYTES % (AUTO) 10.4 % (1.0-10.0); NEUTROPHILS % (AUTO) 77.1 % (45.0-75.0); PLATELET COUNT 255 K/UL (150-450); RED CELL DISTRIBUTION WIDTH 14.7 % (11.6-14.8); WHITE BLOOD COUNT 10.5 K/UL (4.8-10.8)
[2017-06-17] MEDS ORDERED: Solu-MEDROL 125mg Inj IV SCH (09:00)
[2017-06-17 09:23] LABS: ANION GAP 7 mmol/L (5-15); BLOOD UREA NITROGEN 24 mg/dL (7-18); CALCIUM 8.4 MG/DL (8.5-10.1); CARBON DIOXIDE 27 MMOL/L (21-32); CHLORIDE 105 MMOL/L (98-107); CREATININE 0.7 MG/DL (0.55-1.30); POTASSIUM 3.8 MMOL/L (3.5-5.1); SODIUM 139 MMOL/L (136-145)
[2017-06-17] MEDS: Levothyroxine 125mcg tab ORAL SCH (09:25)
[2017-06-17] MEDS: Theophylline ER 100mg ORAL SCH ×2 (09:25→20:42)
[2017-06-17] MEDS: Heparin 5000 units/ml inj SUBQ SCH ×2 (09:34→20:43)
[2017-06-17 12:00] VITALS: BP 135/75
--- NOTE | 2017-06-17 12:43 | Diagnostic Imaging Report ---
APPROVED REPORT CPT Code: 84576 Present Symptoms Comments: BILATERAL LEGS PAIN. BILATERAL: Imaging reveals a patent deep venous system bilaterally. There is no evidence of thrombus within the femoral, popliteal or tibial segments. The greater saphenous veins are also within normal limits. Doppler indicates normal spontaneous flow within these segments.
--- NOTE | 2017-06-17 14:32 | Infectious Diseases Prog Note ---
Assessment/Plan Assessment/Plan ASSESSMENT: The patient is a 71-year-old female with: Leukocytosis, SP ( on steroids ) +ve blood cx : Stah sp , ? contaminant Exam : no evid of prosthetic joint ( Bl Knee ) infection 2DE : Left ventricular ejection fraction estimated to be 60-65 % Probable community-associated pneumonia. cough improved Chest x-ray, mild interstitial edema, Shortness of breath probably due to congestive heart failure. Afebrile CRP : 1.7 Rheumatic arthritis. History of hypothyroidism. Hyperlipidemia. Hypertension. History of cholecystectomy. Diabetes. Hypothyroidism. Anxiety. Anemia. PLAN: cont pt on on Levaquin d # 3 / 5 , add IV Vanco D # 2 Monitor cultures (blood, sputum). CRP. Monitor chest x-ray. Monitor ( CBC , BMP ) may need BRIGETTE Subjective Allergies: Coded Allergies: NO KNOWN ALLERGIES (Unverified Allergy, Unknown, 03/07/15) NO KNOWN DRUG ALLERGIES (Unverified Allergy, Unknown, 03/19/17) Subjective Afebrile Objective Vital Signs Last 24 Hour Vital Signs Date Time Temp Pulse Resp B/P (MAP) Pulse Ox O2 Delivery O2 Flow Rate FiO2 06/17/17 12:00 97.1 85 19 135/75 95 Nasal Cannula 2.0 97.1 06/17/17 09:26 87 119/66 06/17/17 09:24 119/66 06/17/17 08:00 97.7 87 20 119/66 93 Room Air 97.7 06/17/17 07:20 82 16 Room Air 21 06/17/17 04:00 76 06/17/17 04:00 97.0 82 20 130/64 98 Room Air 97.0 06/17/17 00:00 82 06/17/17 00:00 98.1 78 20 120/64 95 Room Air 98.1 06/16/17 20:00 97.3 84 20 150/100 95 Room Air 97.3 06/16/17 20:00 80 06/16/17 19:40 86 16 Room Air 21 06/16/17 16:00 80 06/16/17 16:00 98.1 85 18 130/70 95 Room Air 98.1 Height (Feet): 5 Height (Inches): 4.00 Weight (Pounds): 200 HEENT: anicteric Respiratory/Chest: no respiratory distress Cardiovascular: no gallop/murmur Abdomen: non distended Microbiology Date/Time Source Procedure Growth Status 06/14/17 17:35 Blood Blood Culture - Preliminary Staphylococcus Species Resulted 06/14/17 17:20 Blood Blood Culture - Preliminary Staphylococcus Species Resulted 06/15/17 15:30 Nasopharynx Influenza Types A,B Antigen (ANUJA) - Final Complete Laboratory Tests Test 06/17/17 07:35 White Blood Count 10.5 K/UL (4.8-10.8) Red Blood Count 4.20 M/UL (4.20-5.40) Hemoglobin 12.2 G/DL (12.0-16.0) Hematocrit 36.8 % (37.0-47.0) L Mean Corpuscular Volume 87 FL (80-99) Mean Corpuscular Hemoglobin 29.0 PG (27.0-31.0) Mean Corpuscular Hemoglobin Concent 33.1 G/DL (32.0-36.0) Red Cell Distribution Width 14.7 % (11.6-14.8) Platelet Count 255 K/UL (150-450) Mean Platelet Volume 7.2 FL (6.5-10.1) Neutrophils (%) (Auto) 77.1 % (45.0-75.0) H Lymphocytes (%) (Auto) 12.1 % (20.0-45.0) L Monocytes (%) (Auto) 10.4 % (1.0-10.0) H Eosinophils (%) (Auto) 0.0 % (0.0-3.0) Basophils (%) (Auto) 0.4 % (0.0-2.0) Sodium Level 139 MMOL/L (136-145) Potassium Level 3.8 MMOL/L (3.5-5.1) Chloride Level 105 MMOL/L (98-107) Carbon Dioxide Level 27 MMOL/L (21-32) Anion Gap 7 mmol/L (5-15) Blood Urea Nitrogen 24 mg/dL (7-18) H Creatinine 0.7 MG/DL (0.55-1.30) Estimat Glomerular Filtration Rate mL/min (>60) Glucose Level 122 MG/DL (74-106) #H Calcium Level 8.4 MG/DL (8.5-10.1) L Current Medications Medications (Trade) Dose Ordered Sig/Harsh Route PRN Reason Start Time Stop Time Status Last Admin Dose Admin Acetaminophen (Tylenol) 650 mg Q4H PRN ORAL fever 06/14/17 21:15 07/14/17 21:14 Albuterol/ Ipratropium (Albuterol/ Ipratropium) 3 ml EVERY 4 HOURS PRN HHN dyspnea 06/14/17 21:15 06/19/17 21:14 06/15/17 07:53 Amlodipine Besylate (Norvasc) 5 mg DAILY ORAL 06/15/17 09:00 07/15/17 08:59 06/17/17 09:26 Clonidine HCl (Catapres Tab) 0.1 mg EVERY 4 HOURS PRN ORAL sbp more than 160 06/14/17 21:15 07/14/17 21:14 Dextrose (Dextrose 50%) 25 ml STAT PRN IV BS 60-69mg/dl 06/14/17 21:15 07/14/17 21:14 Dextrose (Dextrose 50%) 50 ml STAT PRN IV BS less than 60mg/dl 06/14/17 21:15 07/14/17 21:14 Enalapril Maleate (Vasotec) 10 mg DAILY ORAL 06/15/17 09:00 07/15/17 08:59 06/17/17 09:24 Heparin Sodium (Porcine) (Heparin 5000 units/ml) 5,000 units EVERY 12 HOURS SUBQ 06/15/17 09:00 07/15/17 08:59 06/17/17 09:34 Insulin Aspart (NovoLOG) BEFORE MEALS AND HS SUBQ 06/15/17 06:30 07/15/17 06:29 06/17/17 12:03 Levofloxacin 150 ml @ 100 mls/hr Q24H IVPB 06/15/17 14:30 06/22/17 14:29 06/16/17 15:01 Levothyroxine Sodium (Synthroid) 125 mcg DAILY ORAL 06/15/17 09:00 07/15/17 08:59 06/17/17 09:25 Lorazepam (Ativan 2mg/ml 1ml) 0.5 mg Q4H PRN IV For Anxiety 06/14/17 21:15 06/21/17 21:14 06/15/17 16:27 Methylprednisolone Sodium Succinate (Solu-MEDROL) 60 mg DAILY IV 06/17/17 09:00 07/17/17 08:59 06/17/17 09:42 Morphine Sulfate (Morphine Sulfate) 2 mg EVERY 4 HOURS PRN IVP severe pain 706/14/17 21:15 06/21/17 21:14 Nitroglycerin (Ntg) 0.4 mg Q5M X 3 DOSES PRN SL Prn Chest Pain 06/14/17 21:15 07/14/17 21:14 Ondansetron HCl (Zofran) 4 mg Q6H PRN IVP Nausea & Vomiting 06/14/17 21:15 07/14/17 21:14 Pravastatin Sodium (Pravachol) 80 mg DAILY ORAL 06/15/17 09:00 07/15/17 08:59 06/17/17 09:25 Promethazine HCl/ Codeine (Phenergan with Codeine) 5 ml EVERY 6 HOURS PRN ORAL cough 06/14/17 21:15 07/14/17 21:14 06/17/17 12:00 Temazepam (Restoril) 15 mg HSPRN PRN ORAL Insomnia 06/14/17 21:15 06/21/17 21:14 06/15/17 00:27 Theophylline (William-Dur) 100 mg EVERY 12 HOURS ORAL 06/15/17 09:00 07/15/17 08:59 06/17/17 09:25 Vancomycin HCl (Vanco rx to dose) 1 ea DAILY PRN MISC Per rx protocol 06/16/17 15:00 07/16/17 14:59 Vancomycin HCl/ Dextrose 250 ml @ 166.667 mls/hr Q24H IVPB 06/17/17 16:00 06/22/17 15:59 Anil Delgado MD Jun 17, 2017 14:32
--- NOTE | 2017-06-17 15:07 | Pulmonology Progress Note ---
Assessment/Plan Problems: (1) Asthma exacerbation (2) Rheumatoid arthritis (3) Diabetes mellitus (4) Hypothyroidism (5) Hypertension Assessment/Plan improving respiratory treatment check sputum check echo taper steroids to QD to 30 qd dvt porphylaxis telemetry reviewed Subjective ROS Limited/Unobtainable: No Constitutional: Reports: no symptoms HEENT: Repors: no symptoms Respiratory: Reports: no symptoms Cardiovascular: Reports: no symptoms Allergies: Coded Allergies: NO KNOWN ALLERGIES (Unverified Allergy, Unknown, 03/07/15) NO KNOWN DRUG ALLERGIES (Unverified Allergy, Unknown, 03/19/17) Objective Last 24 Hour Vital Signs Date Time Temp Pulse Resp B/P (MAP) Pulse Ox O2 Delivery O2 Flow Rate FiO2 06/17/17 12:00 97.1 85 19 135/75 95 Nasal Cannula 2.0 97.1 06/17/17 09:26 87 119/66 06/17/17 09:24 119/66 06/17/17 08:00 97.7 87 20 119/66 93 Room Air 97.7 06/17/17 07:20 82 16 Room Air 21 06/17/17 04:00 76 06/17/17 04:00 97.0 82 20 130/64 98 Room Air 97.0 06/17/17 00:00 82 06/17/17 00:00 98.1 78 20 120/64 95 Room Air 98.1 06/16/17 20:00 97.3 84 20 150/100 95 Room Air 97.3 06/16/17 20:00 80 06/16/17 19:40 86 16 Room Air 21 06/16/17 16:00 80 06/16/17 16:00 98.1 85 18 130/70 95 Room Air 98.1 Intake and Output 06/16/17 06/17/17 19:00 07:00 Intake Total 232 ml 116 ml Balance 232 ml 116 ml Intake Oral 232 ml 116 ml # Voids 2 3 General Appearance: WD/WN HEENT: normocephalic, atraumatic Respiratory/Chest: chest wall non-tender, lungs clear Breasts: no masses Cardiovascular: normal peripheral pulses Abdomen: normal bowel sounds, soft, non tender Genitourinary: normal external genitalia Extremities: no cyanosis 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 Microbiology Date/Time Source Procedure Growth Status 06/14/17 17:35 Blood Blood Culture - Preliminary Staphylococcus Species Resulted 06/14/17 17:20 Blood Blood Culture - Preliminary Staphylococcus Species Resulted 06/15/17 15:30 Nasopharynx Influenza Types A,B Antigen (ANUJA) - Final Complete Laboratory Tests 06/17/17 07:35: White Blood Count 10.5, Red Blood Count 4.20, Hemoglobin 12.2, Hematocrit 36.8L , Mean Corpuscular Volume 87, Mean Corpuscular Hemoglobin 29.0, Mean Corpuscular Hemoglobin Concent 33.1, Red Cell Distribution Width 14.7, Platelet Count 255, Mean Platelet Volume 7.2, Neutrophils (%) (Auto) 77.1H, Lymphocytes ( %) (Auto) 12.1L, Monocytes (%) (Auto) 10.4H, Eosinophils (%) (Auto) 0.0, Basophils (%) (Auto) 0.4, Sodium Level 139, Potassium Level 3.8, Chloride Level 105, Carbon Dioxide Level 27, Anion Gap 7, Blood Urea Nitrogen 24H, Creatinine 0.7, Estimat Glomerular Filtration Rate , Glucose Level 122#H, Calcium Level 8.4L Current Medications Medications (Trade) Dose Ordered Sig/Harsh Route PRN Reason Start Time Stop Time Status Last Admin Dose Admin Acetaminophen (Tylenol) 650 mg Q4H PRN ORAL fever 06/14/17 21:15 07/14/17 21:14 Albuterol/ Ipratropium (Albuterol/ Ipratropium) 3 ml EVERY 4 HOURS PRN HHN dyspnea 06/14/17 21:15 06/19/17 21:14 06/15/17 07:53 Amlodipine Besylate (Norvasc) 5 mg DAILY ORAL 06/15/17 09:00 07/15/17 08:59 06/17/17 09:26 Clonidine HCl (Catapres Tab) 0.1 mg EVERY 4 HOURS PRN ORAL sbp more than 160 06/14/17 21:15 07/14/17 21:14 Dextrose (Dextrose 50%) 25 ml STAT PRN IV BS 60-69mg/dl 06/14/17 21:15 07/14/17 21:14 Dextrose (Dextrose 50%) 50 ml STAT PRN IV BS less than 60mg/dl 06/14/17 21:15 07/14/17 21:14 Enalapril Maleate (Vasotec) 10 mg DAILY ORAL 06/15/17 09:00 07/15/17 08:59 06/17/17 09:24 Heparin Sodium (Porcine) (Heparin 5000 units/ml) 5,000 units EVERY 12 HOURS SUBQ 06/15/17 09:00 07/15/17 08:59 06/17/17 09:34 Insulin Aspart (NovoLOG) BEFORE MEALS AND HS SUBQ 06/15/17 06:30 07/15/17 06:29 06/17/17 12:03 Levofloxacin 150 ml @ 100 mls/hr Q24H IVPB 06/15/17 14:30 06/22/17 14:29 06/16/17 15:01 Levothyroxine Sodium (Synthroid) 125 mcg DAILY ORAL 06/15/17 09:00 07/15/17 08:59 06/17/17 09:25 Lorazepam (Ativan 2mg/ml 1ml) 0.5 mg Q4H PRN IV For Anxiety 06/14/17 21:15 06/21/17 21:14 06/15/17 16:27 Methylprednisolone Sodium Succinate (Solu-MEDROL) 60 mg DAILY IV 06/17/17 09:00 07/17/17 08:59 06/17/17 09:42 Morphine Sulfate (Morphine Sulfate) 2 mg EVERY 4 HOURS PRN IVP severe pain 706/14/17 21:15 06/21/17 21:14 Nitroglycerin (Ntg) 0.4 mg Q5M X 3 DOSES PRN SL Prn Chest Pain 06/14/17 21:15 07/14/17 21:14 Ondansetron HCl (Zofran) 4 mg Q6H PRN IVP Nausea & Vomiting 06/14/17 21:15 07/14/17 21:14 Pravastatin Sodium (Pravachol) 80 mg DAILY ORAL 06/15/17 09:00 07/15/17 08:59 06/17/17 09:25 Promethazine HCl/ Codeine (Phenergan with Codeine) 5 ml EVERY 6 HOURS PRN ORAL cough 06/14/17 21:15 07/14/17 21:14 06/17/17 12:00 Temazepam (Restoril) 15 mg HSPRN PRN ORAL Insomnia 06/14/17 21:15 06/21/17 21:14 06/15/17 00:27 Theophylline (William-Dur) 100 mg EVERY 12 HOURS ORAL 06/15/17 09:00 07/15/17 08:59 06/17/17 09:25 Vancomycin HCl (Vanco rx to dose) 1 ea DAILY PRN MISC Per rx protocol 06/16/17 15:00 07/16/17 14:59 Vancomycin HCl/ Dextrose 250 ml @ 166.667 mls/hr Q24H IVPB 06/17/17 16:00 06/22/17 15:59 Fabian Paulino MD Jun 17, 2017 15:07
--- NOTE | 2017-06-17 15:28 | General Progress Note ---
Assessment/Plan Problem List: (1) SOB (shortness of breath) ICD Codes: R06.02 - Shortness of breath SNOMED: 225530211 (2) Anemia ICD Codes: D64.9 - Anemia, unspecified SNOMED: 343897012 (3) Asthma exacerbation ICD Codes: J45.901 - Unspecified asthma with (acute) exacerbation SNOMED: 073758888 (4) Diabetes mellitus ICD Codes: E11.9 - Type 2 diabetes mellitus without complications SNOMED: 30027951 (5) Rheumatoid arthritis ICD Codes: M06.9 - Rheumatoid arthritis, unspecified SNOMED: 49443312 (6) Hypertension ICD Codes: I10 - Essential (primary) hypertension SNOMED: 34201858 Status: stable, progressing, tolerating diet Assessment/Plan o2 pulm tx ot pt diet cbc bmp am dc plan w hh Subjective Constitutional: Reports: weakness Respiratory: Reports: shortness of breath Allergies: Coded Allergies: NO KNOWN ALLERGIES (Unverified Allergy, Unknown, 03/07/15) NO KNOWN DRUG ALLERGIES (Unverified Allergy, Unknown, 03/19/17) All Systems: reviewed and negative except above Subjective calm in bed Objective Last 24 Hour Vital Signs Date Time Temp Pulse Resp B/P (MAP) Pulse Ox O2 Delivery O2 Flow Rate FiO2 06/17/17 12:00 97.1 85 19 135/75 95 Nasal Cannula 2.0 97.1 06/17/17 09:26 87 119/66 06/17/17 09:24 119/66 06/17/17 08:00 97.7 87 20 119/66 93 Room Air 97.7 06/17/17 07:20 82 16 Room Air 21 06/17/17 04:00 76 06/17/17 04:00 97.0 82 20 130/64 98 Room Air 97.0 06/17/17 00:00 82 06/17/17 00:00 98.1 78 20 120/64 95 Room Air 98.1 06/16/17 20:00 97.3 84 20 150/100 95 Room Air 97.3 06/16/17 20:00 80 06/16/17 19:40 86 16 Room Air 21 06/16/17 16:00 80 06/16/17 16:00 98.1 85 18 130/70 95 Room Air 98.1 Intake and Output 06/16/17 06/17/17 19:00 07:00 Intake Total 232 ml 116 ml Balance 232 ml 116 ml Intake Oral 232 ml 116 ml # Voids 2 3 Laboratory Tests 06/17/17 07:35: White Blood Count 10.5, Red Blood Count 4.20, Hemoglobin 12.2, Hematocrit 36.8L , Mean Corpuscular Volume 87, Mean Corpuscular Hemoglobin 29.0, Mean Corpuscular Hemoglobin Concent 33.1, Red Cell Distribution Width 14.7, Platelet Count 255, Mean Platelet Volume 7.2, Neutrophils (%) (Auto) 77.1H, Lymphocytes ( %) (Auto) 12.1L, Monocytes (%) (Auto) 10.4H, Eosinophils (%) (Auto) 0.0, Basophils (%) (Auto) 0.4, Sodium Level 139, Potassium Level 3.8, Chloride Level 105, Carbon Dioxide Level 27, Anion Gap 7, Blood Urea Nitrogen 24H, Creatinine 0.7, Estimat Glomerular Filtration Rate , Glucose Level 122#H, Calcium Level 8.4L Height (Feet): 5 Height (Inches): 4.00 Weight (Pounds): 200 General Appearance: lethargic EENT: normal ENT inspection Neck: normal alignment Cardiovascular: normal peripheral pulses, normal rate, regular rhythm Respiratory/Chest: chest wall non-tender, lungs clear, decreased breath sounds Abdomen: normal bowel sounds, non tender, soft Extremities: normal inspection Edema: no edema noted Arm (L), no edema noted Arm (R), no edema noted Leg (L), no edema noted Leg (R), no edema noted Pedal (L), no edema noted Pedal (R), no edema noted Generalized Neurologic: responsive, motor weakness Skin: normal pigmentation, warm/dry MARIE SOLANO Jun 17, 2017 15:28
[2017-06-17] MEDS ORDERED: Tubing IV Secondary IV ONE (15:33)
[2017-06-17] MEDS ORDERED: NS 500ML ONE (15:33)
[2017-06-17] MEDS ORDERED: Vancomycin 1250mg/D5W 250ml IVPB SCH (16:00)
[2017-06-17] MEDS ORDERED: Nitroglycerin Subl 0.4mg tab SL PRN (19:30)
[2017-06-17] MEDS ORDERED: Albuterol/Ipratropium 3ml neb HHN PRN (19:35)
[2017-06-17] MEDS ORDERED: Promethazine/Codeine 5ml UD ORAL PRN (19:36)
[2017-06-17] MEDS ORDERED: Morphine Sulfate 4mg/ml Inj IVP PRN (19:36)
[2017-06-17] MEDS ORDERED: LORazepam Inj 2mg/ml 1ml IV PRN (19:36)
[2017-06-17 19:59] VITALS: BP 111/67
[2017-06-18 00:15] VITALS: BP 109/63
[2017-06-18 04:00] VITALS: BP 127/66
[2017-06-18] MEDS: NovoLOG Insulin Flexpen SUBQ SCH ×3 (05:48→16:29)
[2017-06-18 08:00] VITALS: BP 111/79
[2017-06-18] MEDS ORDERED: Solu-MEDROL 40mg Inj IVP SCH ×2 (09:00)
[2017-06-18] MEDS ORDERED: Levothyroxine 125mcg tab ORAL SCH (09:00)
[2017-06-18 09:08] LABS: BASOPHILS % (AUTO) 1.1 % (0.0-2.0); EOSINOPHILS % (AUTO) 0.2 % (0.0-3.0); HEMATOCRIT 37.8 % (37.0-47.0); HEMOGLOBIN 12.6 G/DL (12.0-16.0); LYMPHOCYTES % (AUTO) 28.2 % (20.0-45.0); MEAN CORPUSCULAR VOLUME 88 FL (80-99); NEUTROPHILS % (AUTO) 60.4 % (45.0-75.0); PLATELET COUNT 239 K/UL (150-450); RED CELL DISTRIBUTION WIDTH 15.3 % (11.6-14.8); WHITE BLOOD COUNT 9.6 K/UL (4.8-10.8)
[2017-06-18 09:23] LABS: ANION GAP 6 mmol/L (5-15); BLOOD UREA NITROGEN 31 mg/dL (7-18); CALCIUM 8.2 MG/DL (8.5-10.1); CARBON DIOXIDE 28 MMOL/L (21-32); CHLORIDE 103 MMOL/L (98-107); CREATININE 0.9 MG/DL (0.55-1.30); POTASSIUM 3.8 MMOL/L (3.5-5.1); SODIUM 137 MMOL/L (136-145)
[2017-06-18] MEDS: Theophylline ER 100mg ORAL SCH (09:26)
[2017-06-18 09:28] VITALS: BP 110/62
[2017-06-18] MEDS: Heparin 5000 units/ml inj SUBQ SCH (10:01)
[2017-06-18 12:00] VITALS: BP 155/87
--- NOTE | 2017-06-18 13:50 | General Progress Note ---
Assessment/Plan Problem List: (1) SOB (shortness of breath) ICD Codes: R06.02 - Shortness of breath SNOMED: 467080234 (2) Anemia ICD Codes: D64.9 - Anemia, unspecified SNOMED: 790626364 (3) Asthma exacerbation ICD Codes: J45.901 - Unspecified asthma with (acute) exacerbation SNOMED: 192163021 (4) Diabetes mellitus ICD Codes: E11.9 - Type 2 diabetes mellitus without complications SNOMED: 83577980 (5) Rheumatoid arthritis ICD Codes: M06.9 - Rheumatoid arthritis, unspecified SNOMED: 02769795 (6) Hypertension ICD Codes: I10 - Essential (primary) hypertension SNOMED: 36355252 Status: stable, progressing, tolerating diet Assessment/Plan o2 pulm tx ot pt diet dc if clear Subjective Constitutional: Reports: weakness Allergies: Coded Allergies: NO KNOWN ALLERGIES (Unverified Allergy, Unknown, 03/07/15) NO KNOWN DRUG ALLERGIES (Unverified Allergy, Unknown, 03/19/17) All Systems: reviewed and negative except above Subjective o2 nc calm in bed Objective Last 24 Hour Vital Signs Date Time Temp Pulse Resp B/P (MAP) Pulse Ox O2 Delivery O2 Flow Rate FiO2 06/18/17 12:00 98.0 69 155/87 98 Nasal Cannula 2.0 98.0 06/18/17 09:28 110/62 98 Nasal Cannula 2.0 06/18/17 09:00 110/62 06/18/17 09:00 80 110/62 06/18/17 08:12 80 18 98 Nasal Cannula 2.0 28 06/18/17 08:03 73 18 95 Nasal Cannula 2.0 28 06/18/17 08:03 80 18 Nasal Cannula 2.0 28 06/18/17 08:00 99.2 91 20 111/79 90 Nasal Cannula 2.0 99.2 06/18/17 05:00 97 Nasal Cannula 2.0 06/18/17 04:00 97.9 89 18 127/66 91 97.9 06/18/17 00:15 97.7 79 18 109/63 93 97.7 06/18/17 00:00 93 Room Air 06/17/17 20:00 93 Room Air 06/17/17 19:59 97.8 81 18 111/67 93 97.8 06/17/17 19:51 82 16 Room Air 21 Intake and Output 06/17/17 06/18/17 19:00 07:00 Intake Total 400 ml 480 ml Balance 400 ml 480 ml Intake Oral 400 ml 480 ml # Voids 4 # Bowel Movements 1 Laboratory Tests 06/18/17 08:20: White Blood Count 9.6, Red Blood Count 4.30, Hemoglobin 12.6, Hematocrit 37.8, Mean Corpuscular Volume 88, Mean Corpuscular Hemoglobin 29.2, Mean Corpuscular Hemoglobin Concent 33.2, Red Cell Distribution Width 15.3H, Platelet Count 239, Mean Platelet Volume 7.1, Neutrophils (%) (Auto) 60.4, Lymphocytes (%) (Auto) 28.2, Monocytes (%) (Auto) 10.0, Eosinophils (%) (Auto) 0.2, Basophils (%) (Auto ) 1.1, Sodium Level 137, Potassium Level 3.8, Chloride Level 103, Carbon Dioxide Level 28, Anion Gap 6, Blood Urea Nitrogen 31H, Creatinine 0.9, Estimat Glomerular Filtration Rate , Glucose Level 230#H, Calcium Level 8.2L Height (Feet): 5 Height (Inches): 4.00 Weight (Pounds): 200 General Appearance: alert EENT: normal ENT inspection Neck: normal alignment Cardiovascular: normal peripheral pulses, normal rate, regular rhythm Respiratory/Chest: chest wall non-tender, lungs clear, normal breath sounds Abdomen: normal bowel sounds, non tender, soft Extremities: normal inspection Edema: no edema noted Arm (L), no edema noted Arm (R), no edema noted Leg (L), no edema noted Leg (R), no edema noted Pedal (L), no edema noted Pedal (R), no edema noted Generalized Neurologic: normal mood/affect, motor weakness Skin: normal pigmentation, warm/dry MARIE SOLANO Jun 18, 2017 13:50
--- NOTE | 2017-06-18 15:23 | Pulmonology Progress Note ---
Assessment/Plan Problems: (1) Asthma exacerbation (2) Rheumatoid arthritis (3) Diabetes mellitus (4) Hypothyroidism (5) Hypertension Assessment/Plan improving respiratory treatment taper steroids dvt porphylaxis dc home Subjective ROS Limited/Unobtainable: No Constitutional: Reports: no symptoms HEENT: Repors: no symptoms Allergies: Coded Allergies: NO KNOWN ALLERGIES (Unverified Allergy, Unknown, 03/07/15) NO KNOWN DRUG ALLERGIES (Unverified Allergy, Unknown, 03/19/17) Objective Last 24 Hour Vital Signs Date Time Temp Pulse Resp B/P (MAP) Pulse Ox O2 Delivery O2 Flow Rate FiO2 06/18/17 12:00 98.0 69 155/87 98 Nasal Cannula 2.0 98.0 06/18/17 09:28 110/62 98 Nasal Cannula 2.0 06/18/17 09:00 110/62 06/18/17 09:00 80 110/62 06/18/17 08:12 80 18 98 Nasal Cannula 2.0 28 06/18/17 08:03 73 18 95 Nasal Cannula 2.0 28 06/18/17 08:03 80 18 Nasal Cannula 2.0 28 06/18/17 08:00 99.2 91 20 111/79 90 Nasal Cannula 2.0 99.2 06/18/17 05:00 97 Nasal Cannula 2.0 06/18/17 04:00 97.9 89 18 127/66 91 97.9 06/18/17 00:15 97.7 79 18 109/63 93 97.7 06/18/17 00:00 93 Room Air 06/17/17 20:00 93 Room Air 06/17/17 19:59 97.8 81 18 111/67 93 97.8 06/17/17 19:51 82 16 Room Air 21 Intake and Output 06/17/17 06/18/17 19:00 07:00 Intake Total 400 ml 480 ml Balance 400 ml 480 ml Intake Oral 400 ml 480 ml # Voids 4 # Bowel Movements 1 General Appearance: WD/WN HEENT: normocephalic, atraumatic Respiratory/Chest: chest wall non-tender, lungs clear Breasts: no masses Cardiovascular: normal peripheral pulses Abdomen: normal bowel sounds, soft, non tender Genitourinary: normal external genitalia Extremities: no clubbing Skin: no rash 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 Microbiology Date/Time Source Procedure Growth Status 06/16/17 18:10 Blood Blood Culture - Preliminary NO GROWTH AFTER 24 HOURS Resulted 06/16/17 18:00 Blood Blood Culture - Preliminary NO GROWTH AFTER 24 HOURS Resulted 06/15/17 15:30 Nasopharynx Influenza Types A,B Antigen (ANUJA) - Final Complete Laboratory Tests 06/18/17 08:20: White Blood Count 9.6, Red Blood Count 4.30, Hemoglobin 12.6, Hematocrit 37.8, Mean Corpuscular Volume 88, Mean Corpuscular Hemoglobin 29.2, Mean Corpuscular Hemoglobin Concent 33.2, Red Cell Distribution Width 15.3H, Platelet Count 239, Mean Platelet Volume 7.1, Neutrophils (%) (Auto) 60.4, Lymphocytes (%) (Auto) 28.2, Monocytes (%) (Auto) 10.0, Eosinophils (%) (Auto) 0.2, Basophils (%) (Auto ) 1.1, Sodium Level 137, Potassium Level 3.8, Chloride Level 103, Carbon Dioxide Level 28, Anion Gap 6, Blood Urea Nitrogen 31H, Creatinine 0.9, Estimat Glomerular Filtration Rate , Glucose Level 230#H, Calcium Level 8.2L Current Medications Medications (Trade) Dose Ordered Sig/Harsh Route PRN Reason Start Time Stop Time Status Last Admin Dose Admin Acetaminophen (Tylenol) 650 mg Q4H PRN ORAL fever 06/17/17 19:34 07/14/17 19:33 Albuterol/ Ipratropium (Albuterol/ Ipratropium) 3 ml EVERY 4 HOURS PRN HHN dyspnea 06/17/17 19:35 06/19/17 19:34 06/18/17 08:07 Amlodipine Besylate (Norvasc) 5 mg DAILY ORAL 06/18/17 09:00 07/15/17 08:59 Clonidine HCl (Catapres Tab) 0.1 mg EVERY 4 HOURS PRN ORAL sbp more than 160 06/17/17 19:35 07/14/17 19:34 Dextrose (Dextrose 50%) 25 ml STAT PRN IV BS 60-69mg/dl 06/17/17 19:35 07/14/17 19:34 Dextrose (Dextrose 50%) 50 ml STAT PRN IV BS less than 60mg/dl 06/17/17 19:35 07/14/17 19:34 Enalapril Maleate (Vasotec) 10 mg DAILY ORAL 06/18/17 09:00 07/15/17 08:59 Heparin Sodium (Porcine) (Heparin 5000 units/ml) 5,000 units EVERY 12 HOURS SUBQ 06/17/17 21:00 07/15/17 08:59 06/18/17 10:01 Insulin Aspart (NovoLOG) BEFORE MEALS AND HS SUBQ 06/17/17 21:00 07/15/17 06:29 06/18/17 12:13 Levofloxacin 150 ml @ 100 mls/hr Q24H IVPB 06/18/17 14:30 06/22/17 14:29 06/18/17 15:04 Levothyroxine Sodium (Synthroid) 125 mcg DAILY ORAL 06/18/17 09:00 07/15/17 08:59 06/18/17 09:26 Lorazepam (Ativan 2mg/ml 1ml) 0.5 mg Q4H PRN IV For Anxiety 06/17/17 19:36 06/21/17 19:35 Methylprednisolone Sodium Succinate (Solu-MEDROL) 30 mg DAILY IVP 06/18/17 09:00 07/18/17 08:59 06/18/17 09:27 Morphine Sulfate (Morphine Sulfate) 2 mg EVERY 4 HOURS PRN IVP severe pain 706/17/17 19:36 06/21/17 19:35 Nitroglycerin (Ntg) 0.4 mg Q5M X 3 DOSES PRN SL Prn Chest Pain 06/17/17 19:30 07/14/17 21:14 Ondansetron HCl (Zofran) 4 mg Q6H PRN IVP Nausea & Vomiting 06/17/17 19:36 07/14/17 19:35 Pravastatin Sodium (Pravachol) 80 mg DAILY ORAL 06/18/17 09:00 07/15/17 08:59 06/18/17 09:26 Promethazine HCl/ Codeine (Phenergan with Codeine) 5 ml EVERY 6 HOURS PRN ORAL cough 06/17/17 19:36 07/17/17 19:35 06/18/17 00:59 Temazepam (Restoril) 15 mg HSPRN PRN ORAL Insomnia 06/17/17 19:37 06/21/17 19:36 06/17/17 23:15 Theophylline (William-Dur) 100 mg EVERY 12 HOURS ORAL 06/17/17 21:00 07/15/17 08:59 06/18/17 09:26 Vancomycin HCl (Vanco rx to dose) 1 ea DAILY PRN MISC Per rx protocol 06/17/17 19:37 07/17/17 19:36 Vancomycin HCl/ Dextrose 250 ml @ 166.667 mls/hr Q24H IVPB 06/18/17 16:00 06/22/17 15:59 Fabian Paulino MD Jun 18, 2017 15:23
[2017-06-18 16:00] VITALS: BP 121/69
[2017-06-18] MEDS ORDERED: Vancomycin 1250mg/D5W 250ml 250 ML IVPB SCH (16:00)
--- NOTE | 2017-06-18 16:54 | Infectious Diseases Prog Note ---
Assessment/Plan Assessment/Plan ASSESSMENT: The patient is a 71-year-old female with: Leukocytosis, SP ( on steroids ) +ve blood cx : CoNS m/l contaminant , pt has no risk factor for bacteremia , and repeat blood Cx are negative Exam : no evid of prosthetic joint ( Bl Knee ) infection 2DE : Left ventricular ejection fraction estimated to be 60-65 % Probable community-associated pneumonia. cough improved Chest x-ray, mild interstitial edema, Shortness of breath probably due to congestive heart failure. Afebrile CRP : 1.7 Rheumatic arthritis. History of hypothyroidism. Hyperlipidemia. Hypertension. History of cholecystectomy. Diabetes. Hypothyroidism. Anxiety. Anemia. PLAN: cont pt on on Levaquin d # 4 / 5 , and DC IV Vanco D # 3 Monitor cultures (blood, sputum). CRP. Monitor chest x-ray. Monitor ( CBC , BMP ) Subjective Allergies: Coded Allergies: NO KNOWN ALLERGIES (Unverified Allergy, Unknown, 03/07/15) NO KNOWN DRUG ALLERGIES (Unverified Allergy, Unknown, 03/19/17) Subjective comfortable , feeling better Objective Vital Signs Last 24 Hour Vital Signs Date Time Temp Pulse Resp B/P (MAP) Pulse Ox O2 Delivery O2 Flow Rate FiO2 06/18/17 16:00 97.7 87 121/69 94 Room Air 97.7 06/18/17 12:00 98.0 69 155/87 98 Nasal Cannula 2.0 98.0 06/18/17 09:28 110/62 98 Nasal Cannula 2.0 06/18/17 09:00 110/62 06/18/17 09:00 80 110/62 06/18/17 08:12 80 18 98 Nasal Cannula 2.0 28 06/18/17 08:03 73 18 95 Nasal Cannula 2.0 28 06/18/17 08:03 80 18 Nasal Cannula 2.0 28 06/18/17 08:00 99.2 91 20 111/79 90 Nasal Cannula 2.0 99.2 06/18/17 05:00 97 Nasal Cannula 2.0 06/18/17 04:00 97.9 89 18 127/66 91 97.9 06/18/17 00:15 97.7 79 18 109/63 93 97.7 06/18/17 00:00 93 Room Air 06/17/17 20:00 93 Room Air 06/17/17 19:59 97.8 81 18 111/67 93 97.8 06/17/17 19:51 82 16 Room Air 21 Height (Feet): 5 Height (Inches): 4.00 Weight (Pounds): 200 HEENT: anicteric Respiratory/Chest: normal breath sounds Cardiovascular: normal peripheral pulses Abdomen: normal bowel sounds Microbiology Date/Time Source Procedure Growth Status 06/16/17 18:10 Blood Blood Culture - Preliminary NO GROWTH AFTER 24 HOURS Resulted 06/16/17 18:00 Blood Blood Culture - Preliminary NO GROWTH AFTER 24 HOURS Resulted Laboratory Tests Test 06/18/17 08:20 White Blood Count 9.6 K/UL (4.8-10.8) Red Blood Count 4.30 M/UL (4.20-5.40) Hemoglobin 12.6 G/DL (12.0-16.0) Hematocrit 37.8 % (37.0-47.0) Mean Corpuscular Volume 88 FL (80-99) Mean Corpuscular Hemoglobin 29.2 PG (27.0-31.0) Mean Corpuscular Hemoglobin Concent 33.2 G/DL (32.0-36.0) Red Cell Distribution Width 15.3 % (11.6-14.8) H Platelet Count 239 K/UL (150-450) Mean Platelet Volume 7.1 FL (6.5-10.1) Neutrophils (%) (Auto) 60.4 % (45.0-75.0) Lymphocytes (%) (Auto) 28.2 % (20.0-45.0) Monocytes (%) (Auto) 10.0 % (1.0-10.0) Eosinophils (%) (Auto) 0.2 % (0.0-3.0) Basophils (%) (Auto) 1.1 % (0.0-2.0) Sodium Level 137 MMOL/L (136-145) Potassium Level 3.8 MMOL/L (3.5-5.1) Chloride Level 103 MMOL/L (98-107) Carbon Dioxide Level 28 MMOL/L (21-32) Anion Gap 6 mmol/L (5-15) Blood Urea Nitrogen 31 mg/dL (7-18) H Creatinine 0.9 MG/DL (0.55-1.30) Estimat Glomerular Filtration Rate mL/min (>60) Glucose Level 230 MG/DL (74-106) #H Calcium Level 8.2 MG/DL (8.5-10.1) L Current Medications Medications (Trade) Dose Ordered Sig/Harsh Route PRN Reason Start Time Stop Time Status Last Admin Dose Admin Acetaminophen (Tylenol) 650 mg Q4H PRN ORAL fever 06/17/17 19:34 07/14/17 19:33 Albuterol/ Ipratropium (Albuterol/ Ipratropium) 3 ml EVERY 4 HOURS PRN HHN dyspnea 06/17/17 19:35 06/19/17 19:34 06/18/17 08:07 Amlodipine Besylate (Norvasc) 5 mg DAILY ORAL 06/18/17 09:00 07/15/17 08:59 Clonidine HCl (Catapres Tab) 0.1 mg EVERY 4 HOURS PRN ORAL sbp more than 160 06/17/17 19:35 07/14/17 19:34 Dextrose (Dextrose 50%) 25 ml STAT PRN IV BS 60-69mg/dl 06/17/17 19:35 07/14/17 19:34 Dextrose (Dextrose 50%) 50 ml STAT PRN IV BS less than 60mg/dl 06/17/17 19:35 07/14/17 19:34 Enalapril Maleate (Vasotec) 10 mg DAILY ORAL 06/18/17 09:00 07/15/17 08:59 Heparin Sodium (Porcine) (Heparin 5000 units/ml) 5,000 units EVERY 12 HOURS SUBQ 06/17/17 21:00 07/15/17 08:59 06/18/17 10:01 Insulin Aspart (NovoLOG) BEFORE MEALS AND HS SUBQ 06/17/17 21:00 07/15/17 06:29 06/18/17 16:29 Levofloxacin 150 ml @ 100 mls/hr Q24H IVPB 06/18/17 14:30 06/22/17 14:29 06/18/17 15:04 Levothyroxine Sodium (Synthroid) 125 mcg DAILY ORAL 06/18/17 09:00 07/15/17 08:59 06/18/17 09:26 Lorazepam (Ativan 2mg/ml 1ml) 0.5 mg Q4H PRN IV For Anxiety 06/17/17 19:36 06/21/17 19:35 Methylprednisolone Sodium Succinate (Solu-MEDROL) 30 mg DAILY IVP 06/18/17 09:00 07/18/17 08:59 06/18/17 09:27 Morphine Sulfate (Morphine Sulfate) 2 mg EVERY 4 HOURS PRN IVP severe pain 7-10 06/17/17 19:36 06/21/17 19:35 Nitroglycerin (Ntg) 0.4 mg Q5M X 3 DOSES PRN SL Prn Chest Pain 06/17/17 19:30 07/14/17 21:14 Ondansetron HCl (Zofran) 4 mg Q6H PRN IVP Nausea & Vomiting 06/17/17 19:36 07/14/17 19:35 Pravastatin Sodium (Pravachol) 80 mg DAILY ORAL 06/18/17 09:00 07/15/17 08:59 06/18/17 09:26 Promethazine HCl/ Codeine (Phenergan with Codeine) 5 ml EVERY 6 HOURS PRN ORAL cough 06/17/17 19:36 07/17/17 19:35 06/18/17 00:59 Temazepam (Restoril) 15 mg HSPRN PRN ORAL Insomnia 06/17/17 19:37 06/21/17 19:36 06/17/17 23:15 Theophylline (William-Dur) 100 mg EVERY 12 HOURS ORAL 06/17/17 21:00 07/15/17 08:59 06/18/17 09:26 Vancomycin HCl (Vanco rx to dose) 1 ea DAILY PRN MISC Per rx protocol 06/17/17 19:37 07/17/17 19:36 Vancomycin HCl/ Dextrose 250 ml @ 166.667 mls/hr Q24H IVPB 06/18/17 16:00 06/22/17 15:59 Anil Delgado MD Jun 18, 2017 16:54
--- NOTE | 2017-06-18 17:36 | Cardiology Report ---
APPROVED REPORT EKG Measurement Heart Uorl09CGTH ID [id number] Sinus rhythm with premature atrial complexes Right bundle branch block Abnormal ECG
[2017-06-18] MEDS ORDERED: NovoLOG Insulin Flexpen SUBQ STA (17:38)
[2017-06-18] MEDS ORDERED: Levemir Flexpen SUBQ SCH (21:00)
--- NOTE | 2017-06-19 13:12 | Discharge Summary ---
Discharge Summary Hospital Course Date of Admission Jun 14, 2017 at 18:51 Date of Discharge Jun 18, 2017 at 19:48 Admitting Diagnosis congestive heart failure PIERRE Manzo is a 71 year old female who was admitted on Jun 14, 2017 at 18: 51 for Congestive Heart Failure Hospital Course [id number] Discharge Discharge Disposition Patient left Fidelia Fonseca NP Jun 19, 2017 13:12
--- NOTE | 2017-06-20 03:30 | Discharge Summary 2 SIG ---
DATE OF ADMISSION: 06/14/2017 DATE OF DISCHARGE: 06/18/2017 CONSULTANTS: 1. Anil Delgado M.D. 2. Fabian Paulino M.D. BRIEF HOSPITAL COURSE: The patient is a 71-year-old female, who lives at home, presented to ED for a one to two-day increased shortness of breath with associated coughing. She has history of rheumatoid arthritis, diabetes, asthma, hypertension, and arthritis. On evaluation at ED, WBC was 8.3, hemoglobin and hematocrit was stable. Troponin was negative. EKG was in normal sinus rhythm. Chest x-ray showed cardiomegaly with vascular congestion. She was started on IV steroids as well as IV Lasix. She continued to have wheezing. She was then admitted for asthma exacerbation. She underwent Pulmonary consultation. The patient was prescribed inhalers, but the patient unable and unsure on how to use it. She was then admitted to telemetry for asthma exacerbation. She was given respiratory treatment and antitussives. She was initially started on Levaquin. Influenza A and B was negative. The patient had a blood culture showing Staph, possible contaminant. She was given Levaquin and vancomycin was added. Steroids were eventually tapered. She was saturating well on nasal cannula. She had a venous duplex of the lower extremity that was negative for DVT. Her echocardiogram showed ejection fraction of 60% to 65% with no evidence of left ventricular hypertrophy, no aortic regurgitation, trace mitral regurgitation. Repeat blood cultures were negative. There was no evidence of prosthetic joint infection. She was initially ordered for discharge, however, was noted to have elevated glucose. Dr. Monroe was called. Glucose level was 565. She was given NovoLog. Discharge was canceled, however, the patient refused to stay and left against medical advice. FINAL DIAGNOSES: 1. Probable community-acquired pneumonia. 2. Acute asthma exacerbation. 3. Rheumatoid arthritis. 4. Diabetes mellitus. 5. Hypertension. 6. Hypothyroidism. 7. Anemia. 8. Anxiety. 9. History of cholecystectomy. DISPOSITION: The patient left AMA. Robin Neff D.O. I have been assigned to dictate discharge summary on this account and I was not involved in the patient's management. Fidelia Patel N.P. DR: Sunny JOB#: [id number] CC:
== END 2017-06-18 19:48 | disposition left against medical advice (07) | DRG 202 ==
LOC: EMR 17:00 → 2E 18:51 → EDBEDREQ 20:52 → 4E 06-17 19:06
DX: J45.901 Unspecified asthma with (acute) exacerbation (principal); J18.9 Pneumonia, unspecified organism; M06.9 Rheumatoid arthritis, unspecified; E11.9 Type 2 diabetes mellitus without complications; D64.9 Anemia, unspecified; E03.9 Hypothyroidism, unspecified; E66.01 Morbid (severe) obesity due to excess calories; I11.0 Hypertensive heart disease with heart failure; I50.9 Heart failure, unspecified
CPT/HCPCS: 36415; 36600; 71045; 80048; 80053; 81003; 82550; 82553; 82803; 82947; 82962; 83605; 83880; 84484; 85007; 85025; 86140; 86710; 87040; 87070; 87181; 87205; 90732; 93005; 93306; 93970; 94640; 94664; 97803; 99285; J1815; J7620; S5561